=== PATIENT | female | born 1970 | race Caucasian/White ===

== ENCOUNTER → 2018-04-26 15:01 | Outpatient (CLI) | payer MEDICARE, OTHER, SELFPAY ==
[2018-04-26 15:29] LABS: Add Manual Diff / Slide Review NO; Eosinophils Percent Auto 0.5 % (2-4); Lymphocytes Percent Auto 38.7 % (25-40); Mean Corpuscular HGB Conc 34.2 % (30-36); Mean Corpuscular Hemoglobin 30.9 PG (26-34); Mean Corpuscular Volume 90.5 fL (80-100); Monocytes Percent Auto 6.1 % (3-14); Neutrophils Absolute Auto 3200 /uL (1500-7000); Neutrophils Percent Auto 53.7 % (50-75); Platelet Count 277 X10^3/uL (150-400); Red Blood Cell Count 4.53 X10^6/uL (4.0-5.2); Red Cell Distribution Width 12.7 % (11.6-14.8)
--- NOTE | 2018-04-26 15:37 | DI.CT.S_ITS ---
PROCEDURE: CT ABDOMEN PELVIS W CON INDICATIONS: Abdominal pain TECHNIQUE: After the administration of oral and intravenous contrast, 5 mm thick sections acquired from the diaphragms to the symphysis. 5 mm thick coronal and sagittal reformats were performed. For radiation dose reduction, the following was used: automated exposure control, adjustment of mA and/or kV according to patient size. COMPARISON: [facility], US, PELVIC COMPLETE, 01/25/2017, 21:08. [facility], CT, ABDOMEN/PELVIS WITH CONTRAST, 04/08/2017, 16:18. [facility], CT, KIDNEY/ URETER/BLADDER, 12/21/2014, 23:38. [facility], CT, ABDOMEN/PELVIS WITH CONTRAST, 09/14/2011, 13:35. FINDINGS: Image quality: Excellent. ABDOMEN: Lung bases: Lung bases are clear. Heart size is normal. Solid organs: Liver is normal in size and enhancement. The main portal vein is noted to be prominent in size, but is similar to prior exams. No intraluminal filling defects are evident. Gallbladder is not enlarged or definitely inflamed. Mild prominence of the gallbladder wall may be present.. Biliary system is non-dilated. Pancreas enhances normally. Spleen is normal in size and enhancement. No adrenal nodules. Kidneys are normal in size and enhancement, without hydronephrosis. There may be an extrarenal pelvis on the right. This appearance is similar to prior studies. Peritoneum and bowel: There may be a small hiatal hernia. Otherwise, the stomach and duodenum are unremarkable. Small bowel loops are nondilated. However, there is mild wall prominence identified involving the proximal jejunal loops with borderline enlargement of the small bowel loops. The colon is within normal limits. The appendix is well-visualized and normal. There is no free fluid, loculated fluid collection or free air. No wall the distal colon is slightly prominent in size, but is noted to be decompressed and there is apparent wall thickening may be exaggerated by incomplete distention. Nodes and vessels: No retroperitoneal or mesenteric adenopathy. Aorta and inferior vena cava are normal in caliber. There is mild aortic atherosclerosis. Miscellaneous: No ventral hernias. PELVIS: Genitourinary: Bladder wall thickness is normal. The uterus appears to be surgically absent. Cystic structures are seen within the right and left adnexal regions. The cyst on the right measures up to approximately 3.2 cm. The cyst on the left measures up to approximately 3.3 cm. Miscellaneous: No inguinal hernias or adenopathy. May be a trace amount of free fluid within the pelvis. There is no loculated fluid collection. Bones: No suspicious bony lesions. No vertebral body compression fractures. Age-appropriate degenerative changes of the lumbosacral spine are present. IMPRESSION: 1. Nonspecific wall prominence involving the jejunum is suspicious for enteritis and clinical correlation is recommended. 2. No bowel obstruction. 3. Normal appendix. 4. Bilateral ovarian cysts. Followup pelvic ultrasound in 2-3 months would be helpful to ensure complete resolution. 5. Trace free fluid within the pelvis is felt to be physiologic. Dictated by: Edward Swartz M.D. on 04/26/2018 at 15:58 Approved by: Edward Swartz M.D. on 04/26/2018 at 16:02
[2018-04-26 15:39] LABS: Alanine Aminotransferase 57 IU/L (9-52); Albumin 4.6 g/dL (3.5-5.0); Albumin Globulin Ratio 1.6 (1.0-2.8); Alkaline Phosphatase 75 U/L (38-126); Aspartate Aminotransferase 44 IU/L (14-36); Bilirubin Total 0.5 mg/dL (0.2-1.3); Blood Urea Nitrogen 9 mg/dL (7-17); Calcium 9.5 mg/dL (8.4-10.2); Carbon Dioxide 27 mmol/L (22-32); Chloride 104 mmol/L (98-107); Estimated Glomerular Filt Rate > 60.0 mL/min (>60); Globulin 2.9 g/dL (1.7-4.1); Glucose 92 mg/dL (70-100); HEMOLYSIS < 15 (0-50); Potassium 4.3 mmol/L (3.4-5.1); Sodium 144 mmol/L (137-145); Total Protein 7.5 g/dL (6.3-8.2)
== END ==
PROVIDERS: PCP Family Medicine; Visit Provider Physician Assistant
DX: R10.9 Unspecified abdominal pain (principal); N83.202 Unspecified ovarian cyst, left side; N83.201 Unspecified ovarian cyst, right side
CPT/HCPCS: 36415; 74177; 80053; 85025; Q9967

== ENCOUNTER → 2018-07-12 14:05 | Outpatient (CLI) | payer MEDICARE, OTHER, SELFPAY ==
[2018-07-12 15:52] LABS: Cholesterol 224 mg/dL (140-199); HDL Cholesterol 66 mg/dL (40-60); LDL Cholesterol Calculated 118 mg/dL (<100); Triglycerides 200 mg/dL (35-150)
[2018-07-12 16:06] LABS: Vitamin D 25 Hydroxy (D3) 17.3 ng/mL (30.0-100.0)
[2018-07-12 16:18] LABS: TSH w/ Reflex to FT4 2.12 uIU/mL (0.47-4.68)
== END ==
PROVIDERS: PCP Student in an Organized Health Care Education/Training Program; Visit Provider Student in an Organized Health Care Education/Training Program
DX: E55.9 Vitamin D deficiency, unspecified (principal); Z13.220 Encounter for screening for lipoid disorders; R63.5 Abnormal weight gain
CPT/HCPCS: 36415; 80061; 82306; 84443

== ENCOUNTER → 2018-07-19 11:53 | Outpatient (CLI) | payer MEDICARE, OTHER, SELFPAY ==
--- NOTE | 2018-07-19 11:56 | DI.US.S_ITS ---
PROCEDURE: US PELVIC COMPLETE INDICATIONS: OVARIAN CYSTS ON CT TECHNIQUE: Real-time scanning was performed of the pelvic organs, with image documentation. Additional endovaginal scanning was necessary due to incomplete visualization of the adnexal and endometrial structures by transabdominal scanning. COMPARISON: [facility], CT, CT ABDOMEN PELVIS W CON, 04/26/2018, 16:08. [facility], CT, ABDOMEN/PELVIS WITH CONTRAST, 04/08/2017, 16:18. [facility], US, PELVIC COMPLETE, 01/25/2017, 21:08. FINDINGS: Transabdominal scanning: Limited scanning through the kidneys shows no hydronephrosis. No pathologic free abdominal or pelvic fluid. Endovaginal scanning: Uterus: Uterus is surgically absent. Ovaries: Right ovary measures 4.2 x 2.9 x 2.5 cm. Left ovary measures 2.7 x 2 point 2 x 2 0.0 cm. There is a complex cystic mass in the right ovary measuring 3.0 x 3.6 x 2.3 cm with a 2.3 x 0.7 x 1.7 solid, echogenic component. On Doppler ultrasound, there is no definitive vascularity within the mass. A 1.5 x 1.0 x 1.5 cm complex cyst is noted in the left ovary. On pelvic ultrasound, there is peripheral vascularity. In addition, there is a 2.3 x 1.7 x 2.1 cm simple cyst in the left ovary. IMPRESSION: 1. Bilateral complex cystic masses the ovaries. The largest one is in the right ovary measuring 3.0 x 3.6 x 3.3 cm, most likely hemorrhagic cyst. Recommend short-term followup in 6 weeks. 2. Absence of uterus consistent with hysterectomy. Dictated by: Jillian Hernandez M.D. on 07/19/2018 at 15:13 Approved by: Jillian Hernandez M.D. on 07/19/2018 at 15:18
== END ==
PROVIDERS: PCP Student in an Organized Health Care Education/Training Program; Visit Provider Student in an Organized Health Care Education/Training Program
DX: N83.292 Other ovarian cyst, left side (principal); N83.291 Other ovarian cyst, right side; Z90.710 Acquired absence of both cervix and uterus
CPT/HCPCS: 76830; 76856

== ENCOUNTER → 2018-08-09 15:10 | Outpatient (CLI) | payer MEDICARE, OTHER, SELFPAY ==
--- NOTE | 2018-08-09 15:13 | DI.MG.S_ITS ---
BILATERAL DIGITAL SCREENING MAMMOGRAM 3D/2D WITH CAD: 08/09/2018 CLINICAL: Routine screening. Comparison is made to exams dated: 12/17/2006 mammogram and 10/15/2005 mammogram - [facility]. The tissue of both breasts is extremely dense, which lowers the sensitivity of mammography. Current study was also evaluated with a Computer Aided Detection (CAD) system. No significant masses, calcifications, or other findings are seen in either breast. There has been no significant interval change. IMPRESSION: NEGATIVE There is no mammographic evidence of malignancy. A 1 year screening mammogram is recommended. This exam was interpreted at Station ID: [id number]. NOTE: For mammograms, a report in lay terms will be sent to the patient. Approximately 15% of breast malignancies will not be visualized mammographically. In the management of a palpable breast mass, a negative mammogram must not discourage biopsy of a clinically suspicious lesion. Electronically Signed By: Sabino sykes/henrique:08/09/2018 17:31:44 letter sent: Normal Exam ACR BI-RADS Category 1: Negative [id number]
== END ==
PROVIDERS: PCP Student in an Organized Health Care Education/Training Program; Visit Provider Student in an Organized Health Care Education/Training Program
DX: Z12.31 Encounter for screening mammogram for malignant neoplasm of breast (principal)
CPT/HCPCS: 77063; 77067

== ENCOUNTER → 2018-08-23 10:55 | Outpatient (CLI) | payer MEDICARE, OTHER, SELFPAY ==
[2018-08-23 12:27] LABS: Cancer Antigen 125 17 U/mL (0-35)
[2018-08-27 15:38] LABS: Human HE4 Antigen 37 pmol/L
== END ==
PROVIDERS: PCP Student in an Organized Health Care Education/Training Program
DX: N83.209 Unspecified ovarian cyst, unspecified side (principal)
CPT/HCPCS: 36415; 86304; 86305

== ENCOUNTER 2018-08-25 17:10 | Emergency (ER) | payer MEDICARE, OTHER, SELFPAY ==
[2018-08-25 17:31] VITALS: BP 107/70; PULSE 73; RESP 15; TEMP 37.1; O2SAT 100; BMI 23.0
--- NOTE | 2018-08-25 17:42 | DI.US.S_ITS ---
PROCEDURE: US PELVIC COMPLETE INDICATIONS: LEFT LOWER QUADRANT PAIN TECHNIQUE: Real-time scanning was performed of the pelvic organs, with image documentation. Additional endovaginal scanning was necessary due to incomplete visualization of the adnexal and endometrial structures by transabdominal scanning. COMPARISON: [facility], , PELVIC COMPLETE, 07/19/2018, 12:17. [facility], , PELVIC COMPLETE, 01/25/2017, 21:08. FINDINGS: Transabdominal scanning: Limited scanning through the kidneys shows no hydronephrosis. No pathologic free abdominal or pelvic fluid. Endovaginal scanning: Uterus: Surgically absent. Ovaries: Ovary measures 2.5 x 1.9 x 1.5 cm and the left measures 3.1 x 2.5 x 1.8 cm. There is a moderately complex cyst in the left ovary measuring 2.1 x 1.3 x 1.2 cm containing internal echoes without visualized internal vascularity. IMPRESSION: Prior hysterectomy. Mildly complex left ovarian cyst measuring up to 2.1 cm and otherwise the ovaries appear normal. Sonographic followup to confirm resolution of the left ovarian cyst is recommended. Dictated by: Dwayne Hernandez M.D. on 08/25/2018 at 19:23 Approved by: Dwayne Hernandez M.D. on 08/25/2018 at 19:28
[2018-08-25] MEDS: SODIUM CHLORIDE 0.9% 1,000 ML 1000 ML IV (18:13)
[2018-08-25] MEDS: KETOROLAC 60 MG/2 ML VIAL 30 MG IV (18:15)
[2018-08-25] MEDS: ONDANSETRON 4 MG/2 ML INJ IV (18:16)
--- NOTE | 2018-08-25 18:20 | ED.FEMALEGU ---
HPI - Female Genitourinary <ANGELICA Le - Last Filed: 08/25/18 20:14> General Chief complaint: OB/Uterine Contractions Stated complaint: PAIN, STATES OVARIAN CYSTS Time Seen by Provider: 08/25/18 17:32 Source: patient and family Mode of arrival: ambulatory Limitations: no limitations History of Present Illness HPI Narrative: The patient is a 48-year-old female nonsmoker presents with her daughter for chief complaint left lower quadrant pain and right lower quadrant pain. She has history of ovarian cysts, and planned surgery on 09/09/2018. She denies any fevers vomiting or diarrhea. She has not taken anything for the pain since this morning when she took ibuprofen and Tylenol. She denies any dysuria urgency or frequency. She denies any vaginal discharge or bleeding. Related Data Home Medications Medication Instructions Recorded Confirmed duloxetine 30 mg capsule,delayed 30 mg PO DAILY 08/18/18 08/24/18 release Previous Rx's Medication Instructions Recorded ketorolac 10 mg PO Q4-6H PRN 2 Days #8 tab 08/25/18 tramadol 50 mg PO Q8H PRN #7 tab 08/25/18 Allergies Allergy/AdvReac Type Severity Reaction Status Date / Time cephalexin [From KEFLEX] Allergy Severe DRY HEAVES Verified 08/25/18 17:31 Review of Systems <ANGELICA Le - Last Filed: 08/25/18 20:14> Review of Systems GENERAL: Denies chills, fatigue, malaise, fever, sweats. HEENT: Denies sinus pain, ear pain, sore throat, difficulty swallowing, dizziness. RESPIRATORY: Denies dyspnea, cough, wheezing, hemoptysis, sputum. CARDIOVASCULAR: Denies chest pain, palpitations, orthopnea, edema, GASTROINTESTINAL: see HPI : See HPI MUSCULOSKELETAL: denies weakness, joint pain, or bony pain SKIN: Denies rash, skin lesions, or other NEUROLOGIC: Denies weakness, headache, numbness, change in speech, confusion, seizures, incoordination. PSYCHIATRIC: No concerning psychosocial issues. 12 point review of systems is negative except for those stated above PFSH <ANGELICA Le - Last Filed: 08/25/18 20:14> Medical History Ovarian cyst (Acute) Interstitial cystitis (Chronic) Surgical History History of breast biopsy (Resolved) History of hysterectomy (Resolved) History of surgical removal of nipple (Resolved) History of tonsillectomy (Resolved) Status post epidural steroid injection (Resolved) Social History (Updated 08/18/18 @ 15:26 by Samia Diaz LPN) household members: spouse Smoking Status: Never smoker alcohol intake: never substance use type: does not use additional social history: Adopted Social History household members: spouse Smoking Status: Never smoker alcohol intake: never substance use type: does not use additional social history: Adopted Exam <ANGELICA Le - Last Filed: 08/25/18 20:14> Narrative Exam Narrative: GENERAL: This is a well-nourished, well-developed patient lying on side HEAD: Atraumatic. Normocephalic. No temporal or scalp tenderness. EYES: Pupils equal round and reactive. Extraocular motions intact. No scleral icterus. No injection or drainage. ENT: Nose without bleeding, purulent drainage or septal hematoma. Throat without erythema, tonsillar hypertrophy or exudate. Uvula midline. Airway patent. NECK: Trachea midline. No JVD or lymphadenopathy. Supple, nontender, no meningeal signs. CARDIOVASCULAR: Regular rate and rhythm without murmurs, gallops, or rubs. RESPIRATORY: Clear to auscultation. Breath sounds equal bilaterally. No wheezes, rales, or rhonchi. No cough. No accessory muscle use. No increased respiratory effort GASTROINTESTINAL: Abdomen soft, left lower quadrant tenderness to palpation, nondistended. No hepato-splenomegaly, or palpable masses. No guarding. active bowel sounds all 4 quadrants EXTREMITIES: No clubbing, cyanosis, or edema. No joint tenderness, effusion, or edema noted. BACK: Nontender without deformity or crepitance. No flank tenderness. NEURO: AOx3. SKIN: No rash or erythema. Initial Vital Signs Initial Vital Signs: Vital Signs Temperature 98.8 F 08/25/18 17:31 Pulse Rate 73 08/25/18 17:31 Respiratory Rate 15 08/25/18 17:31 Blood Pressure 107/70 08/25/18 17:31 Pulse Oximetry 100 08/25/18 17:31 <Shlomo Li DO - Last Filed: 08/25/18 20:51> Initial Vital Signs Initial Vital Signs: Vital Signs Temperature 98.8 F 08/25/18 17:31 Pulse Rate 73 08/25/18 17:31 Respiratory Rate 15 08/25/18 17:31 Blood Pressure 107/70 08/25/18 17:31 Pulse Oximetry 100 08/25/18 17:31 Course <PEDRO Le-BC - Last Filed: 08/25/18 20:14> Orders Ordered: ED Orders 08/25/18 17:42 US pelvic complete Stat 08/25/18 18:07 Complete Blood Count AUTO DIFF Stat Comprehensive Metabolic Panel Stat Discontinued Medications Sodium Chloride (Normal Saline 0.9%) 1,000 mls @ 1,000 mls/hr IV BOLUS ONE Stop: 08/25/18 18:41 Last Infusion: 08/25/18 19:17 Dose: 0 mls/hr Admin: 08/25/18 18:13 Dose: 1,000 mls/hr Ketorolac Tromethamine (Toradol) 30 mg IV NOW ONE Stop: 08/25/18 17:45 Last Admin: 08/25/18 18:15 Dose: 30 mg Ondansetron HCl (Zofran) 4 mg IV NOW ONE Stop: 08/25/18 17:45 Last Admin: 08/25/18 18:16 Dose: 4 mg Tramadol HCl (Ultram) 50 mg PO NOW ONE Stop: 08/25/18 18:55 Last Admin: 08/25/18 19:15 Dose: 50 mg Vital Signs - 8 hr 08/25/18 17:31 08/25/18 19:52 Temperature 98.8 F 97.9 F Pulse Rate 73 71 Respiratory Rate 15 20 Blood Pressure 107/70 Blood Pressure [Left Arm] 112/51 L Pulse Oximetry 100 100 <Shlomo Li DO - Last Filed: 08/25/18 20:51> Orders Ordered: ED Orders 08/25/18 17:42 US pelvic complete Stat 08/25/18 18:07 Complete Blood Count AUTO DIFF Stat Comprehensive Metabolic Panel Stat Discontinued Medications Sodium Chloride (Normal Saline 0.9%) 1,000 mls @ 1,000 mls/hr IV BOLUS ONE Stop: 08/25/18 18:41 Last Infusion: 08/25/18 19:17 Dose: 0 mls/hr Admin: 08/25/18 18:13 Dose: 1,000 mls/hr Ketorolac Tromethamine (Toradol) 30 mg IV NOW ONE Stop: 08/25/18 17:45 Last Admin: 08/25/18 18:15 Dose: 30 mg Ondansetron HCl (Zofran) 4 mg IV NOW ONE Stop: 08/25/18 17:45 Last Admin: 08/25/18 18:16 Dose: 4 mg Tramadol HCl (Ultram) 50 mg PO NOW ONE Stop: 08/25/18 18:55 Last Admin: 08/25/18 19:15 Dose: 50 mg Vital Signs - 8 hr 08/25/18 17:31 08/25/18 19:52 Temperature 98.8 F 97.9 F Pulse Rate 73 71 Respiratory Rate 15 20 Blood Pressure 107/70 Blood Pressure [Left Arm] 112/51 L Pulse Oximetry 100 100 MDM - Female Genitourinary <PEDRO Le- - Last Filed: 08/25/18 20:14> Lab Data Result diagrams: 08/25/18 18:07 08/25/18 18:07 Lab Results 08/25/18 08/25/18 Range/Units 18:07 18:07 WBC 4.0 L (4.5-11.0) X10^3/uL RBC 4.52 (4.0-5.2) X10^6/uL Hgb 13.8 (12.0-16.0) g/dL Hct 41.1 (36-46) % MCV 90.8 (80-100) fL MCH 30.6 (26-34) PG MCHC 33.6 (30-36) % RDW 13.2 (11.6-14.8) % Plt Count 240 (150-400) X10^3/uL Neut % (Auto) 62.8 (50-75) % Lymph % (Auto) 28.3 (25-40) % [place] % (Auto) 7.6 (3-14) % Eos % (Auto) 0.6 L (2-4) % Baso % (Auto) 0.7 (0-2) % Neut # (Auto) 2500 (0406-5398) /uL Lymph # (Auto) 1100 (1305-5360) /uL [place] # (Auto) 300 (0-900) /uL Eos # (Auto) 0 (0-450) /uL Baso # (Auto) 0 (0-100) /uL Sodium 136 L (137-145) mmol/L Potassium 4.0 (3.4-5.1) mmol/L Chloride 102 (98-107) mmol/L Carbon Dioxide 24 (22-32) mmol/L BUN 17 (7-17) mg/dL Creatinine 0.60 (0.52-1.04) mg/dL Estimated GFR > 60.0 (>60) mL/min BUN/Creatinine Ratio 28.3 H (6-22) Glucose 99 (70-100) mg/dL Calcium 8.9 (8.4-10.2) mg/dL Total Bilirubin 0.4 (0.2-1.3) mg/dL AST 23 (14-36) IU/L ALT 26 (9-52) IU/L Alkaline Phosphatase 73 (38-126) U/L Total Protein 7.1 (6.3-8.2) g/dL Albumin 4.5 (3.5-5.0) g/dL Globulin 2.6 (1.7-4.1) g/dL Albumin/Globulin Ratio 1.7 (1.0-2.8) Imaging Data Pelvic US: Radiologist's impression: [place] [address] Ultrasound Report Signed Patient: Pauly Baer KMR#: [id number] : 1970Acct:[id number] Age/Sex: 48 / FDate of Service: 08/25/18 Loc: ED Accession Number: [id number] Procedure: US pelvic complete Ordering Provider: Rachel Newell- PROCEDURE: US PELVIC COMPLETE INDICATIONS: LEFT LOWER QUADRANT PAIN TECHNIQUE: Real-time scanning was performed of the pelvic organs, with image documentation. Additional endovaginal scanning was necessary due to incomplete visualization of the adnexal and endometrial structures by transabdominal scanning. COMPARISON: [facility], , US PELVIC COMPLETE, 07/19/2018, 12:17. [facility], , PELVIC COMPLETE, 01/25/2017, 21:08. FINDINGS: Transabdominal scanning: Limited scanning through the kidneys shows no hydronephrosis. No pathologic free abdominal or pelvic fluid. Endovaginal scanning: Uterus: Surgically absent. Ovaries: Ovary measures 2.5 x 1.9 x 1.5 cm and the left measures 3.1 x 2.5 x 1.8 cm. There is a moderately complex cyst in the left ovary measuring 2.1 x 1.3 x 1.2 cm containing internal echoes without visualized internal vascularity. IMPRESSION: Prior hysterectomy. Mildly complex left ovarian cyst measuring up to 2.1 cm and otherwise the ovaries appear normal. Sonographic followup to confirm resolution of the left ovarian cyst is recommended. Dictated by: Dwayne Hernandez M.D. on 08/25/2018 at 19:23 Approved by: Dwayne Hernandez M.D. on 08/25/2018 at 19:28 [facility] Narrative Medical decision making narrative: The patient is a 48-year-old female presents with pelvic pain from known pelvic cyst. She states that one was growing rapidly, and possibly metastatic. She presented with acutely worsening pain. She had a pelvic ultrasound that showed no acute etiology. She is afebrile, had a grossly normal CBC CMP. She declined to give a UA prior to discharge. I did discuss at length that she has a follow-up with her primary care provider as well as her OBGYN. She was treated with Toradol and tramadol in the emergency department. I did give her prescriptions for tramadol as well as Toradol, with a clear discussion should not take any other NSAIDs when taking the Toradol. Patient declined any need for Zofran as she states she has plenty at home. No questions or concerns upon discharge. Return precautions discussed including acute concerns such as chest pain, heart attack, inability keep down fluids. <Shlomo Li, DO - Last Filed: 08/25/18 20:51> Lab Data Lab Results 08/25/18 08/25/18 Range/Units 18:07 18:07 WBC 4.0 L (4.5-11.0) X10^3/uL RBC 4.52 (4.0-5.2) X10^6/uL Hgb 13.8 (12.0-16.0) g/dL Hct 41.1 (36-46) % MCV 90.8 (80-100) fL MCH 30.6 (26-34) PG MCHC 33.6 (30-36) % RDW 13.2 (11.6-14.8) % Plt Count 240 (150-400) X10^3/uL Neut % (Auto) 62.8 (50-75) % Lymph % (Auto) 28.3 (25-40) % [place] % (Auto) 7.6 (3-14) % Eos % (Auto) 0.6 L (2-4) % Baso % (Auto) 0.7 (0-2) % Neut # (Auto) 2500 (8242-6514) /uL Lymph # (Auto) 1100 (5785-2159) /uL [place] # (Auto) 300 (0-900) /uL Eos # (Auto) 0 (0-450) /uL Baso # (Auto) 0 (0-100) /uL Sodium 136 L (137-145) mmol/L Potassium 4.0 (3.4-5.1) mmol/L Chloride 102 (98-107) mmol/L Carbon Dioxide 24 (22-32) mmol/L BUN 17 (7-17) mg/dL Creatinine 0.60 (0.52-1.04) mg/dL Estimated GFR > 60.0 (>60) mL/min BUN/Creatinine Ratio 28.3 H (6-22) Glucose 99 (70-100) mg/dL Calcium 8.9 (8.4-10.2) mg/dL Total Bilirubin 0.4 (0.2-1.3) mg/dL AST 23 (14-36) IU/L ALT 26 (9-52) IU/L Alkaline Phosphatase 73 (38-126) U/L Total Protein 7.1 (6.3-8.2) g/dL Albumin 4.5 (3.5-5.0) g/dL Globulin 2.6 (1.7-4.1) g/dL Albumin/Globulin Ratio 1.7 (1.0-2.8) Discharge Plan Departure Patient Disposition: Home Clinical Impression: Ovarian cyst Qualifiers: Laterality: left Qualified Code(s): N83.202 - Unspecified ovarian cyst, left side Discharge Date/Time: 08/25/18 19:58 Interventions: ED Discharge Assessment Last Done: 08/25/18 19:57 Instructions: DI for Ovarian Cyst Activity Restrictions/Additional Instructions: Your ultrasound shows an ovarian cyst. Please follow up with your primary care provider as we discussed. Your ovarian cyst is still complex but appears smaller than previous. I have given you a prescription of Toradol for pain. Do not take this with any other NSAIDs such as Aleve or ibuprofen. I have also given you a prescription of tramadol, which can be constipating and sedating. Please follow up with primary care provider as well as her OBGYN as soon as possible. Please come back to emergency department for any acute concerns. Prescriptions: New tramadol 50 mg tablet 50 mg PO Q8H PRN (Reason: pain) Qty: 7 RF: 0 ketorolac 10 mg tablet 10 mg PO Q4-6H PRN (Reason: pain) 2 Days Qty: 8 RF: 0 No Action duloxetine [Cymbalta] 30 mg capsule,delayed release(DR/EC) 30 mg PO DAILY RF: 0 Referrals: Kenny Wilkinson MD [Primary Care Provider] - <Shlomo Li DO - Last Filed: 08/25/18 20:51> Cosign ED Attending Esauature Attestation: I was available for consultation during this patient's emergency department encounter
[2018-08-25 18:23] LABS: Add Manual Diff / Slide Review NO; Basophils Absolute Auto 0 /uL (0-100); Basophils Percent Auto 0.7 % (0-2); Eosinophils Absolute Auto 0 /uL (0-450); Eosinophils Percent Auto 0.6 % (2-4); Hematocrit 41.1 % (36-46); Hemoglobin 13.8 g/dL (12.0-16.0); Lymphocytes Absolute Auto 1100 /uL (1100-4500); Lymphocytes Percent Auto 28.3 % (25-40); Mean Corpuscular HGB Conc 33.6 % (30-36); Mean Corpuscular Hemoglobin 30.6 PG (26-34); Mean Corpuscular Volume 90.8 fL (80-100); Monocytes Absolute Auto 300 /uL (0-900); Monocytes Percent Auto 7.6 % (3-14); Neutrophils Absolute Auto 2500 /uL (1500-7000); Neutrophils Percent Auto 62.8 % (50-75); Platelet Count 240 X10^3/uL (150-400); Red Blood Cell Count 4.52 X10^6/uL (4.0-5.2); Red Cell Distribution Width 13.2 % (11.6-14.8)
[2018-08-25 18:38] LABS: Alanine Aminotransferase 26 IU/L (9-52); Albumin 4.5 g/dL (3.5-5.0); Albumin Globulin Ratio 1.7 (1.0-2.8); Alkaline Phosphatase 73 U/L (38-126); Aspartate Aminotransferase 23 IU/L (14-36); BUN Creatinine Ratio 28.3 (6-22); Bilirubin Total 0.4 mg/dL (0.2-1.3); Blood Urea Nitrogen 17 mg/dL (7-17); Calcium 8.9 mg/dL (8.4-10.2); Carbon Dioxide 24 mmol/L (22-32); Chloride 102 mmol/L (98-107); Estimated Glomerular Filt Rate > 60.0 mL/min (>60); Globulin 2.6 g/dL (1.7-4.1); Glucose 99 mg/dL (70-100); HEMOLYSIS < 15 (0-50); Sodium 136 mmol/L (137-145); Total Protein 7.1 g/dL (6.3-8.2)
[2018-08-25] MEDS: TRAMADOL 50 MG TABLET PO (19:15)
[2018-08-25 19:52] VITALS: BP 112/51; PULSE 71; RESP 20; TEMP 36.6; O2SAT 100
== END 2018-08-25 19:58 | disposition home or self-care (01) ==
PROVIDERS: Emergency Provider Nurse Practitioner Family; Family Provider Student in an Organized Health Care Education/Training Program; PCP Student in an Organized Health Care Education/Training Program
DX: N83.202 Unspecified ovarian cyst, left side (principal)
CPT/HCPCS: 36591; 76830; 76856; 80053; 85025; 96361; 96374; 96375; 99283; 99284; J1885; J2405

== ENCOUNTER → 2018-08-30 10:36 | Outpatient (CLI) | payer MEDICARE, OTHER, SELFPAY ==
--- NOTE | 2018-08-30 10:39 | DI.RAD.S_ITS ---
PROCEDURE: FL UPPER GI W AIR INDICATIONS: Possible hiatal hernia COMPARISON: [facility], CT, CT ABDOMEN PELVIS W CON, 04/26/2018, 16:08. [facility], US, US PELVIC COMPLETE, 08/25/2018, 18:13. FINDINGS: KUB: Preprocedural nutritional services host film demonstrates a normal bowel gas pattern. No suspicious abdominal calcifications. Visualized solid organ contours appear normal. Bony structures appear unremarkable. Esophagus: Esophageal mucosa is normal on air-contrast views. On single-contrast views, there is normal esophageal peristalsis. No strictures, extrinsic mass effects, or diverticula. There is a small sliding hiatal hernia. Mild gastroesophageal reflux is present. There is normal transit of a calibrated barium tablet through the esophagus. Stomach: The stomach is normally distensible, with normal rugal fold thickness. No mucosal masses or ulcers. Pylorus and duodenal bulb appear normal in morphology. Duodenal folds are normal in thickness as well. IMPRESSION: 1. Small sliding hiatal hernia. 2. Mild gastroesophageal reflux. Dictated by: Jillian Hernandez M.D. on 08/30/2018 at 11:30 Approved by: Jillian Hernandez M.D. on 08/30/2018 at 11:43
== END ==
PROVIDERS: Family Provider Student in an Organized Health Care Education/Training Program; PCP Student in an Organized Health Care Education/Training Program; Visit Provider Surgery
DX: K44.9 Diaphragmatic hernia without obstruction or gangrene (principal); K21.9 Gastro-esophageal reflux disease without esophagitis
CPT/HCPCS: 74247

== ENCOUNTER 2018-09-09 12:22 | Day surgery (SDC) | payer MEDICARE, OTHER, SELFPAY ==
[2018-08-24 10:32] VITALS: BMI 23.0
[2018-09-09] VITALS (14 sets, daily range): BP systolic 107–132; BP diastolic 67–81; PULSE 62–100; RESP 8–17; TEMP 36.4–37.1; O2SAT 95–100; BMI 23.9
--- NOTE | 2018-09-09 | PATH_ITS ---
[facility] Accession Number: [id number] . 01 Material submitted: . FALLOPIAN TUBE/OVARY - BILATERAL FALLOPIAN TUBES AND OVARIES . 02 Diagnosis: Bilateral Fallopian Tubes and Ovaries, Procedure Not Specified: Fragments of ovary with no significant histomorphologic abnormality. Two fallopian tube with benign paratubal cysts (1-7 mm in greatest dimension) and no significant histomorphologic abnormality. [facility]/09/12/2018 . 02 Electronically signed: . Yasmin Easley MD, Pathologist NPI- [id number] . 01 Gross description: . Received in formalin, labeled bilateral fallopian tubes/ovaries, are multiple pieces of ovarian tissue (5.0 x 2.5 x 1.5 cm in aggregate) and two fimbriated fallopian tubes (tube #1: length-6.5 cm, diameter-0.5 cm; tube #2: length-3.7 cm, diameter-0.6 cm). The ovarian tissue has alanis-yellow, shiny, bosselated serosa and alanis-white, solid, firm parenchyma with corpus albicans identified. The fallopian tubes have alanis-ross, smooth, shiny serosa with multiple paratubal cysts (0.1-0.7 cm) containing clear, colorless fluid. The lumens are alanis and unremarkable. Section code: (A1, A2) ovarian tissue, telephone claims representative serial section; (A3) fallopian tube #1, telephone claims representative serial section; (A4) fimbria #1, bilvalved, entirely submitted; (A5) fallopian tube #2, telephone claims representative serial section; (A6) fimbria #2, bivalved, entirely submitted. ([id number]) /FRR . 02 Pathologist provided ICD-10: Z30.2 . 02 CPT . 429504 Performed at: 01 [facility] [address] [place] [address], [place], [place] [id number] MD Adriano Gardner MD Phone: [phone] Performed at: 02 [facility] [address] [address] [place], [place] [id number] MD Idalia Gaxiola MD Phone: [phone]
--- NOTE | 2018-09-09 12:45 | PM.PREOP ---
Pre-operative Note Interval Note History & Physical reviewed/Exam performed by Physician: Yes Changes to H&P: No ASA Class (for procedural sedation): II
[2018-09-09] MEDS: CLINDAMYCIN 900 MG/50 ML PIGGYBACK 50 MG IV (13:12)
--- NOTE | 2018-09-09 13:39 | SUR.OPER ---
Lithotomy on padded OR bed, head on pillow, arms secured on padded arm boards at <90 degrees abduction. Legs secured in padded yellow fins stirrups.
[2018-09-09] MEDS: BUPIVACAINE 0.5% W/ EPI (PF) VIAL 15 ML INJ (13:51)
[2018-09-09] MEDS: ACETAMINOPHEN IV 1,000 MG/100 ML VIAL 400 MG IV (13:55)
--- NOTE | 2018-09-09 14:14 | PM.GYNOP.1 ---
Operative Date/Time/Diagnoses Date of procedure: 09/09/18 Time of procedure: 14:14 Pre-op diagnosis: Pelvic pain Recurrent ovarian cyst Post-op diagnosis: same Procedure: Procedures Operation Date: 09/09/18 13:30 Actual Procedures Side Surgeon p Diagnostic Laparoscopy with bilateral salpingoophorectomy Neftali Baker MD Indications: Pelvic pain Recurrent ovarian cyst Surgeon: Neftali Baker Anesthesia Type: General Operative Notes Findings: Normal tubes and ovaries bilateral Closure Type: primary Specimen(s): left tube & ovary and right tube & ovary Estimated blood loss (mL): 25 Blood products transfused: none Procedure in detail: The patient was placed supine upon the operating table and anesthetized. She was then placed in the dorsal lithotomy position and examined under anesthesia. Under anesthesia she was felt to have an absent uterus and no distinct masses. the patient was then draped and prepared in the usual fashion. a sponge stick was placed into the vagina for elevation of the remaining uterine cervix. Attention was then turned to the abdomen. approximately 6 cc of 0.5% Marcaine in 1 to [id number] epinephrine were injected into the umbilicus. Sharp knife incision was made. The Veress needle was placed and approximately 4.3 L of carbon dioxide gas were insufflated to a final resting pressure of 15 cm of water. The Veress needle was withdrawn. The large 12 mm trocar was set in place. The laparoscopic was placed there through in the pelvic contents visualized. Patient had a large amount of bowel or pelvis which was moved in a cephalad direction. The right tube and ovary could be seen. It appeared normal. the left tube and ovary could be seen and appeared normal. 5 mm ports were then placed laterally after injection with 0.5% Marcaine in 1 to [id number] epinephrine. These were done under direct laparoscopic vision. to the left-hand port the right tube was grasped and elevated. PlasmaKinetic forceps was placed through the right port and the infundibulopelvic ligament was cauterized and cut sequentially until the ovary was free. This ovary and tube were then pulled through the umbilicus and with the scope and trocar. This was sent for pathologic identification. The large 12 mm trocar was set in place. Pelvic contents were visualized. The left tube was grasped to the right hand port and elevated. The PlasmaKinetic placed to the left-hand port was used to cauterize the infundibulopelvic ligament and the remainder of the ligament attaching the ovary and tube. The scope was placed through the right lateral port. Large grasping forceps was used through the 12 mm port and the ovary and tube removed without difficulty. the 12 mm port was placed again. Pelvic contents were visualized and no bleeding points were seen. To the right hand port the suction tearoom hostess copiously irrigated the pelvis. There were no bleeding points. Scopes and trocars were then withdrawn. The umbilical incision was closed with a deep 0 Vicryl suture. it was further approximated with running three 0 Vicryl suture. the two 5 mm sites were closed with horizontal mattress three 0 Vicryl suture. skin was approximated all areas using Steri-Strips. Sponge stick was removed from the vagina. The patient was taken to the recovery room in a satisfactory condition. Complications: none Post-operative Condition: stable Disposition: PACU Plan for aftercare: Home
--- NOTE | 2018-09-09 14:21 | P.OP_ITS ---
Operative Date/Time/Diagnoses Date of procedure: 09/09/18 Time of procedure: 14:14 Pre-op diagnosis: Pelvic pain Recurrent ovarian cyst Post-op diagnosis: same Procedure: Procedures Operation Date: 09/09/18 13:30 Actual Procedures Side Surgeon p Diagnostic Laparoscopy with bilateral salpingoophorectomy Neftali Baker MD Indications: Pelvic pain Recurrent ovarian cyst Surgeon: Neftali Baker Anesthesia Type: General Operative Notes Findings: Normal tubes and ovaries bilateral Closure Type: primary Specimen(s): left tube & ovary and right tube & ovary Estimated blood loss (mL): 25 Blood products transfused: none Procedure in detail: The patient was placed supine upon the operating table and anesthetized. She was then placed in the dorsal lithotomy position and examined under anesthesia. Under anesthesia she was felt to have an absent uterus and no distinct masses. the patient was then draped and prepared in the usual fashion. a sponge stick was placed into the vagina for elevation of the remaining uterine cervix. Attention was then turned to the abdomen. approximately 6 cc of 0.5% Marcaine in 1 to [id number] epinephrine were injected into the umbilicus. Sharp knife incision was made. The Veress needle was placed and approximately 4.3 L of ca rbon dioxide gas were insufflated to a final resting pressure of 15 cm of water. The Veress needle was withdrawn. The large 12 mm trocar was set in place. The laparoscopic was placed there through in the pelvic contents visualized. Patient had a large amount of bowel or pelvis which was moved in a cephalad direction. The right tube and ovary could be seen. It appeared normal. the left tube and ovary could be seen and appeared normal. 5 mm ports were then placed laterally after injection with 0.5% Marcaine in 1 to [id number] epinephrine. These were done under direct laparoscopic vision. to the left-hand port the right tube was grasped and elevated. PlasmaKinetic forceps was placed through the right port and the infundibulopelvic ligament was cauterized and cut sequentially until the ovary was free. This ovary and tube were then pulled through the umbilicus and with the scope and trocar. This was sent for pathologic identification. The large 12 mm trocar was set in place. Pelvic contents were visualized. The left tube was grasped to the right hand port and elevated. The PlasmaKinetic placed to the left-hand port was used to cauterize the infundibulopelvic ligament and the remainder of the ligament attaching the ovary and tube. The scope was placed through the right lateral port. Large grasping forceps was used through the 12 mm port and the ovary and tube removed without difficulty. the 12 mm port was placed again. Pelvic contents were visualized and no bleeding points were seen. To the right hand port the suction lather apprentice copiously irrigated the pelvis. There were no bleeding points. Scopes and trocars were then withdrawn. The umbilical incision was closed with a deep 0 Vicryl suture. it was further approximated with running three 0 Vicryl suture. the two 5 mm sites were closed with horizontal mattress three 0 Vicryl suture. skin was approximated all areas using Steri-Strips. Sponge stick was removed from the vagina. The patient was taken to the recovery room in a satisfactory condition. Complications: none Post-operative Condition: stable Disposition: PACU Plan for aftercare: Home
--- NOTE | 2018-09-09 14:21 | PM.DS.1 ---
History of Present Illness Date Patient Seen: 09/09/18 Time Patient Seen: 14:21 Chief complaint: Pelvic pain/recurrent ovarian cyst Narrative: Patient had been seen and followed for pelvic pain and recurrent ovarian cysts post hysterectomy. Patient desired removal of tubes and ovaries Discharge Providers Discharge Date: 09/09/18 Primary care physician: Kenny Wilkinson MD Discharge provider: Neftali Baker MD Summary Discharge Diagnosis: Pelvic pain Recurrent ovarian cyst Hospital Course: Patient was admitted and underwent laparoscopic bilateral salpingectomy oophorectomy. Postoperatively she did well she remained afebrile stable vital signs. Status at Discharge Cognitive/behavioral status at discharge: oriented Functional status at discharge: independent ambulation Overall status at discharge: patient is back to baseline Time Spent with Patient Less than 30 minutes Exam Vital Signs (past 8 hours): - 09/09/18 12:53 Temperature 98.4 F Pulse Rate 62 Respiratory Rate 14 Blood Pressure 122/77 Pulse Oximetry 100 Oxygen Delivery Method Room Air Narrative Exam Narrative: Abdomen is soft and nondistended Incisions are not bleeding Discharge Plan Discharge Plan Patient Disposition: Home Discharge Med Rec/Prescriptions Prescriptions: New oxycodone-acetaminophen [Percocet] 5-325 mg tablet 1 tab PO Q4-6H PRN (Reason: pain) Qty: 14 RF: 0 Continued duloxetine [Cymbalta] 30 mg capsule,delayed release(DR/EC) 30 mg PO DAILY RF: 0 tramadol 50 mg tablet 50 mg PO Q8H PRN (Reason: pain) Qty: 7 RF: 0 Follow up/Referrals: Kenny Wilkinson MD [Primary Care Provider] - Discharge Orders: Discharge (Now); Ordered 09/09/18 Ordered By: Neftali Baker Provider Discharge Instructions Diet: Diet as Tolerated Activity: Up ad julio Skin/Wound/Dressing Care Skin care: Keep incisions clean and dry Report to your healthcare provider any signs of infection, such as:: chills, fever, increased pain, unusual drainage and unusual redness Dressing: Steri-Strips can be removed in one week Other wound treatment: Keep clean and dry Visit Report/Discharge Packet Instructions: DI for Laparoscopy Stand Alone Forms: Surgery Discharge Discharge Data Primary Care Provider: Kenny Wilkinson Attending Provider: Neftali Baker
[2018-09-09] MEDS: fentaNYL 100 MCG/2 ML INJ 50 MCG IV ×3 (14:27→15:19)
[2018-09-09] MEDS: ONDANSETRON 4 MG/2 ML INJ IV ×2 (14:44→15:20)
[2018-09-09] MEDS: hydrOXYzine 50 MG/ML INJ 25 MG IM (14:46)
[2018-09-09] MEDS: BENZOCAINE/MENTHOL 1 LOZ PKT 1 EACH PO (14:58)
--- NOTE | 2018-09-09 15:02 | SUR.PHASEI ---
Pt lying on lt side, mostly sleeping. Reported pain 6/10, nausea improved. C/o sore throat, cepacol lozenge provided.
--- NOTE | 2018-09-09 15:09 | SUR.PHASEI ---
Report to Sil
--- NOTE | 2018-09-09 15:31 | SUR.PHASEI ---
Medicated for pain and nausea; both improving. Dr. Baker checked on patient. VSS, resting quietly, arouses easily. Handoff report to Markos Aleman RN
--- NOTE | 2018-09-09 15:36 | SUR.PHASEI ---
Reported nausea resolved
[2018-09-09] MEDS: OXYCODONE IR 5 MG TABLET PO ×2 (16:03→16:24)
[2018-09-09] MEDS: hydrOXYzine pamoate 25 MG CAPSULE PO (16:55)
--- NOTE | 2018-09-09 16:56 | SUR.PHASEII ---
Pt expressed desire to d/c. Transferred to bathroom by wheelchair, + void. Pt reported pain increased. Returned to stretcher, lying on lt side. Medicated.
== END 2018-09-09 17:35 | disposition home or self-care (01) ==
PROVIDERS: Family Provider Student in an Organized Health Care Education/Training Program; PCP Student in an Organized Health Care Education/Training Program
PROC: (CPT 49320; principal; 2018-09-09 13:30)
DX: N83.8 Other noninflammatory disorders of ovary, fallopian tube and broad ligament (principal)
CPT/HCPCS: 58661; 88305; J0131; J0330; J1100; J2250; J2405; J3010; J3410

== ENCOUNTER 2019-01-11 21:09 | Emergency (ER) | payer MEDICARE, OTHER, SELFPAY ==
[2019-01-11 21:15] VITALS: BP 101/69; PULSE 95; RESP 18; TEMP 36.8; O2SAT 98; BMI 24.5
--- NOTE | 2019-01-12 00:20 | ED.EXTPRO ---
HPI - Extremity Problem General Chief complaint: Extremity Problem,Nontraumatic Stated complaint: Bursitis right hip, pain, IBU not strong enough Time Seen by Provider: 01/11/19 21:46 Source: patient and family Mode of arrival: ambulatory Limitations: no limitations History of Present Illness HPI Narrative: 40-year-old female nonsmoker with history of known depression and right hip bursitis presents with worsening pain in the right hip tonight. She denies any trauma or known injury. Her her symptoms are worse with motion and improved with rest. She has been using lidocaine patches and anti-inflammatories with little relief. She denies numbness, tingling or weakness. MD Complaint: extremity pain Onset (ago): week(s) Pain Consistency: constant Location: right Quality: aching Radiation: none Relieving factors: immobilization and rest Exacerbating factors: range of motion and walking Related Data Home Medications Medication Instructions Recorded Confirmed duloxetine 30 mg capsule,delayed 30 mg PO DAILY 08/18/18 01/03/19 release Previous Rx's Medication Instructions Recorded lidocaine 5 % topical patch 1 patch TOP DAILY #15 each 01/03/19 hydrocodone-acetaminophen 1 tab PO Q4-6H PRN #14 tab 01/12/19 Allergies Allergy/AdvReac Type Severity Reaction Status Date / Time cephalexin [From KEFLEX] Allergy Severe DRY HEAVES Verified 01/03/19 13:48 adhesive tape AdvReac Mild Rash Verified 01/03/19 13:48 Review of Systems Constitutional Constitutional: Denies chills, Denies fatigue, Denies fever(s), Denies frequent falls, Denies lethargy and Denies weakness Eyes Eyes: Denies change in vision, Denies eye discharge, Denies irritation and Denies loss of vision ENT Ears, Nose, Mouth, and Throat: Denies change in voice, Denies dizziness, Denies neck pain, Denies sore throat and Denies throat swelling Cardiovascular Cardiovascular: Denies chest pain, Denies irregular heart rhythm, Denies lightheadedness, Denies palpitations, Denies dyspnea, Denies dyspnea on exertion and Denies orthopnea Respiratory Respiratory: Denies cough, Denies dyspnea, Denies dyspnea on exertion and Denies wheezing Gastrointestinal Gastrointestinal: Denies abdominal pain, Denies change in bowel habits, Denies diarrhea, Denies nausea and Denies vomiting Genitourinary Genitourinary: Denies hematuria, Denies flank pain, Denies urinary incontinence and Denies urinary urgency Musculoskeletal Musculoskeletal: Denies back pain, Reports limited range of motion, Denies muscle weakness, Denies neck pain, Denies numbness and Denies tingling Integumentary/Breasts Skin/Breast: Denies pruritus, Denies erythema, Denies rash and Denies wounds Neurologic Neurologic: Denies behavioral changes, Denies confusion, Denies dizziness, Denies frequent falls, Denies loss of vision, Denies numbness, Denies tingling and Denies weakness Psychiatric Psychiatric: Denies anxiety, Denies behavioral changes, Denies confusion, Denies depression, Denies homicidal ideation and Denies suicidal ideation Endocrine Endocrine: Denies fatigue, Denies flushing and Denies palpitations Hematologic/Lymphatic Hematologic/Lymphatic: Denies easy bruising Allergic/Immunologic Allergic/Immunologic: Denies urticaria, Denies throat swelling and Denies wheezing [facility] Medical History DDD (degenerative disc disease) (Acute) GERD (gastroesophageal reflux disease) (Acute) Hiatal hernia (Acute) Interstitial cystitis (Chronic) Ovarian cyst (Acute) Surgical History History of breast biopsy (Resolved) History of hysterectomy (Resolved) History of surgical removal of nipple (Resolved) History of tonsillectomy (Resolved) S/P bilateral salpingo-oophorectomy (Resolved 09/09/18) S/P laparoscopic procedure (Resolved 09/09/18) Status post epidural steroid injection (Resolved) Social History household members: spouse Smoking Status: Never smoker alcohol intake: never substance use type: does not use additional social history: Adopted Social History household members: spouse Smoking Status: Never smoker alcohol intake: never substance use type: does not use additional social history: Adopted Exam Narrative Exam Narrative: GEN: AOx3 and in mild distress EYES: Pupils are equal, round, and reactive to light and accommodation. Extraoccular muscles are intact bilaterally. There is no subconjunctival hemorrhage or exudate. CHEST: Lungs are clear to auscultation bilaterally and free of wheezes, rales, or rhonchi. Heart rate is regular rhythm, there are no murmurs, clicks, rubs, or gallops. There is no chest wall tenderness. ABD: Abdomen is soft and nontender. There is no guarding or rebound. Bowel sounds are normal in all 4 quadrants. There is no mass or organomegaly. EXT: Patient has full but painful active range of motion of the right hip. Her symptoms are greatly improved with passive range of motion. She has no obvious deformity in denies numbness, tingling or weakness. She has pain on palpation of greater trochanter. No pain with axial loading. Some pain with external rotation SKIN: Warm, pink, and dry. No erythema or rash Initial Vital Signs Initial Vital Signs: Vital Signs Temperature 98.3 F 01/11/19 21:15 Pulse Rate 95 H 01/11/19 21:15 Respiratory Rate 18 01/11/19 21:15 Blood Pressure 101/69 01/11/19 21:15 Pulse Oximetry 98 01/11/19 21:15 Course Orders Ordered: ED Orders 01/12/19 00:31 XR hip RT 1V Stat Discontinued Medications Hydrocodone Bitart/Acetaminophen (Vicodin Prepack) 1 bottle MISC SEEINSTR ONE Stop: 01/12/19 01:43 Last Admin: 01/12/19 01:53 Dose: 1 bottle Documented by: KATTY Vital Signs Vital signs: Vital Signs - 8 hr 01/11/19 21:15 Temperature 98.3 F Pulse Rate 95 H Respiratory Rate 18 Blood Pressure 101/69 Pulse Oximetry 98 Discharge Plan Departure Patient Disposition: Home Clinical Impression: Right hip pain Discharge Date/Time: 01/12/19 01:54 Instructions: DI for Hip Pain Activity Restrictions/Additional Instructions: *You have been diagnosed with [ right hip pain ] *What to do: *Take medications as directed *Follow up with your primary care provider in 2-3 days, call for an appointment. Let them know you were seen in the Emergency Department and that we ask that you be seen in follow up *Return to ER if you should have any new, worsening or concerning symptoms Prescriptions: New hydrocodone-acetaminophen 5-325 mg tablet 1 tab PO Q4-6H PRN (Reason: pain) Qty: 14 RF: 0 No Action lidocaine 5 % adhesive patch,medicated 1 patch TOP DAILY Qty: 15 RF: 1 duloxetine [Cymbalta] 30 mg capsule,delayed release(DR/EC) 30 mg PO DAILY RF: 0 Referrals: Kenny Wilkinson MD [Primary Care Provider] - Neftali Tyler DO [Physician] -
--- NOTE | 2019-01-12 00:31 | DI.RAD.S_ITS ---
PROCEDURE: XR HIP RT 1V INDICATIONS: Right hip pain, unable to bear weight TECHNIQUE: One view of the hip were acquired. COMPARISON: None. FINDINGS: Bones: No fractures or dislocations. No suspicious bony lesions. The visualized pelvic ring appears intact. Soft tissues: No suspicious soft tissue calcifications or masses. IMPRESSION: No fracture. No osseous lesion. If symptoms and/or clinical suspicion for pathology persists, further assessment with repeat radiographs (7-10 days) or advanced imaging (e.g. CT, MRI or bone scan) may be helpful. Dictated by: Cris Stevenson MD, PhD on 01/12/2019 at 8:22 Approved by: Cris Stevenson MD, PhD on 01/12/2019 at 8:23
[2019-01-12] MEDS: HYDROCODONE/ACET 5/325 PREPACK 1 BOTTLE MISC (01:53)
== END 2019-01-12 01:54 | disposition home or self-care (01) ==
PROVIDERS: Emergency Provider Emergency Medicine; Family Provider Student in an Organized Health Care Education/Training Program; PCP Student in an Organized Health Care Education/Training Program
DX: M25.551 Pain in right hip (principal)
CPT/HCPCS: 73501; 99282; 99283

== ENCOUNTER 2019-03-31 17:09 | Emergency (ER) | payer MEDICARE, OTHER, SELFPAY ==
[2019-03-31 17:25] VITALS: BP 113/78; PULSE 104; RESP 18; TEMP 36.7; O2SAT 99; BMI 25.0
--- NOTE | 2019-03-31 18:06 | PC.NURSE ---
Cast remover at bedside. RLE elevated on pillow. Orders to remove cast and r/o DVT from Ortho at [facility].
--- NOTE | 2019-03-31 18:28 | ED.LOWEXIN ---
HPI - Extremity Injury (Lower) General Chief Complaint: Extremity Injury, Lower Stated Complaint: pain in back of calf Time Seen by Provider: 03/31/19 18:01 Source: patient Mode of arrival: Wheelchair Limitations: no limitations History of Present Illness HPI Narrative: 48-year-old female within the past several days had a cast placed on her right lower extremity after sustaining a tib-fib fracture with subsequent open reduction internal fixation. Past several days she has had pain in her right calf muscle under the splint. Was told to come to the emergency department for evaluation for concerns of a blood clot. Related Data Home Medications Medication Instructions Recorded Confirmed aspirin 81 mg tablet,delayed 81 mg PO DAILY 03/21/19 03/21/19 release Previous Rx's Medication Instructions Recorded lidocaine 5 % topical patch 1 patch TOP DAILY #15 each 01/03/19 hydrocodone-acetaminophen 1 tab PO Q4-6H PRN #14 tab 01/12/19 meloxicam 15 mg tablet 15 mg PO DAILY #30 tab 02/08/19 Allergies Allergy/AdvReac Type Severity Reaction Status Date / Time cephalexin [From KEFLEX] Allergy Severe DRY HEAVES Verified 03/31/19 17:30 adhesive tape AdvReac Mild Rash Verified 03/31/19 17:30 Review of Systems Constitutional Constitutional: Denies headache(s) ENT Ears, Nose, Mouth, and Throat: Denies headache(s) Cardiovascular Cardiovascular: Denies chest pain and Denies dyspnea Respiratory Respiratory: Denies dyspnea Musculoskeletal Comments: Right calf pain Integumentary/Breasts Skin/Breast: Denies lesions and Denies rash Neurologic Neurologic: Denies headache(s) Comments: No changes in sensory right foot Hematologic/Lymphatic Hematologic/Lymphatic: Denies easy bleeding and Denies easy bruising Patient History Medical History DDD (degenerative disc disease) (Acute) GERD (gastroesophageal reflux disease) (Acute) Hiatal hernia (Acute) Interstitial cystitis (Chronic) Ovarian cyst (Acute) Social History household members: spouse Smoking Status: Never smoker alcohol intake: never substance use type: does not use additional social history: Adopted Substance Use Type: marijuana Exam Initial Vital Signs Initial Vital Signs: Vital Signs Temperature 98.0 F 03/31/19 17:25 Pulse Rate 104 H 03/31/19 17:25 Respiratory Rate 18 03/31/19 17:25 Blood Pressure 113/78 03/31/19 17:25 Pulse Oximetry 99 03/31/19 17:25 Const General: cooperative, comfortable and well developed Orientation: alert, awake and oriented x3 HENMT Head: normal to inspection and normocephalic Cardio Pulses: dorsalis pedis present on the right Skin Other: Surgical scars consistent with her prior history appear well without signs of erythema. Extrem Other: Patient does have some tenderness to the calf. Psych Appearance: grossly normal and well kempt Procedures Cast Removal Reason for procedure: too tight Cut saw used: Yes Cast procedure: bivalve Post Removal Neuro Exam: intact Post Removal Vascular Exam: intact Patient Tolerated Procedure: No complications Orthopedic Splinting/Casting Injury #1: Side: right Lower Extremity Injury Location: ankle Lower Extremity Immobilizer: Ravin wrap (Prior cast with Ravin wrap) Post splinting neuro exam: intact Post splinting vascular exam: intact Placed by: Provider Course Orders Ordered: ED Orders 03/31/19 18:28 US periph venous low extrem rt Stat XR tibia fibula RT 2V Stat Vital Signs Vital signs: Vital Signs - 8 hr 03/31/19 17:25 03/31/19 19:45 Temperature 98.0 F 97.8 F Pulse Rate 104 H 80 Respiratory Rate 18 16 Blood Pressure 113/78 124/72 Pulse Oximetry 99 95 MDM - Extremity Injury (Lower) Imaging Data Tib-fib x-ray: Radiologist's impression: [address] [address] XRay Report Signed Patient: Pauly Baer KMR#: [id number] : 1970Acct:[id number] Age/Sex: 48 / FDate of Service: 03/31/19 Loc: ED Accession Number: [id number] Procedure: XR tibia fibula RT 2V Ordering Provider: Shlomo Li D.O. PROCEDURE: XR TIBIA FUBULA RT 2V INDICATIONS: post operative calf pain TECHNIQUE: 2 views of the tibia and fibula were acquired. COMPARISON: None. FINDINGS: Bones: No fractures or dislocations. No suspicious bony lesions. Soft tissues: No suspicious soft tissue calcifications or masses. IMPRESSION: Prior medullary leticia fixation to the tibia, no operative complications. Normal alignment. Dictated by: Dwayne Hernandez M.D. on 03/31/2019 at 18:52 Approved by: Dwayne Hernandez M.D. on 03/31/2019 at 18:53 Venous US: Radiologist's impression: [address] [address] Ultrasound Report Signed Patient: Pauly Baer KMR#: [id number] : 1970Acct:[id number] Age/Sex: 48 / FDate of Service: 03/31/19 Loc: ED Accession Number: [id number] Procedure: US periph venous low extrem rt Ordering Provider: Shlomo Li D.O. PROCEDURE: US PERIPH VENOUS LOW EXTREM RT INDICATIONS: EDEMA POST LEG FRACTURE TECHNIQUE: Real-time imaging, as well as color and pulse Doppler interrogation, were performed of the lower extremity deep veins from the inguinal ligament to the popliteal fossa. COMPARISON: None. FINDINGS: The common femoral, femoral and popliteal veins are normally compressible, and free of intraluminal thrombus. Color and pulse Doppler demonstrate normal phasic intraluminal flow. There is normal augmentation response to distal compression maneuver. IMPRESSION: No DVT found. Dictated by: Dwayne Hernandez M.D. on 03/31/2019 at 19:26 Approved by: Dwayne Hernandez M.D. on 03/31/2019 at 19:26 [facility] Narrative Medical decision making narrative: Patient is neurovascularly intact. We were able to remove the cast without any complications. She did report some relief after doing this. Ultrasound shows no signs of a blood clot. X-rays appear well. The patient was placed back in the bivalved cast and covered with an Ravin bandage she was instructed to continue all of her postoperative instructions. She was again informed that the cast could not be removed. Was informed that she needs follow-up with orthopedic provider to have a new cast placed. She expressed understanding and agreement plan. Discharge Plan Departure Patient Disposition: Home Clinical Impression: Post-operative pain Discharge Date/Time: 03/31/19 19:46 Instructions: How to Use Crutches Activity Restrictions/Additional Instructions: The cast needs to stay on. Just because it is wrapped with an Ravin bandage does not mean that it can be taken off. Continue to use the crutches and follow all of the postoperative instructions given to you by your orthopedic provider. On Wednesday contact your orthopedic surgeon in order to schedule appointment to have a new cast placed. Return to the emergency department for any new or worsening symptoms. Prescriptions: No Action lidocaine 5 % adhesive patch,medicated 1 patch TOP DAILY Qty: 15 RF: 1 meloxicam 15 mg tablet 15 mg PO DAILY Qty: 30 RF: 2 Hold Instructions: Home Medication placed on hold at Doctor's office aspirin 81 mg tablet,delayed release (DR/EC) 81 mg PO DAILY RF: 0 hydrocodone-acetaminophen 5-325 mg tablet 1 tab PO Q4-6H PRN (Reason: pain) Qty: 14 RF: 0 Referrals: Kenny Wilkinson MD [Primary Care Provider] -
--- NOTE | 2019-03-31 19:44 | PC.NURSE ---
Cast repadded by Dr. Irby and reapplied after US DVT r/o. Secured with large PAMELA wraps x2. CMS intact. Patient following up with Orthopedic surgeon next week for cast replacement. Verbalizes understanding of use of crutches and CMS checks.
[2019-03-31 19:45] VITALS: BP 124/72; PULSE 80; RESP 16; TEMP 36.6; O2SAT 95
== END 2019-03-31 19:46 | disposition home or self-care (01) ==
PROVIDERS: Emergency Provider Emergency Medicine; PCP Student in an Organized Health Care Education/Training Program
DX: G89.18 Other acute postprocedural pain (principal)
CPT/HCPCS: 29705; 73590; 93971; 99282; 99283

== ENCOUNTER 2020-05-16 20:41 | Emergency (ER) | payer MEDICARE, OTHER, SELFPAY ==
[2020-05-16 20:48] VITALS: BP 144/107; PULSE 98; RESP 20; TEMP 36.1; O2SAT 99
--- NOTE | 2020-05-16 22:17 | ED.DENTAL ---
HPI - Dental/Oral General Chief complaint: Dental/Oral Stated complaint: headache, jaw pain, spasms Time Seen by Provider: 05/16/20 20:41 Source: patient Mode of arrival: Ambulatory Limitations: no limitations History of Present Illness HPI Narrative: 49-year-old female smoker with history of severe temporomandibular joint dysfunction presents with her in the chief complaint of ongoing pain in her jaw. She had an episode of an accidental, and brief jaw dislocation in the fall and in the aftermath required TMJ injections. She has been in touch with specialist at the [facility] and has been told he needs a jaw or replacement. She denies any new trauma. She has had no fever or chills. She states any motion makes her symptoms worse. She denies any fever chills nor trouble swallowing. Her pain is worse when she opens or closes her mouth and improves with rest Onset (ago): month(s) Duration: intermittent Severity: severe Relieving factors: nothing Treatment prior to arrival: none Related Data Previous Rx's Medication Instructions Recorded lidocaine 5 % topical patch 1 patch TOP DAILY #15 each 01/03/19 cyclobenzaprine 10 mg PO TID PRN #14 tab 05/16/20 hydrocodone-acetaminophen 1 tab PO Q4-6H PRN #10 tab 05/16/20 ketorolac 10 mg PO Q6H PRN #14 tab 05/16/20 Allergies Allergy/AdvReac Type Severity Reaction Status Date / Time cephalexin [From KEFLEX] Allergy Severe DRY HEAVES Verified 05/22/19 16:54 adhesive tape AdvReac Mild Rash Verified 05/22/19 16:54 Review of Systems Constitutional Constitutional: Denies chills, Denies fatigue, Denies fever(s), Denies frequent falls, Denies lethargy and Denies weakness Eyes Eyes: Denies change in vision, Denies eye discharge, Denies irritation and Denies loss of vision ENT Ears, Nose, Mouth, and Throat: Denies change in voice, Denies dizziness, Denies neck pain, Denies sore throat and Denies throat swelling Comments: TMJ pain Cardiovascular Cardiovascular: Denies chest pain, Denies irregular heart rhythm, Denies lightheadedness, Denies palpitations, Denies dyspnea, Denies dyspnea on exertion and Denies orthopnea Respiratory Respiratory: Denies cough, Denies dyspnea, Denies dyspnea on exertion and Denies wheezing Gastrointestinal Gastrointestinal: Denies abdominal pain, Denies change in bowel habits, Denies diarrhea, Denies nausea and Denies vomiting Musculoskeletal Musculoskeletal: Denies neck pain and Denies numbness Integumentary/Breasts Skin/Breast: Denies pruritus, Denies erythema, Denies rash and Denies wounds Neurologic Neurologic: Denies behavioral changes, Denies confusion, Denies dizziness, Denies frequent falls, Denies loss of vision, Denies numbness and Denies weakness Psychiatric Psychiatric: Denies anxiety, Denies behavioral changes, Denies confusion, Denies depression, Denies homicidal ideation and Denies suicidal ideation Endocrine Endocrine: Denies fatigue, Denies flushing and Denies palpitations Hematologic/Lymphatic Hematologic/Lymphatic: Denies easy bruising Allergic/Immunologic Allergic/Immunologic: Denies urticaria, Denies throat swelling and Denies wheezing Patient History Medical History DDD (degenerative disc disease) GERD (gastroesophageal reflux disease) Greater trochanteric bursitis of right hip Hiatal hernia Interstitial cystitis Ovarian cyst Tibia/fibula fracture Surgical History History of breast biopsy History of hysterectomy History of surgical removal of nipple History of tonsillectomy S/P bilateral salpingo-oophorectomy (09/09/18) S/P laparoscopic procedure (09/09/18) Status post epidural steroid injection Family History Family/Other Family history not known due to adoption Social History household members: spouse Smoking Status: Former smoker alcohol intake: never substance use type: does not use additional social history: Adopted Smoking Status: Former smoker alcohol intake frequency: a few times a month Substance Use Type: marijuana Exam Narrative Exam Narrative: GEN: AOx3 and in mild distress EYES: Pupils are equal, round, and reactive to light and accommodation. Extraoccular muscles are intact bilaterally. There is no subconjunctival hemorrhage or exudate. ENT: pain with palpation of L TMJ. No malocclusion. NO facial swelling or deformity. No obvious dental abscess or other abnormality CHEST: Lungs are clear to auscultation bilaterally and free of wheezes, rales, or rhonchi. Heart rate is regular rhythm, there are no murmurs, clicks, rubs, or gallops. There is no chest wall tenderness. ABD: Abdomen is soft and nontender. There is no guarding or rebound. Bowel sounds are normal in all 4 quadrants. There is no mass or organomegaly. EXT: Full painless ROM of all extremities with no loss of sensation or strength. SKIN: Warm, pink, and dry. No erythema or rash Initial Vital Signs Initial Vital Signs: Vital Signs Temperature 97 F L 05/16/20 20:48 Pulse Rate 98 H 05/16/20 20:48 Respiratory Rate 20 05/16/20 20:48 Blood Pressure 144/107 H 05/16/20 20:48 Pulse Oximetry 99 05/16/20 20:48 Course Orders Ordered: Discontinued Medications Hydrocodone Bitart/Acetaminophen (Hydrocodone/Acet 5/325 Prepack) 1 bottle MISC SEEINSTR ONE Stop: 05/16/20 22:24 Last Admin: 05/16/20 22:27 Dose: 1 bottle Documented by: CHEPE Cyclobenzaprine HCl (Cyclobenzaprine 10 Mg Prepack) 1 bottle MISC SEEINSTR ONE Stop: 05/16/20 22:24 Last Admin: 05/16/20 22:27 Dose: 1 bottle Documented by: CHEPE Ketorolac Tromethamine (Ketorolac 60 Mg/2 Ml Vial) 60 mg IM NOW ONE Stop: 05/16/20 22:24 Last Admin: 05/16/20 22:27 Dose: 60 mg Documented by: CHEPE Vital Signs Vital signs: Vital Signs - 8 hr 05/16/20 22:34 Pulse Rate 75 Respiratory Rate 17 Blood Pressure 148/77 H Pulse Oximetry 97 Discharge Plan Departure Patient Disposition: Home Clinical Impression: Chronic jaw pain Instructions: DI for Temporomandibular Disorder Activity Restrictions/Additional Instructions: *You have been diagnosed with [chronic TMJ pain] *What to do: *Take medications as directed: Prescriptions sent to [facility] in [place] *Follow up with your primary care provider in 2-3 days, call for an appointment. Let them know you were seen in the Emergency Department and that we ask that you be seen in follow up *Return to ER if you should have any new, worsening or concerning symptoms Prescriptions: New cyclobenzaprine 10 mg tablet 10 mg PO TID PRN (Reason: muscle spasm) Qty: 14 RF: 0 hydrocodone-acetaminophen 5-325 mg tablet 1 tab PO Q4-6H PRN (Reason: pain) Qty: 10 RF: 0 ketorolac 10 mg tablet 10 mg PO Q6H PRN (Reason: pain) Qty: 14 RF: 0 No Action lidocaine 5 % adhesive patch,medicated 1 patch TOP DAILY Qty: 15 RF: 1 Referrals: Kenny Wilkinson MD [Primary Care Provider] - Bill Doll DMD [Physician] - Stand Alone Forms: Work Release Note
--- NOTE | 2020-05-16 22:26 | PC.NURSE ---
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 has received steroid injection in left jaw. states Pain had increased over the past couple of days.
[2020-05-16] MEDS: HYDROCODONE/ACET 5/325 PREPACK 1 BOTTLE MISC (22:27)
[2020-05-16] MEDS: CYCLOBENZAPRINE 10 MG PREPACK 1 BOTTLE MISC (22:27)
[2020-05-16] MEDS: KETOROLAC 60 MG/2 ML VIAL IM (22:27)
[2020-05-16 22:34] VITALS: BP 148/77; PULSE 75; RESP 17; O2SAT 97
== END 2020-05-16 22:36 | disposition home or self-care (01) ==
PROVIDERS: Emergency Provider Emergency Medicine; PCP Student in an Organized Health Care Education/Training Program
DX: M26.629 Arthralgia of temporomandibular joint, unspecified side (principal)
CPT/HCPCS: 96372; 99281; 99283; J1885

== ENCOUNTER → 2020-08-07 12:14 | Outpatient (CLI) | payer MEDICARE, OTHER, SELFPAY ==
[2020-08-07] MEDS: COVID-19 VACC #1, MRNA(MOD) 100 MCG/0.5 ML VIAL IM (12:17)
== END ==
PROVIDERS: PCP Student in an Organized Health Care Education/Training Program; Visit Provider Internal Medicine
DX: Z23 Encounter for immunization (principal)
CPT/HCPCS: 0011A; 91301

== ENCOUNTER 2020-08-13 11:32 | Emergency (ER) | payer MEDICARE, OTHER, SELFPAY ==
[2020-08-13 11:37] VITALS: BP 139/77
[2020-08-13 11:38] VITALS: BP 139/77; PULSE 73; PULSE 74; RESP 16; TEMP 36.8; O2SAT 96; O2SAT 97; BMI 19.5
--- NOTE | 2020-08-13 11:44 | DI.RAD.S_ITS ---
PROCEDURE: XR CHEST 2V INDICATIONS: coughing up blood TECHNIQUE: 2 views of the chest were acquired. COMPARISON: [facility], , XR CXR 2 VIEW, 08/27/2003, 8:14. FINDINGS: Surgical changes and devices: A thoracic spine stimulator can be seen. Lungs and pleura: Lungs are clear. No pleural effusions or pneumothorax. Mediastinum: Mediastinal contours are normal. Heart size is normal. Bones and chest wall: No suspicious bony abnormalities. Mild pectus excavatum deformity can be seen. Soft tissues appear unremarkable. IMPRESSION: Clear lungs. For this patient's presenting history of hemoptysis, please consider a dedicated chest CT with contrast for further evaluation. Incidental note is made of: Pectus excavatum deformity Thoracic spine stimulator Dictated by: Ang Duran M.D. on 08/13/2020 at 11:10 Approved by: Ang Duran M.D. on 08/13/2020 at 11:11
--- NOTE | 2020-08-13 12:42 | ED.GENADULT ---
HPI - General Adult General Chief complaint: Upper Respiratory Symptoms Stated complaint: coughing up blood Time Seen by Provider: 08/13/20 12:23 Source: patient Mode of arrival: Ambulatory Limitations: no limitations History of Present Illness HPI narrative: This is a 50-year-old female comes emergency department with complaint of hemoptysis. Patient states she has had a cough for about a week. She coughed very small amount of blood today. She has not had any additional. She denies fevers, no chills. She denies any chest pain. No shortness of breath. She has had otherwise nonproductive cough. She has not had any GI issues recently other than some diarrhea on the . Patient states she has had unintended weight loss of 15 lb over the last couple months. She does smoke tobacco. She has noted that she has had some increased lower back pain in the area of her spinal stimulator which was placed approximately a year ago. Patient also had a little bit of abdominal discomfort. She has not appreciated any urinary symptoms. She has not had any new swelling in her extremities. She states her only other surgeries are for a compound fracture in her right lower extremity which she had surgical fixation. She is on a muscle relaxer for TMJ, likely tinazidine. She denies other regular medications. Occasional THC use socially. Dr. Wilkinson is her PCP. Related Data Home Medications Medication Instructions Recorded Confirmed tizanidine 4 mg tablet 4 mg PO BID PRN 05/28/20 05/28/20 Previous Rx's Medication Instructions Recorded lidocaine 5 % topical patch 1 patch TOP DAILY #15 each 01/03/19 cyclobenzaprine 10 mg PO TID PRN #14 tab 05/16/20 ketorolac 10 mg PO Q6H PRN #14 tab 05/16/20 hydrocodone 5 mg-acetaminophen 325 1 tab PO DAILY PRN #30 tab 05/28/20 mg tablet Allergies Allergy/AdvReac Type Severity Reaction Status Date / Time cephalexin [From KEFLEX] Allergy Severe DRY HEAVES Verified 05/22/19 16:54 adhesive tape AdvReac Mild Rash Verified 05/22/19 16:54 Review of Systems Review of Systems ROS Unobtainable: All systems reviewed & are unremarkable except as noted in HPI and below Patient History Medical History (Updated 08/13/20 @ 15:50 by Rachel Schroeder DO) DDD (degenerative disc disease) GERD (gastroesophageal reflux disease) Greater trochanteric bursitis of right hip Hiatal hernia Interstitial cystitis Ovarian cyst Tibia/fibula fracture Surgical History History of breast biopsy History of hysterectomy History of surgical removal of nipple History of tonsillectomy S/P bilateral salpingo-oophorectomy (09/09/18) S/P laparoscopic procedure (09/09/18) Status post epidural steroid injection Family History Family/Other Family history not known due to adoption Social History household members: spouse Smoking Status: Former smoker alcohol intake: never substance use type: does not use additional social history: Adopted Smoking Status: Former smoker alcohol intake frequency: a few times a month Substance Use Type: marijuana Exam Narrative Exam Narrative: GENERAL: Alert and oriented x three, thin female in mild distress. HEENT: Head normocephalic, atraumatic, EOMI, pupils reactive, face symmetric, moist mucous membranes NECK: Supple, full range of motion CARDIOVASCULAR: Regular rate and rhythm without murmurs, rubs or gallops. No swelling lower extremities. RESPIRATORY: Breath sounds equal bilaterally, no wheezes rales or rhonchi. No tachypnea. No accessory muscle use. ABDOMEN: Soft, nontender. Normoactive bowel sounds all 4 quadrants. No guarding or rebound, rigidity, no mass : No CVA tenderness EXTREMITIES: Normal range of motion, no clubbing or edema. Neurovascularly intact NEUROLOGICAL: Cranial nerves II through XII grossly intact. Moving all extremities SKIN: Warm, dry, no petechiae, no rashes or lesions. Initial Vital Signs Initial Vital Signs: Vital Signs Blood Pressure 139/77 08/13/20 11:37 Course Orders Ordered: ED Orders 08/13/20 11:44 XR chest 2V Stat 08/13/20 11:45 Urine Culture Stat Urine Microscopic Stat 08/13/20 12:49 Complete Blood Count AUTO DIFF Stat Comprehensive Metabolic Panel Stat D Dimer Stat Lactate (Lactic Acid) Stat Lipase Stat Magnesium Stat Partial Thromboplastin Time Stat Prothrombin Time INR Stat Troponin & CK Cardiac Panel Stat Type and Screen Stat 08/13/20 12:50 CT abdomen pelvis w con Stat 08/13/20 13:11 EKG-12 Lead Stat 08/13/20 14:09 CT angio chest PE protocol Stat Vital Signs Vital signs: Vital Signs - 8 hr 08/13/20 14:00 08/13/20 16:01 Pulse Rate 76 80 Respiratory Rate 16 18 Blood Pressure 126/78 134/78 Pulse Oximetry 97 96 Medical Decision Making Lab Data Lab results reviewed: Yes I reviewed the patient's lab results. Result diagrams: 08/13/20 12:49 08/13/20 12:49 Labs: Lab Results 08/13/20 08/13/20 08/13/20 Range/Units 11:45 12:49 12:49 WBC 5.4 (4.5-11.0) X10^3/uL RBC 4.46 (4.0-5.2) X10^6/uL Hgb 13.7 (12.0-16.0) g/dL Hct 40.0 (36-46) % MCV 89.7 (80-100) fL MCH 30.7 (26-34) PG MCHC 34.2 (30-36) % RDW 12.7 (11.6-14.8) % Plt Count 256 (150-400) X10^3/uL Neut % (Auto) 53.2 (50-75) % Lymph % (Auto) 40.0 (25-40) % [place] % (Auto) 4.9 (3-14) % Eos % (Auto) 0.7 L (2-4) % Baso % (Auto) 1.2 (0-2) % Neut # (Auto) 2900 (2297-2824) /uL Lymph # (Auto) 2200 (1865-7453) /uL [place] # (Auto) 300 (0-900) /uL Eos # (Auto) 0 (0-450) /uL Baso # (Auto) 100 (0-100) /uL PT 12.3 (10.1-12.7) SECONDS INR 1.1 (0.9-1.3) APTT 33 (26.4-36.2) SECONDS D-Dimer < 200 (<230) ng/mL Sodium (137-145) mmol/L Potassium (3.4-5.1) mmol/L Chloride (98-107) mmol/L Carbon Dioxide (22-32) mmol/L BUN (7-17) mg/dL Creatinine (0.52-1.04) mg/dL Estimated GFR (>60) mL/min BUN/Creatinine Ratio (6-22) Glucose (70-100) mg/dL Lactate (0.7-2.1) mmol/L Calcium (8.4-10.2) mg/dL Magnesium (1.6-2.3) mg/dL Total Bilirubin (0.2-1.3) mg/dL AST (14-36) IU/L ALT (<35) IU/L Alkaline Phosphatase (38-126) U/L Total Creatine Kinase (30-135) U/L CK-MB (CK-2) CK-MB (CK-2) Rel Index Troponin I (0.01-0.034) ng/mL Total Protein (6.3-8.2) g/dL Albumin (3.5-5.0) g/dL Globulin (1.7-4.1) g/dL Albumin/Globulin Ratio (1.0-2.8) Lipase (23-300) U/L Urine RBC 1-5/hpf (0-5/HPF) Urine WBC 1-5/hpf (0-5/HPF) Ur Squamous Epith Cells 1-5 /hpf (0-5/HPF) Amorphous Sediment 1+ Urine Bacteria Moderate (10-30) H (None) Ur Culture Indicated? Specimen cultured Blood Type Antibody Screen 08/13/20 08/13/20 08/13/20 Range/Units 12:49 12:49 12:49 WBC (4.5-11.0) X10^3/uL RBC (4.0-5.2) X10^6/uL Hgb (12.0-16.0) g/dL Hct (36-46) % MCV (80-100) fL MCH (26-34) PG MCHC (30-36) % RDW (11.6-14.8) % Plt Count (150-400) X10^3/uL Neut % (Auto) (50-75) % Lymph % (Auto) (25-40) % [place] % (Auto) (3-14) % Eos % (Auto) (2-4) % Baso % (Auto) (0-2) % Neut # (Auto) (0351-7189) /uL Lymph # (Auto) (6922-0314) /uL [place] # (Auto) (0-900) /uL Eos # (Auto) (0-450) /uL Baso # (Auto) (0-100) /uL PT (10.1-12.7) SECONDS INR (0.9-1.3) APTT (26.4-36.2) SECONDS D-Dimer (<230) ng/mL Sodium 141 Cancelled (137-145) mmol/L Potassium 4.8 Cancelled (3.4-5.1) mmol/L Chloride 106 Cancelled (98-107) mmol/L Carbon Dioxide 28 Cancelled (22-32) mmol/L BUN 10 Cancelled (7-17) mg/dL Creatinine 0.66 Cancelled (0.52-1.04) mg/dL Estimated GFR > 60.0 Cancelled (>60) mL/min BUN/Creatinine Ratio 15.2 Cancelled (6-22) Glucose 92 Cancelled (70-100) mg/dL Lactate 1.2 (0.7-2.1) mmol/L Calcium 10.0 Cancelled (8.4-10.2) mg/dL Magnesium 2.2 (1.6-2.3) mg/dL Total Bilirubin 0.3 Cancelled (0.2-1.3) mg/dL AST 21 Cancelled (14-36) IU/L ALT 12 Cancelled (<35) IU/L Alkaline Phosphatase 79 Cancelled (38-126) U/L Total Creatine Kinase 32 (30-135) U/L CK-MB (CK-2) TNP CK-MB (CK-2) Rel Index TNP Troponin I < 0.012 (0.01-0.034) ng/mL Total Protein 7.0 Cancelled (6.3-8.2) g/dL Albumin 4.4 Cancelled (3.5-5.0) g/dL Globulin 2.6 Cancelled (1.7-4.1) g/dL Albumin/Globulin Ratio 1.7 Cancelled (1.0-2.8) Lipase 79 (23-300) U/L Urine RBC (0-5/HPF) Urine WBC (0-5/HPF) Ur Squamous Epith Cells (0-5/HPF) Amorphous Sediment Urine Bacteria (None) Ur Culture Indicated? Blood Type Antibody Screen 08/13/20 Range/Units 12:49 WBC (4.5-11.0) X10^3/uL RBC (4.0-5.2) X10^6/uL Hgb (12.0-16.0) g/dL Hct (36-46) % MCV (80-100) fL MCH (26-34) PG MCHC (30-36) % RDW (11.6-14.8) % Plt Count (150-400) X10^3/uL Neut % (Auto) (50-75) % Lymph % (Auto) (25-40) % [place] % (Auto) (3-14) % Eos % (Auto) (2-4) % Baso % (Auto) (0-2) % Neut # (Auto) (3922-2756) /uL Lymph # (Auto) (5881-9515) /uL [place] # (Auto) (0-900) /uL Eos # (Auto) (0-450) /uL Baso # (Auto) (0-100) /uL PT (10.1-12.7) SECONDS INR (0.9-1.3) APTT (26.4-36.2) SECONDS D-Dimer (<230) ng/mL Sodium (137-145) mmol/L Potassium (3.4-5.1) mmol/L Chloride (98-107) mmol/L Carbon Dioxide (22-32) mmol/L BUN (7-17) mg/dL Creatinine (0.52-1.04) mg/dL Estimated GFR (>60) mL/min BUN/Creatinine Ratio (6-22) Glucose (70-100) mg/dL Lactate (0.7-2.1) mmol/L Calcium (8.4-10.2) mg/dL Magnesium (1.6-2.3) mg/dL Total Bilirubin (0.2-1.3) mg/dL AST (14-36) IU/L ALT (<35) IU/L Alkaline Phosphatase (38-126) U/L Total Creatine Kinase (30-135) U/L CK-MB (CK-2) CK-MB (CK-2) Rel Index Troponin I (0.01-0.034) ng/mL Total Protein (6.3-8.2) g/dL Albumin (3.5-5.0) g/dL Globulin (1.7-4.1) g/dL Albumin/Globulin Ratio (1.0-2.8) Lipase (23-300) U/L Urine RBC (0-5/HPF) Urine WBC (0-5/HPF) Ur Squamous Epith Cells (0-5/HPF) Amorphous Sediment Urine Bacteria (None) Ur Culture Indicated? Blood Type B Positive Antibody Screen Negative Urine Dip Bedside Urine Glucose Negative Bedside Urine Bilirubin - Negative Bedside Urine Ketone - Negative Urine Specific [place] 1.010 Bedside Urine Occult Blood ++ Bedside Urine pH 6.0 Bedside Urine Protein - Negative Bedside Urine Urobilinogen - Negative Bedside Urine Nitrite - Negative Bedside Urine Leukocytes - Negative Esterase Point of care testing: Urine Dip Bedside Urine Glucose Negative Bedside Urine Bilirubin - Negative Bedside Urine Ketone - Negative Urine Specific [place] 1.010 Bedside Urine Occult Blood ++ Bedside Urine pH 6.0 Bedside Urine Protein - Negative Bedside Urine Urobilinogen - Negative Bedside Urine Nitrite - Negative Bedside Urine Leukocytes - Negative Esterase Imaging Data Chest x-ray: Radiologist's Impression: [address] [id number] ReportSigned Patient: Pauly Baer KMR#: [id number]: 1970Acct:[id number]/Sex: 50 / FDate of Service: 08/13/20Loc: EDAccession Number: [id number] Procedure: XR chest 2V Ordering Provider: Rachel Schroeder D.O. PROCEDURE: XR CHEST 2V INDICATIONS: coughing up blood TECHNIQUE: 2 views of the chest were acquired. COMPARISON: [facility], XR CXR 2 VIEW, 08/27/2003, 8:14. FINDINGS: Surgical changes and devices: A thoracic spine stimulator can be seen. Lungs and pleura: Lungs are clear. No pleural effusions or pneumothorax. Mediastinum: Mediastinal contours are normal. Heart size is normal. Bones and chest wall: No suspicious bony abnormalities. Mild pectus excavatum deformity can be seen. Soft tissues appear unremarkable. IMPRESSION: Clear lungs. For this patient's presenting history of hemoptysis, please consider a dedicated chest CT with contrast for further evaluation. Incidental note is made of: Pectus excavatum deformity Thoracic spine stimulator Dictated by: Ang Duran M.D. on 08/13/2020 at 11:10 Approved by: Ang Duran M.D. on 08/13/2020 at 11:11 CT scan - chest: Radiologist's Impression: [address] [id number] Scan ReportSigned Patient: Pauly Baer KMR#: [id number]: 1970Acct:[id number]/Sex: 50 / FDate of Service: 08/13/20Loc: EDAccession Number: [id number] Procedure: CT angio chest PE protocol Ordering Provider: Rachel Schroeder D.O. PROCEDURE: CT ANGIO CHEST PE PROTOCOL INDICATIONS: hemoptysis, weight loss, tob use. TECHNIQUE: After the administration of intravenous contrast, 2 mm thick sections acquired from the pulmonary apices to the posterior costophrenic angles. 3-dimensional maximum intensity projection (MIP) coronal and sagittal reformats were then acquired through the thorax. For radiation dose reduction, the following was used: automated exposure control, adjustment of mA and/or kV according to patient size. COMPARISON: None. FINDINGS: Image quality: Excellent. Pulmonary arteries: Pulmonary arteries are normal in size, and demonstrate no intraluminal filling defects to suggest central pulmonary embolism. Lungs and pleura: There are mild upper lobe centrilobular emphysematous changes. Calcified and noncalcified solid nodules are present in the right upper lobe (5/142 and 156), right middle lobe (5/256), right lower lobe (5/141), left upper lobe (5/113) ranging in size from 2 mm to 5 mm. Vertical posterior scarring is present at both lung bases. No acute consolidations. No pleural effusions or pneumothorax. Central and peripheral airways are patent. Mediastinum: Heart size is normal, without pericardial effusion. No mediastinal or hilar adenopathy. Thoracic aorta is normal in caliber and enhancement. Esophagus is normal in caliber, without hiatal hernia. Bones and chest wall: No suspicious bony lesions. Ribs and thoracic spine appear intact throughout. There is an epidural nerve stimulator in place projecting over the midthoracic spine. Thyroid gland is normal. No axillary or supraclavicular adenopathy. Abdomen: Visualized upper abdominal solid organs appear normal in the early arterial phase of enhancement. IMPRESSION: 1. No pulmonary embolus. 2. Mild emphysema. 3. Several small bilateral lung nodules as described. Six-month follow-up chest CT to document stability is recommended. Dictated by: Nirali Ivey M.D. on 08/13/2020 at 13:09 Approved by: Nirali Ivey M.D. on 08/13/2020 at 13:55 CT scan - abdomen/pelvis: Radiologist's Impression: Pauly Baer 50 F [address] [id number] Scan ReportSigned Patient: Pauly Baer KMR#: [id number]: 1970Acct:[id number]/Sex: 50 / FDate of Service: 08/13/20Loc: EDAccession Number: [id number] Procedure: CT abdomen pelvis w con Ordering Provider: Rachel Schroeder D.O. PROCEDURE: CT ABDOMEN PELVIS W CON INDICATIONS: spinal stimulator increasing pain, abd pain with palp. TECHNIQUE: After the administration of intravenous contrast, 5 mm thick sections acquired from the diaphragm to the symphysis. 5 mm coronal and sagittal reformats were acquired. For radiation dose reduction, the following was used: automated exposure control, adjustment of mA and/or kV according to patient size. COMPARISON: [facility], CT, CT ABDOMEN PELVIS W CON, 04/26/2018, 16:08. [facility], CT, ABDOMEN/PELVIS WITH CONTRAST, 04/08/2017, 16:18. FINDINGS: Image quality: Excellent. ABDOMEN: Lung bases: Lung bases are clear. Heart size is normal. Solid organs: Liver is normal in size and enhancement. Gallbladder appears normal, partially contracted. Biliary system is non dilated. Pancreas enhances normally. Spleen is normal in size and enhancement. No adrenal nodules. Kidneys demonstrate normal size and enhancement, without hydronephrosis. Peritoneum and bowel: Bowel loops demonstrate normal wall thickness and caliber. No free fluid or air. Nodes and vessels: No retroperitoneal or mesenteric adenopathy by size criteria. Aorta and inferior vena cava are normal in size. Miscellaneous: No ventral hernias. PELVIS: Genitourinary: Bladder wall thickness is normal. Miscellaneous: No inguinal hernias or adenopathy. Spinal stimulator control device and leads noted over the left paramedian buttock area near the iliac crest. Bones: No suspicious bony lesions. No vertebral body compression fractures. IMPRESSION: No inflammation or evidence of intestinal obstruction or perforation is found. A partially contracted gallbladder is identified right upper quadrant without internal stones or adjacent inflammation. A normal or abnormal appendix could not be located. No secondary CT evidence of acute appendicitis is found. Spinal stimulator control device and leads extend near the left sacrum superiorly, without evidence of operative complication or adjacent inflammation. Source of current symptoms is not found. Dictated by: Dwayne Hernandez M.D. on 08/13/2020 at 14:28 Approved by: Dwayne Hernandez M.D. on 08/13/2020 at 14:31 ECG Data Attestation: I personally reviewed and interpreted this ECG as follows: Interpretation: Sinus bradycardia rate of 58 SD interval 178 QRS 84 and QTC of 404. No acute ST elevation or depression appreciated. RSR in V1 and V2. MDM Narrative Medical decision making narrative: This is a 50-year-old female comes with complaint of hemoptysis patient had several small streaks which she brought with her. She has not had any additional episodes she has had about a week of cough. She does self described several months of unintentional weight, chronic tobacco use and low back pain radiating towards her abdomen but coming from the area of her spinal stimulator. Patient's labs were stable. CT of the chest shows multiple small pulmonary nodules and patient should have follow-up with her recent history that she described at 6 months for imaging but also more urgent follow up with PCP. She is recommended to stop smoking. CT of her abdomen pelvis does not show any new or concerning changes recommended to follow up regarding her spinal stimulator. Patient states she has follow up with Dr. Wilkinson on the and will discuss todays findings. Discharge Plan Departure Patient Disposition: Home Clinical Impression: Hemoptysis, Lung nodules Instructions: DI for Pulmonary Nodule Activity Restrictions/Additional Instructions: Follow up with your physician this week for recheck. Discuss your symptoms and findings today with your physician. Your CT imaging today shows several small bilateral lung nodules ranging from 2-5mm in size. CT of chest is recommended in 6 months to demonstrate follow up. It is also noted that you have emphysematous changes consistent with tobacco abuse. It is recommended that you attempt to stop smoking, there are multiple options that can be offered by your primary care to help with this. You may continue your home medications as prescribed. Please return for fevers, new or worsening chest pain, shortness of breath, if you are persistently coughing up blood or coughing up more than a small streak blood, lightheadedness or passing out, persistent vomiting, black or bloody stools or other signs spontaneous bleeding or spontaneous bruising or any other new or concerning symptoms Prescriptions: No Action lidocaine 5 % adhesive patch,medicated 1 patch TOP DAILY Qty: 15 RF: 1 tizanidine 4 mg tablet 4 mg PO BID PRNRF: 0 hydrocodone-acetaminophen 5-325 mg tablet 1 tab PO DAILY PRN (Reason: pain) Qty: 30 RF: 0 cyclobenzaprine 10 mg tablet 10 mg PO TID PRN (Reason: muscle spasm) Qty: 14 RF: 0 ketorolac 10 mg tablet 10 mg PO Q6H PRN (Reason: pain) Qty: 14 RF: 0 Referrals: Kenny Wilkinson MD [Primary Care Provider] -
--- NOTE | 2020-08-13 12:50 | DI.CT.S_ITS ---
PROCEDURE: CT ABDOMEN PELVIS W CON INDICATIONS: spinal stimulator increasing pain, abd pain with palp. TECHNIQUE: After the administration of intravenous contrast, 5 mm thick sections acquired from the diaphragm to the symphysis. 5 mm coronal and sagittal reformats were acquired. For radiation dose reduction, the following was used: automated exposure control, adjustment of mA and/or kV according to patient size. COMPARISON: [facility], CT, CT ABDOMEN PELVIS W CON, 04/26/2018, 16:08. [facility], CT, ABDOMEN/PELVIS WITH CONTRAST, 04/08/2017, 16:18. FINDINGS: Image quality: Excellent. ABDOMEN: Lung bases: Lung bases are clear. Heart size is normal. Solid organs: Liver is normal in size and enhancement. Gallbladder appears normal, partially contracted. Biliary system is non dilated. Pancreas enhances normally. Spleen is normal in size and enhancement. No adrenal nodules. Kidneys demonstrate normal size and enhancement, without hydronephrosis. Peritoneum and bowel: Bowel loops demonstrate normal wall thickness and caliber. No free fluid or air. Nodes and vessels: No retroperitoneal or mesenteric adenopathy by size criteria. Aorta and inferior vena cava are normal in size. Miscellaneous: No ventral hernias. PELVIS: Genitourinary: Bladder wall thickness is normal. Miscellaneous: No inguinal hernias or adenopathy. Spinal stimulator control device and leads noted over the left paramedian buttock area near the iliac crest. Bones: No suspicious bony lesions. No vertebral body compression fractures. IMPRESSION: No inflammation or evidence of intestinal obstruction or perforation is found. A partially contracted gallbladder is identified right upper quadrant without internal stones or adjacent inflammation. A normal or abnormal appendix could not be located. No secondary CT evidence of acute appendicitis is found. Spinal stimulator control device and leads extend near the left sacrum superiorly, without evidence of operative complication or adjacent inflammation. Source of current symptoms is not found. Dictated by: Dwayne Hernandez M.D. on 08/13/2020 at 14:28 Approved by: Dwayne Hernandez M.D. on 08/13/2020 at 14:31
[2020-08-13 12:57] LABS: Add Manual Diff / Slide Review NO; Basophils Absolute Auto 100 /uL (0-100); Basophils Percent Auto 1.2 % (0-2); Eosinophils Absolute Auto 0 /uL (0-450); Eosinophils Percent Auto 0.7 % (2-4); Hemoglobin 13.7 g/dL (12.0-16.0); Lymphocytes Absolute Auto 2200 /uL (1100-4500); Mean Corpuscular HGB Conc 34.2 % (30-36); Mean Corpuscular Hemoglobin 30.7 PG (26-34); Mean Corpuscular Volume 89.7 fL (80-100); Monocytes Absolute Auto 300 /uL (0-900); Monocytes Percent Auto 4.9 % (3-14); Neutrophils Absolute Auto 2900 /uL (1500-7000); Neutrophils Percent Auto 53.2 % (50-75); Platelet Count 256 X10^3/uL (150-400); Red Blood Cell Count 4.46 X10^6/uL (4.0-5.2); Red Cell Distribution Width 12.7 % (11.6-14.8); White Blood Cell Count 5.4 X10^3/uL (4.5-11.0)
[2020-08-13 13:13] LABS: Amorphous Sediment Urine 1+; Bacteria Urine Moderate (10-30); Culture Indicated Urine Specimen Cultured; RBC Urine 1-5/HPF (0-5/HPF); Squamous Epithelial Cell Urine 1-5 /HPF (0-5/HPF); WBC Urine 1-5/HPF (0-5/HPF)
[2020-08-13 13:14] LABS: Lactate (Lactic Acid) 1.2 mmol/L (0.7-2.1)
[2020-08-13 13:15] LABS: Alanine Aminotransferase 12 IU/L (<35); Albumin 4.4 g/dL (3.5-5.0); Albumin Globulin Ratio 1.7 (1.0-2.8); Alkaline Phosphatase 79 U/L (38-126); Aspartate Aminotransferase 21 IU/L (14-36); BUN Creatinine Ratio 15.2 (6-22); Bilirubin Total 0.3 mg/dL (0.2-1.3); Blood Urea Nitrogen 10 mg/dL (7-17); Carbon Dioxide 28 mmol/L (22-32); Chloride 106 mmol/L (98-107); Creatine Kinase 32 U/L (30-135); Estimated Glomerular Filt Rate > 60.0 mL/min (>60); Globulin 2.6 g/dL (1.7-4.1); Glucose 92 mg/dL (70-100); HEMOLYSIS < 15 (0-50); Lipase 79 U/L (23-300); Magnesium 2.2 mg/dL (1.6-2.3); Potassium 4.8 mmol/L (3.4-5.1); Sodium 141 mmol/L (137-145)
[2020-08-13 13:26] LABS: Troponin I < 0.012 ng/mL (0.01-0.034)
[2020-08-13 13:31] LABS: INR 1.1 (0.9-1.3); Prothrombin Time 12.3 SECONDS (10.1-12.7)
[2020-08-13 13:33] LABS: PTT Partial Thromboplastin Tim 33 SECONDS (26.4-36.2)
[2020-08-13 13:37] LABS: D Dimer < 200 ng/mL (<230)
[2020-08-13 14:00] VITALS: BP 126/78; PULSE 76; RESP 16; O2SAT 97
--- NOTE | 2020-08-13 14:09 | DI.CT.S_ITS ---
PROCEDURE: CT ANGIO CHEST PE PROTOCOL INDICATIONS: hemoptysis, weight loss, tob use. TECHNIQUE: After the administration of intravenous contrast, 2 mm thick sections acquired from the pulmonary apices to the posterior costophrenic angles. 3-dimensional maximum intensity projection (MIP) coronal and sagittal reformats were then acquired through the thorax. For radiation dose reduction, the following was used: automated exposure control, adjustment of mA and/or kV according to patient size. COMPARISON: None. FINDINGS: Image quality: Excellent. Pulmonary arteries: Pulmonary arteries are normal in size, and demonstrate no intraluminal filling defects to suggest central pulmonary embolism. Lungs and pleura: There are mild upper lobe centrilobular emphysematous changes. Calcified and noncalcified solid nodules are present in the right upper lobe (5/142 and 156), right middle lobe (5/256), right lower lobe (5/141), left upper lobe (5/113) ranging in size from 2 mm to 5 mm. Vertical posterior scarring is present at both lung bases. No acute consolidations. No pleural effusions or pneumothorax. Central and peripheral airways are patent. Mediastinum: Heart size is normal, without pericardial effusion. No mediastinal or hilar adenopathy. Thoracic aorta is normal in caliber and enhancement. Esophagus is normal in caliber, without hiatal hernia. Bones and chest wall: No suspicious bony lesions. Ribs and thoracic spine appear intact throughout. There is an epidural nerve stimulator in place projecting over the midthoracic spine. Thyroid gland is normal. No axillary or supraclavicular adenopathy. Abdomen: Visualized upper abdominal solid organs appear normal in the early arterial phase of enhancement. IMPRESSION: 1. No pulmonary embolus. 2. Mild emphysema. 3. Several small bilateral lung nodules as described. Six-month follow-up chest CT to document stability is recommended. Dictated by: Nirali Ivey M.D. on 08/13/2020 at 13:09 Approved by: Nirali Ivey M.D. on 08/13/2020 at 13:55
[2020-08-13 16:01] VITALS: BP 134/78; PULSE 80; RESP 18; O2SAT 96
== END 2020-08-13 16:01 | disposition home or self-care (01) ==
PROVIDERS: Emergency Provider Emergency Medicine; PCP Student in an Organized Health Care Education/Training Program
DX: R04.2 Hemoptysis (principal); R91.8 Other nonspecific abnormal finding of lung field
CPT/HCPCS: 36415; 71046; 71275; 74177; 80053; 81003; 81015; 82550; 83605; 83690; 83735; 84484; 85025; 85379; 85610; 85730; 86850; 86900; 86901; 87086; 93005; 99284

== ENCOUNTER → 2020-08-22 15:03 | Outpatient (CLI) | payer MEDICARE, OTHER, SELFPAY ==
--- NOTE | 2020-08-22 15:06 | DI.RAD.S_ITS ---
PROCEDURE: XR LUMBAR SPINE 2-3V INDICATIONS: Chronic LBP TECHNIQUE: 3 views of the lumbar spine were acquired. COMPARISON: [facility], , L-SPINE 2-3 VIEWS, 04/17/2014, 18:12. FINDINGS: Bones: 5 [id number] vertebrae are present. There is normal bony alignment. No vertebral body compression fractures. No suspicious bony lesions. There is mild disc space narrowing and facet hypertrophy noted at L3-4 and L5-S1, slightly increased from the prior Soft tissues: Overlying bowel gas pattern is normal. No suspicious soft tissue calcifications. There has been interval placement of a epidural spinal stimulator with pulse generator in the left posterior paraspinal subcutaneous fat tissue. No break dislodgement noted. IMPRESSION: 1. Mild degenerative disc disease and arthropathy noted in the lower lumbar spine, slightly increased from the prior 2. Well-positioned spinal epidural stimulator. 3. No fracture or malalignment. Dictated by: Javi Woo M.D. on 08/22/2020 at 16:25 Approved by: Javi Woo M.D. on 08/22/2020 at 16:29
--- NOTE | 2020-08-22 15:06 | DI.RAD.S_ITS ---
PROCEDURE: XR SHOULDER LT MIN 2V INDICATIONS: Left shoulder crepitus TECHNIQUE: 3 views of the shoulder were acquired. COMPARISON: [facility], , SHOULDER MINIMUM 2 VIEW LEFT, 10/21/2012, 12:48. FINDINGS: Bones: No fractures or dislocations. No suspicious bony lesions. Visualized ribs appear intact. Mild glenohumeral joint space narrowing. Soft tissues: No suspicious soft tissue calcifications. No no soft tissue air. Other: Small calcified granuloma noted in the left upper lobe peripherally, stable prior IMPRESSION: Mild glenohumeral joint space narrowing, similar prior exam Dictated by: Javi Woo M.D. on 08/22/2020 at 16:19 Approved by: Javi Woo M.D. on 08/22/2020 at 16:25
[2020-08-27 23:36] LABS: QuantiFERON Mitogen Value >10.00 IU/mL (.); QuantiFERON Nil Value <0.00 IU/mL (.); QuantiFERON TB Gold Plus Negative (Negative); QuantiFERON TB1 Ag Value <0.00 IU/mL (.); QuantiFERON TB2 Ag Value <0.00 IU/mL (.)
== END ==
PROVIDERS: PCP Student in an Organized Health Care Education/Training Program; Referring Provider Student in an Organized Health Care Education/Training Program; Visit Provider Student in an Organized Health Care Education/Training Program
DX: M24.812 Other specific joint derangements of left shoulder, not elsewhere classified (principal); M54.5 Low back pain; M51.36 Other intervertebral disc degeneration, lumbar region; M51.37 Other intervertebral disc degeneration, lumbosacral region; M47.816 Spondylosis without myelopathy or radiculopathy, lumbar region; M47.817 Spondylosis without myelopathy or radiculopathy, lumbosacral region; R04.2 Hemoptysis; R63.4 Abnormal weight loss; R91.8 Other nonspecific abnormal finding of lung field; Z96.82 Presence of neurostimulator
CPT/HCPCS: 36415; 72100; 73030; 86480

== ENCOUNTER → 2020-09-04 12:01 | Outpatient (CLI) | payer MEDICARE, OTHER, SELFPAY ==
[2020-09-04] MEDS: COVID-19 VACC #2, MRNA(MOD) 100 MCG/0.5 ML VIAL IM (12:09)
== END ==
PROVIDERS: PCP Student in an Organized Health Care Education/Training Program; Visit Provider Internal Medicine
DX: Z23 Encounter for immunization (principal); R10.13 Epigastric pain; R10.32 Left lower quadrant pain; R63.4 Abnormal weight loss
CPT/HCPCS: 0012A; 91301; 99214

== ENCOUNTER → 2020-09-07 17:15 | Outpatient (CLI) | payer MEDICARE, OTHER, SELFPAY ==
[2020-09-07 18:11] LABS: COVID19 -Nasal RAPID Negative (Negative)
== END ==
PROVIDERS: PCP Student in an Organized Health Care Education/Training Program; Visit Provider Physician Assistant
DX: Z20.822 Contact with and (suspected) exposure to COVID-19 (principal)
CPT/HCPCS: 87635

== ENCOUNTER 2020-09-09 08:53 | Day surgery (SDC) | payer MEDICARE, OTHER, SELFPAY ==
[2020-09-09] VITALS (7 sets, daily range): BP systolic 110–128; BP diastolic 61–70; PULSE 59–76; RESP 9–16; TEMP 36.2–37.3; O2SAT 97–100; BMI 18.9
--- NOTE | 2020-09-09 | PATH_ITS ---
[facility] Accession Number: [id number] . 01 Material submitted: . PART A: duodenum - DUODENAL BIOPSIES PART B: stomach - STOMACH BIOPSIES PART C: COLONIC MUCOSA - COLONIC MUCOSA RANDOM BIOPSIES . 02 Diagnosis: A. Duodenum, Biopsies: Small bowel mucosa with no diagnostic abnormality. Negative for intraepithelial lymphocytosis or villous blunting. 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 Negative for granulomas, dysplasia and malignancy. . B. Stomach, Biopsies: Antral and body-type mucosa with mild chronic gastritis. Negative for Helicobacter by immunohistochemistry. Negative for intestinal metaplasia. Negative for dysplasia and malignancy. . C. Colon, Random Biopsies: Colonic mucosa with no diagnostic abnormality. Negative for active, chronic, and microscopic colitis. Negative for dysplasia and malignancy. . [facility] 09/17/2020 1407 Local . 02 Electronically signed: . Idalia Gaxiola MD, Pathologist NPI- [id number] . 01 Gross description: . A. Received in formalin, labeled duodenal and consists of two alanis fragments of soft tissue measuring 0.4 x 0.4 x 0.2 cm in aggregate. The specimen is entirely submitted in cassette A1. B. Received in formalin, labeled stomach and consists of three alanis fragments of soft tissue measuring 0.5 x 0.4 x 0.2 cm in aggregate. The specimen is entirely submitted in cassette B1. C. Received in formalin, labeled colonic mucosa random and consists of three alanis-pink fragments of soft tissue measuring 0.5 x 0.4 x 0.2 cm in aggregate. The specimen is entirely submitted in cassette C1. (EA:[id number]) /MRV 09/10/2020 1553 Local . 02 Microscopic: . B. An immunohistochemical stain was performed to evaluate for Helicobacter organisms and is negative. The control stain showed appropriate reactivity. . * This test was developed and its performance characteristics determined by [facility]. It has not been cleared or approved by the U.S. Food and Drug Administration. The FDA has determined that such clearance or approval is not necessary. This test is used for clinical purposes. It should not be regarded as investigational or for research. . 02 Pathologist provided ICD-10: R10.13, R63.4 . 02 CPT . 238279, 840049, 539912, [id number] Performed at: 01 [facility] [address] [facility], [place], [place] [id number] MD Adriano Gardner MD Phone: [phone] Performed at: 02 [facility] [address] [place], [place] [id number] MD Idalia Gaxiola MD Phone: [phone]
[2020-09-09] MEDS: LACTATED RINGERS 1,000 ML 100 ML IV (09:59)
--- NOTE | 2020-09-09 10:49 | PM.PREOP ---
Pre-operative Note COVID-19 COVID-19 status: Negative Result date/Date tested (Pos, Neg/Pending): 09/06/20 Interval Note History & Physical reviewed/Exam performed by Physician: Yes Changes to H&P: No
--- NOTE | 2020-09-09 12:02 | P.OP.ENDO_ITS ---
Operative Date/Time/Diagnoses Date of procedure: 09/09/20 Time of procedure: 12:02 Pre-op diagnosis: Nausea, unexplained 40 lb weight loss in 1 year Post-op diagnosis: other (Mild gastritis) Procedure & Clinicians Study performed: Esophagogastroduodenoscopy Standard forceps biopsies of stomach and duodenum, rule out H pylori, sprue Colonoscopy Standard forceps random biopsies of the colon, rule out microscopic colitis Same procedure as scheduled: Yes Indications: Nausea, weight loss. MAC sedation by the anesthesiologist would be required because of the patient's history of awareness under procedural sedation, and request for anesthesiologist to perform deep sedation Surgeon: Lidya Pal Procedure Notes SCOAP/Timeout: Performed Procedure in detail: The patient was brought to the room and placed in left lateral decubitus position with all bony prominences padded. A bite block was positioned in the patient's mouth to protect the lips, teeth, and tongue for the procedure. A time-out was performed and then the patient was given MAC sedation by Dr. Shah. Once adequately sedated, the procedure was begun. The lubricated gastroscope was passed through the bite block and across the tongue and into the esophagus without incident. A tubular view of the esophagus was maintained as the scope was advanced through the esophagus and into the stomach. The scope was advanced through the stomach and to the pylorus. The scope was gently popped through the pylorus and into the duodenal bulb. There were redundant mucosal folds in the duodenal bulb, obscuring the curve of the C loop. With some additional maneuvering, I was able to flex the scope and advance into the second and third portions of the duodenum. No neoplasm or ulcer was seen to explain this. It may just be an anatomical variant. The duo denum and duodenal bulb appeared nayeli with slight inflammatory change. Biopsies were taken. The scope was withdrawn into the stomach. The stomach revealed some low-grade endoscopic gastritis. Biopsies were taken. The scope was retroflexed and the gastric cardia was examined. The hiatus [appeared normal with no gaping around the scope, or evidence of any significant hiatal hernia. The scope was then straightened, and withdrawn into the esophagus. The Z-line appeared normal. No evidence of reflux esophagitis or Lopez's esophagitis was seen. The distal esophagus appeared normal. The scope was then withdrawn through the esophagus with a tubular view. The scope was then withdrawn from the patient And attention was turned to the colonoscopy portion of the procedure. A rectal exam was performed revealing no abnormalitie. The colonoscope was then introduced to the rectum and advanced to the cecum in the usual fashion. The colon was very tortuous, and required some additional maneuvers, using the stiffener flooding the colon with water to help safely reach the cecum. The cecum was identified by the appendiceal orifice, the mucosal tri-fold, and the ileocecal valve. There was some solid debris in the cecum and transverse colon that I was not able to suction out. It is possible that lesions smaller than 5 mm could have been missed due to the inadequacy of the prep. The scope was then retracted while rotating side to side and examining each mucosal fold. No polyps or other abnormalities were seen. Standard forceps biopsies were taken to rule out microscopic colitis. At the conclusion of the procedure retroflexion was performed and small grade 1-2 internal hemorrhoids without stigmata of bleeding were seen. The scope was then withdrawn from the rectum the procedure was concluded. The patient tolerated the procedure well and was transferred to the PACU in stable condition. Scope withdrawal time: 10 Findings: gastritis and other findings (Redundant folds of mucosa in the C-loop of the duodenum, likely normal anatomical variant) Specimen(s): other (Biopsies of stomach and duodenum, random biopsies of colon) Complications: none Impression: The potential cause of her nausea could be the gastritis, although it is quite mild viewed endoscopically. We will see with the biopsy results reveal, and specifically rule out H pylori. The redundant folds in her duodenum, may be normal variant. If we find no cause of her nausea on the biopsy results, and may be necessary to do a gastric emptying study, barium swallow, or endoscopic ultrasound to further evaluate this area. Post-procedure Recommendations: Colonscopy in 10 years and Will call with biopsy results Plan for aftercare: Further recommendations will be forthcoming pending the biopsy results Follow up: as needed Disposition: PACU
--- NOTE | 2020-09-09 12:07 | SUR.PHASEI ---
Pt sleepy, awakened over time. Dentures replaced in mouth per request. C/O pain in lower abdomen rated 7/10/ Belly is soft, pt passing gas per rectum. VSS. Dr Pal made aware of pain, no new orders.
--- NOTE | 2020-09-09 12:11 | SUR.PHASEI ---
Pt relaxed, rr 17 uven and unlabored.
== END 2020-09-09 12:50 | disposition home or self-care (01) ==
PROVIDERS: PCP Student in an Organized Health Care Education/Training Program; Referring Provider Student in an Organized Health Care Education/Training Program; Visit Provider Surgery
PROC: 0DJD8ZZ Inspection of Lower Intestinal Tract, Via Natural or Artificial Opening Endoscopic (ICD-10-PCS; CPT 45378; 2020-09-09 10:45)
PROC: 0DJ08ZZ Inspection of Upper Intestinal Tract, Via Natural or Artificial Opening Endoscopic (ICD-10-PCS; CPT 43235; 2020-09-09 10:45)
DX: K29.50 Unspecified chronic gastritis without bleeding (principal); R63.4 Abnormal weight loss; R11.0 Nausea; F17.210 Nicotine dependence, cigarettes, uncomplicated; K64.0 First degree hemorrhoids
CPT/HCPCS: 45380; 43239; J2704

== ENCOUNTER 2020-09-29 17:00 | Emergency (ER) | payer MEDICARE, OTHER, SELFPAY ==
[2020-09-29] VITALS (10 sets, daily range): BP systolic 111–143; BP diastolic 65–75; PULSE 63–83; RESP 13–30; TEMP 37.1; O2SAT 97–100; BMI 19.3
[2020-09-29 18:09] LABS: Add Manual Diff / Slide Review NO; Basophils Absolute Auto 100 /uL (0-100); Eosinophils Absolute Auto 100 /uL (0-450); Hematocrit 42.2 % (36-46); Hemoglobin 14.3 g/dL (12.0-16.0); Lymphocytes Absolute Auto 3100 /uL (1100-4500); Lymphocytes Percent Auto 41.3 % (25-40); Mean Corpuscular HGB Conc 33.9 % (30-36); Mean Corpuscular Hemoglobin 30.7 PG (26-34); Mean Corpuscular Volume 90.7 fL (80-100); Monocytes Absolute Auto 400 /uL (0-900); Monocytes Percent Auto 5.1 % (3-14); Neutrophils Absolute Auto 3900 /uL (1500-7000); Neutrophils Percent Auto 51.6 % (50-75); Platelet Count 251 X10^3/uL (150-400); Red Blood Cell Count 4.65 X10^6/uL (4.0-5.2); Red Cell Distribution Width 12.7 % (11.6-14.8); White Blood Cell Count 7.5 X10^3/uL (4.5-11.0)
[2020-09-29 18:13] LABS: Alanine Aminotransferase 15 IU/L (<35); Albumin Globulin Ratio 1.6 (1.0-2.8); Alkaline Phosphatase 88 U/L (38-126); Aspartate Aminotransferase 23 IU/L (14-36); BUN Creatinine Ratio 15.5 (6-22); Bilirubin Total 0.3 mg/dL (0.2-1.3); Blood Urea Nitrogen 9 mg/dL (7-17); Calcium 10.3 mg/dL (8.4-10.2); Carbon Dioxide 27 mmol/L (22-32); Chloride 105 mmol/L (98-107); Estimated Glomerular Filt Rate > 60.0 mL/min (>60); Globulin 3.1 g/dL (1.7-4.1); Glucose 97 mg/dL (70-100); HEMOLYSIS < 15 (0-50); Lipase 67 U/L (23-300); Potassium 4.4 mmol/L (3.4-5.1); Sodium 141 mmol/L (137-145); Total Protein 8.1 g/dL (6.3-8.2)
--- NOTE | 2020-09-29 18:16 | ED.ABDPAIN ---
HPI - Abdominal Pain General Chief Complaint: Abdominal Pain Stated Complaint: UPPER LEFT ABD PAIN SHOOTING TOWARDS BACK NAUSEA Time Seen by Provider: 09/29/20 17:52 Source: patient Mode of arrival: Ambulatory Limitations: no limitations History of Present Illness HPI narrative: 50-year-old woman with a history of interstitial cystitis with spine stimulator presents 2-3 days of increasing left upper flank/lower posterior lung pain that is worse with movement causing significant nausea without vomiting. Today it is severe enough that she has been unable to eat anything at all. She is not complaining of fever, cough, chills. She notes normal bowel movements with no change to texture color. She has some left upper quadrant abdominal pain. She describes his pain is significantly different from any prior interstitial cystitis pain. She was seen recently with imaging done for hemoptysis imaging at that point did not show anything in her abdomen and she had some small pulmonary nodules that need follow-up in 6 months. She does not describe any further cough or hemoptysis this point. Related Data Home Medications Medication Instructions Recorded Confirmed tizanidine 4 mg tablet 4 mg PO BID PRN 05/28/20 09/04/20 Previous Rx's Medication Instructions Recorded lidocaine 5 % topical patch 1 patch TOP DAILY #15 each 01/03/19 Allergies Allergy/AdvReac Type Severity Reaction Status Date / Time cephalexin [From KEFLEX] Allergy Severe DRY HEAVES Verified 09/04/20 13:58 adhesive tape AdvReac Mild Rash Verified 09/04/20 13:58 Review of Systems Review of Systems Narrative: Remainder of complete review of systems is otherwise unremarkable except for that included in the HPI. Patient History Medical History Arthritis DDD (degenerative disc disease) GERD (gastroesophageal reflux disease) Greater trochanteric bursitis of right hip Hiatal hernia Hx of multiple pulmonary nodules Hx of temporomandibular joint disorder Interstitial cystitis Ovarian cyst Tibia/fibula fracture Surgical History History of breast biopsy History of hysterectomy History of surgical removal of nipple History of tonsillectomy S/P bilateral salpingo-oophorectomy (09/09/18) S/P laparoscopic procedure (09/09/18) Status post epidural steroid injection Family History Family/Other Family history not known due to adoption Social History marital status: household members: spouse occupational status: employed Smoking Status: Current every day smoker alcohol intake: never substance use type: does not use additional social history: Adopted Smoking Status: Current every day smoker alcohol intake frequency: a few times a month Substance Use Type: marijuana Exam Narrative Exam Narrative: General: Healthy appearing, in mild distress. Able to give a complete and coherent history. Well-nourished well-developed HEENT: Moist mucous membranes, normal sclera with reactive pupils, Neck: supple Respiratory: Lungs are clear to auscultation, no wheezing no rales no rhonchi. Full and symmetrical air movement Cardiac: Regular rate and rhythm no murmurs no bruits Spine: No point tenderness along the thoracic or lumbar spine. Spinal stimulator is palpable just above the left SI joint. Abdomen: Soft, mildly tender in the left upper quadrant without rebound or guarding, good bowel tones, no flank pain Skin: Warm and dry, no rashes Neurologic: Grossly neurologically intact with no obvious asymmetries or abnormalities Extremities: No trauma, well perfused Psych: Cooperative, appropriate insight and affect Initial Vital Signs Initial Vital Signs: Vital Signs Pulse Rate 83 09/29/20 17:25 Pulse Oximetry 99 09/29/20 17:25 Course Orders Ordered: ED Orders 09/29/20 17:45 Urine Culture Stat Urine Microscopic Stat 09/29/20 17:48 Complete Blood Count AUTO DIFF Stat Comprehensive Metabolic Panel Stat Lipase Stat 09/29/20 17:54 Test Urine Stat 09/29/20 18:28 CT abdomen pelvis w con Stat Hydromorphone HCl (Hydromorphone 0.5 Mg Inj) 0.5 mg IV Q15MIN PRN PRN Reason: Pain, Last Admin: 09/29/20 20:08 Dose: 0.5 mg Documented by: Admin: 09/29/20 19:27 Dose: 0.5 mg Documented by: Admin: 09/29/20 18:37 Dose: 0.5 mg Documented by: CHIRAG Discontinued Medications Sodium Chloride (Normal Saline 0.9%) 1,000 mls @ 1,000 mls/hr IV BOLUS ONE Stop: 09/29/20 19:25 Last Infusion: 09/29/20 19:41 Dose: 0 mls/hr Documented by: Admin: 09/29/20 18:37 Dose: 1,000 mls/hr Documented by: CHIRAG Ondansetron HCl (Ondansetron 4 Mg/2 Ml Inj) 4 mg IV NOW ONE Stop: 09/29/20 18:27 Last Admin: 09/29/20 18:37 Dose: 4 mg Documented by: CHIRAG Vital Signs Vital signs: Vital Signs - 8 hr 09/29/20 17:25 09/29/20 17:30 09/29/20 17:49 Temperature 98.8 F Pulse Rate 83 76 76 Respiratory Rate 28 H 20 Blood Pressure 126/75 129/75 Pulse Oximetry 99 100 100 09/29/20 18:00 09/29/20 18:30 09/29/20 19:00 Temperature Pulse Rate 65 63 63 Respiratory Rate 17 30 H 24 Blood Pressure 111/69 115/72 119/72 Pulse Oximetry 99 100 97 09/29/20 19:23 09/29/20 19:30 09/29/20 20:00 Temperature Pulse Rate 71 69 67 Respiratory Rate 18 15 13 Blood Pressure 143/65 H 118/67 125/65 Pulse Oximetry 99 100 98 MDM - Abdominal Pain Medical Records Attestation: I reviewed the patient's medical records. Lab Data Attestation: I reviewed the patient's lab results. Result diagrams: 09/29/20 17:48 09/29/20 17:48 Labs: Lab Results 09/29/20 09/29/20 09/29/20 Range/Units 17:45 17:48 17:48 WBC 7.5 (4.5-11.0) X10^3/uL RBC 4.65 (4.0-5.2) X10^6/uL Hgb 14.3 (12.0-16.0) g/dL Hct 42.2 (36-46) % MCV 90.7 (80-100) fL MCH 30.7 (26-34) PG MCHC 33.9 (30-36) % RDW 12.7 (11.6-14.8) % Plt Count 251 (150-400) X10^3/uL Neut % (Auto) 51.6 (50-75) % Lymph % (Auto) 41.3 H (25-40) % [place] % (Auto) 5.1 (3-14) % Eos % (Auto) 1.0 L (2-4) % Baso % (Auto) 1.0 (0-2) % Neut # (Auto) 3900 (8150-4150) /uL Lymph # (Auto) 3100 (8315-5982) /uL [place] # (Auto) 400 (0-900) /uL Eos # (Auto) 100 (0-450) /uL Baso # (Auto) 100 (0-100) /uL Sodium 141 (137-145) mmol/L Potassium 4.4 (3.4-5.1) mmol/L Chloride 105 (98-107) mmol/L Carbon Dioxide 27 (22-32) mmol/L BUN 9 (7-17) mg/dL Creatinine 0.58 (0.52-1.04) mg/dL Estimated GFR > 60.0 (>60) mL/min BUN/Creatinine Ratio 15.5 (6-22) Glucose 97 (70-100) mg/dL Calcium 10.3 H (8.4-10.2) mg/dL Total Bilirubin 0.3 (0.2-1.3) mg/dL AST 23 (14-36) IU/L ALT 15 (<35) IU/L Alkaline Phosphatase 88 (38-126) U/L Total Protein 8.1 (6.3-8.2) g/dL Albumin 5.0 (3.5-5.0) g/dL Globulin 3.1 (1.7-4.1) g/dL Albumin/Globulin Ratio 1.6 (1.0-2.8) Lipase 67 (23-300) U/L Urine RBC 5-10/hpf H (0-5/HPF) Urine WBC 1-5/hpf (0-5/HPF) Ur Squamous Epith Cells 1-5 /hpf (0-5/HPF) Urine Bacteria Moderate (10-30) H (None) Ur Culture Indicated? Specimen cultured Urine Test (Negative) 09/29/20 Range/Units 17:54 WBC (4.5-11.0) X10^3/uL RBC (4.0-5.2) X10^6/uL Hgb (12.0-16.0) g/dL Hct (36-46) % MCV (80-100) fL MCH (26-34) PG MCHC (30-36) % RDW (11.6-14.8) % Plt Count (150-400) X10^3/uL Neut % (Auto) (50-75) % Lymph % (Auto) (25-40) % [place] % (Auto) (3-14) % Eos % (Auto) (2-4) % Baso % (Auto) (0-2) % Neut # (Auto) (5695-1116) /uL Lymph # (Auto) (5629-4083) /uL [place] # (Auto) (0-900) /uL Eos # (Auto) (0-450) /uL Baso # (Auto) (0-100) /uL Sodium (137-145) mmol/L Potassium (3.4-5.1) mmol/L Chloride (98-107) mmol/L Carbon Dioxide (22-32) mmol/L BUN (7-17) mg/dL Creatinine (0.52-1.04) mg/dL Estimated GFR (>60) mL/min BUN/Creatinine Ratio (6-22) Glucose (70-100) mg/dL Calcium (8.4-10.2) mg/dL Total Bilirubin (0.2-1.3) mg/dL AST (14-36) IU/L ALT (<35) IU/L Alkaline Phosphatase (38-126) U/L Total Protein (6.3-8.2) g/dL Albumin (3.5-5.0) g/dL Globulin (1.7-4.1) g/dL Albumin/Globulin Ratio (1.0-2.8) Lipase (23-300) U/L Urine RBC (0-5/HPF) Urine WBC (0-5/HPF) Ur Squamous Epith Cells (0-5/HPF) Urine Bacteria (None) Ur Culture Indicated? Urine Test Negative (Negative) Point of care testing: Urine Dip Bedside Urine Glucose Negative Bedside Urine Bilirubin - Negative Bedside Urine Ketone - Negative Urine Specific [place] 1.015 Bedside Urine Occult Blood ++ Bedside Urine pH 6 Bedside Urine Protein - Negative Bedside Urine Urobilinogen - Negative Bedside Urine Nitrite - Negative Bedside Urine Leukocytes - Negative Esterase Imaging Data CT scan - abdomen/pelvis: Radiologist's Impression: FINDINGS: Image quality: Excellent. ABDOMEN: Lung bases: Lung bases are clear. Heart size is normal. Solid organs: Liver is normal in size and enhancement. Gallbladder is unremarkable. Biliary system is non dilated. Pancreas enhances normally. Spleen is normal in size and enhancement. No adrenal nodules. Kidneys demonstrate normal size and enhancement, without hydronephrosis. Peritoneum and bowel: Bowel loops demonstrate normal wall thickness and caliber. No free fluid or air. Nodes and vessels: No retroperitoneal or mesenteric adenopathy by size criteria. Aorta and inferior vena cava are normal in size. Miscellaneous: No ventral hernias. PELVIS: Genitourinary: Bladder wall thickness is normal. Miscellaneous: No inguinal hernias or adenopathy. Uterus is surgically absent. Bones: No suspicious bony lesions. No vertebral body compression fractures. Dorsal column stimulator. IMPRESSION: No evidence acute abdominal process. Dictated by: Amaury Lopez M.D. on 09/29/2020 at 19:54 MDM Narrative Medical decision making narrative: 50-year-old woman who presents with left upper flank/lower posterior chest pain worse with breathing moving and significant enough that is causing some nausea. No actual emesis. Workup is unremarkable at this time with no evidence of infection, pneumothorax, CT scan of the abdomen is unremarkable no evidence pancreatitis. She did have a CT scan of the lungs about a month ago that showed some pulmonary nodules but no other significant findings. Bottom portions of the lungs on CT scan today or reassuring. No evidence of shingles. At this point she is safe for home discharge this is likely musculoskeletal in nature. Treating the pain at this point is safe and appropriate. She did have small amount of bacteria in her urine but does have a history of interstitial cystitis so will opt to not treat that as an infection unless the culture does come back positive. She is safe for home discharge Discharge Plan Departure Patient Disposition: Home Clinical Impression: Musculoskeletal chest pain Instructions: DI for Musculoskeletal Pain Activity Restrictions/Additional Instructions: Thank you for coming in today Your workup was very reassuring. There is no skin lesions to suggest this might be shingles however if you do notice a rash breaking out please return to the ER. No sign of a heart attack, pneumonia, pancreatitis, gallbladder concerns, intra-abdominal abscesses(like appendicitis or diverticulitis) and no evidence of pyelonephritis. Using 400 mg of ibuprofen (2 jxmj-jrc-hntcqdi pills) and 1 Tylenol every 6 hours can be very helpful in controlling pain. I hope you feel better. Prescriptions: No Action lidocaine 5 % adhesive patch,medicated 1 patch TOP DAILY Qty: 15 RF: 1 tizanidine 4 mg tablet 4 mg PO BID PRN (Reason: Muscle Spasm) RF: 0 Referrals: Kenny Wilkinson MD [Primary Care Provider] -
[2020-09-29 18:19] LABS: Pregnancy Test Urine Negative (Negative)
[2020-09-29 18:23] LABS: Bacteria Urine Moderate (10-30); Culture Indicated Urine Specimen Cultured; RBC Urine 5-10/HPF (0-5/HPF); Squamous Epithelial Cell Urine 1-5 /HPF (0-5/HPF); WBC Urine 1-5/HPF (0-5/HPF)
--- NOTE | 2020-09-29 18:28 | DI.CT.S_ITS ---
PROCEDURE: CT ABDOMEN PELVIS W CON INDICATIONS: Right flank pain TECHNIQUE: After the administration of intravenous contrast, 5 mm thick sections acquired from the diaphragm to the symphysis. 5 mm coronal and sagittal reformats were acquired. For radiation dose reduction, the following was used: automated exposure control, adjustment of mA and/or kV according to patient size. COMPARISON: [facility], CT, CT ABDOMEN PELVIS W CON, 08/13/2020, 13:48. FINDINGS: Image quality: Excellent. ABDOMEN: Lung bases: Lung bases are clear. Heart size is normal. Solid organs: Liver is normal in size and enhancement. Gallbladder is unremarkable. Biliary system is non dilated. Pancreas enhances normally. Spleen is normal in size and enhancement. No adrenal nodules. Kidneys demonstrate normal size and enhancement, without hydronephrosis. Peritoneum and bowel: Bowel loops demonstrate normal wall thickness and caliber. No free fluid or air. Nodes and vessels: No retroperitoneal or mesenteric adenopathy by size criteria. Aorta and inferior vena cava are normal in size. Miscellaneous: No ventral hernias. PELVIS: Genitourinary: Bladder wall thickness is normal. Miscellaneous: No inguinal hernias or adenopathy. Uterus is surgically absent. Bones: No suspicious bony lesions. No vertebral body compression fractures. Dorsal column stimulator. IMPRESSION: No evidence acute abdominal process. Dictated by: Amaury Lopez M.D. on 09/29/2020 at 19:54 Approved by: Amaury Lopez M.D. on 09/29/2020 at 19:55
[2020-09-29] MEDS: ONDANSETRON 4 MG/2 ML INJ IV (18:37)
[2020-09-29] MEDS: SODIUM CHLORIDE 0.9% 1,000 ML 1000 ML IV (18:37)
[2020-09-29] MEDS: HYDROMORPHONE 0.5 MG INJ IV ×3 (18:37→20:08)
== END 2020-09-29 20:46 | disposition home or self-care (01) ==
PROVIDERS: Emergency Medicine; Emergency Provider Emergency Medicine; PCP Student in an Organized Health Care Education/Training Program
DX: R07.89 Other chest pain (principal); R11.0 Nausea
CPT/HCPCS: 36415; 74177; 80053; 81003; 81015; 81025; 83690; 85025; 87086; 96361; 96374; 96375; 96376; 99284; J1170; J2405; Q9967

== ENCOUNTER → 2020-10-21 15:50 | Outpatient (CLI) | payer MEDICARE, OTHER, SELFPAY ==
--- NOTE | 2020-10-21 15:52 | DI.MG.S_ITS ---
BILATERAL DIGITAL SCREENING MAMMOGRAM 3D/2D WITH CAD: 10/21/2020 CLINICAL: Routine screening. Comparison is made to exams dated: 08/09/2018 mammogram, 12/17/2006 mammogram, and 10/15/2005 mammogram - [facility]. The tissue of both breasts is extremely dense, which lowers the sensitivity of mammography. Current study was also evaluated with a Computer Aided Detection (CAD) system. No significant masses, calcifications, or other findings are seen in either breast. There has been no significant interval change. IMPRESSION: NEGATIVE There is no mammographic evidence of malignancy. A 1 year screening mammogram is recommended. This exam was interpreted at Station ID: [id number]. NOTE: For mammograms, a report in lay terms will be sent to the patient. Approximately 15% of breast malignancies will not be visualized mammographically. In the management of a palpable breast mass, a negative mammogram must not discourage biopsy of a clinically suspicious lesion. Electronically Signed By: Sabino sykes/henrique:10/21/2020 17:22:57 letter sent: Normal Exam ACR BI-RADS Category 1: Negative [id number]
== END ==
PROVIDERS: PCP Student in an Organized Health Care Education/Training Program; Referring Provider Student in an Organized Health Care Education/Training Program; Visit Provider Student in an Organized Health Care Education/Training Program
DX: Z12.31 Encounter for screening mammogram for malignant neoplasm of breast (principal)
CPT/HCPCS: 77063; 77067

== ENCOUNTER → 2020-12-30 08:05 | Outpatient (CLI) | payer MEDICARE, OTHER, SELFPAY ==
[2020-12-30 12:53] LABS: COVID19 -Nasal RAPID Negative (Negative)
== END ==
PROVIDERS: PCP Student in an Organized Health Care Education/Training Program; Visit Provider Physical Medicine & Rehabilitation
DX: Z20.822 Contact with and (suspected) exposure to COVID-19 (principal)
CPT/HCPCS: 87635; C9803

== ENCOUNTER 2020-12-31 08:05 | Outpatient (CLI) | payer MEDICARE, OTHER, SELFPAY ==
[2020-12-31] VITALS (8 sets, daily range): BP systolic 90–128; BP diastolic 50–71; PULSE 64–75; RESP 10–20; TEMP 36.4; O2SAT 100
--- NOTE | 2020-12-31 08:09 | DI.RAD.S_ITS ---
PROCEDURE: PAIN L/S TRANSFORAM INJECT RACHEAL COMPARISON: [facility], CR, XR LUMBAR SPINE 2-3V, 08/22/2020, 15:17. INDICATIONS: SPONDYLOSIS FINDINGS: Fluoroscopic spot filming was performed to verify placement of a spinal needle at the L4-L5 level on both sides, as labeled on the films. Appropriate location of the needle tips was confirmed by injection of iodinated contrast. IMPRESSION: Intraprocedural examination within normal limits. Dictated by: Ang Duran M.D. on 12/31/2020 at 9:50 Approved by: Ang Duran M.D. on 12/31/2020 at 9:50
[2020-12-31] MEDS: fentaNYL 100 MCG/2 ML INJ 50 MCG IV (08:45)
[2020-12-31] MEDS: MIDAZOLAM 5 MG/5 ML VIAL IV (08:48)
[2020-12-31] MEDS: IOPAMIDOL 15 ML VIAL 3 ML INJ (08:53)
[2020-12-31] MEDS: DEXAMETHASONE 10 MG/ML VIAL 20 MG INJ (08:54)
[2020-12-31] MEDS: BUPIVACAINE 0.25% (PF) VIAL 2 ML INJ (08:54)
[2020-12-31] MEDS: BETAMETHASONE 30 MG/5 ML MDV 12 MG INJ (08:54)
--- NOTE | 2020-12-31 08:59 | PM.PROC.IR.1 ---
Date/Time/Diagnoses Date of procedure: 12/31/20 Time of procedure: 08:59 Pre-procedure diagnosis: 1. FORAMINAL STENOSIS WITH LE SYMPTOMS Procedure Notes Procedure: 1. FLUOROSCOPICALLY GUIDED CONTRAST CONTROLLED TRANSFORAMINAL EPIDURAL STEROID INJECTION - BILATERAL L4/5 TFESI Indications: Pauly is referred by Dr. Wilkinson for treatment of Foraminal Stenosis with bilateral LE Symptoms Physician: Neftali Tyler Total Fluoroscopy time (seconds): 11 Total sedation minutes: 12 Complications: none Procedure in detail & Post-procedure care: FINDINGS Foraminal Nerve Root Compression secondary to disc disease and facet hypertrophy DESCRIPTION OF PROCEDURE Following review of allergy and review of potential side effects and complications, including, but not necessarily limited to, infection, allergic reaction, local tissue breakdown, stroke, temporary or permanent nerve injury, paralysis, and possible , the patient indicated that the patient understood and agreed to proceed. An informed consent document was signed by the patient, witnessed by a nurse, and placed in the patient's chart. Additionally, other treatment options including medications, modalities, and physical therapy were reviewed with the patient. After review of previous anaesthesic history and IV conscious sedation the patient was deemed safe to proceed with today?s procedure with IV conscious sedation as ASA class II designation. Safety time-out was performed to confirm patient ID, procedure to be performed and site of procedure. IV sedation was accomplished with a combination of 4mg of Versed and 50mcg of Fentanyl was administered by the RN after DO order, titrated to patient comfort during the course of the procedure while the patient remained responsive to all verbal commands In the prone position following sterile prep and drape of the lumbar region, the right L4/5 posterior neuroforamen was identified fluoroscopically. The skin was anesthetized via a 25-gauge 1.5-inch needle with 1% lidocaine solution. At this point, a 25-gauge 3.5-inch spinal needle was atraumatically introduced and advanced under fluoroscopic guidance through the posterior right L4/5 neuroforamen to approximately the anterior aspect of the canal. Depth was confirmed on lateral view. Following negative aspiration, injection of approximately 1.5cc of Isovue 200 under live fluoroscopy in the AP view confirmed excellent flow along the nerve root, into the epidural space without vascular or intrathecal uptake observed Radiological data, including multiple fluoroscopic views of the lumbosacral spine, reveal a spinal needle at the right L4/5 posterior neuroforamen. Subsequent views show flow of contrast material flowing superiorly and inferiorly along the nerve root confirming epidural flow. Subsequently, a test dose of 1.5cc of 1% lidocaine solution was administered and patient was observed for two minutes for signs or symptoms of complications, including abdominal pain, shortness of breath, bilateral upper or lower extremity weakness, nausea and vomiting, prior to steroid injection. At this point, a total of 3cc or 20mg of dexamethasone and 6mg betamethasone was injected without incident. Attention was then refocused to the left L4/5 level where the identical procedure was replicated. The procedure tolerated the procedure well without signs or symptoms of complications prior to transfer to the recovery area continued monitoring without incident. The patient was then transferred to the recovery area where they were observed for an appropriate time after the injection. The patient reported a VAS score of 7 prior to the procedure and a post-procedure VAS of 0. POST OP INSTRUCTIONS The patient was provided a Pain Log to continue to record their response to the target-specific procedure prior to follow-up visit with their referring physician. Additionally, specific post-injection care instructions and a contact number to our office were provided if concerns arise regarding possible complications associated with the procedure are suspected.
== END 2020-12-31 09:20 | disposition home or self-care (01) ==
LOC: RAD 08:08
PROVIDERS: PCP Student in an Organized Health Care Education/Training Program; Referring Provider Physical Medicine & Rehabilitation; Visit Provider Physical Medicine & Rehabilitation
DX: M48.061 Spinal stenosis, lumbar region without neurogenic claudication (principal); M51.16 Intervertebral disc disorders with radiculopathy, lumbar region
CPT/HCPCS: 64483; 99152; J0702; J1100; J2250; J3010

== ENCOUNTER → 2021-02-10 14:06 | Outpatient (CLI) | payer MEDICARE, OTHER, SELFPAY ==
--- NOTE | 2021-02-10 14:10 | DI.CT.S_ITS ---
PROCEDURE: CT CHEST WO CON INDICATIONS: 6 mo f/u TECHNIQUE: Noncontrast 5 mm thick sections acquired from the pulmonary apices to the posterior costophrenic angles. 1 mm lung window, 5 mm thick coronal and sagittal and 7 mm axial MIP reformats were then acquired. For radiation dose reduction, the following was used: automated exposure control, adjustment of mA and/or kV according to patient size. COMPARISON: Reference is made to the CTA chest dated August 13, 2020. FINDINGS: Image quality: Excellent. Lungs and pleura: Minimal biapical pleural thickening/scarring. A few scattered calcified granulomas are again seen. No focal consolidation. Paraseptal and centrilobular emphysematous changes are noted. No pleural effusions or pneumothorax. Central and peripheral airways are patent and normal in caliber. Left lower lobe scar/atelectasis. Mediastinum: Heart size is normal. No pericardial effusion. No mediastinal adenopathy by size criteria. Thoracic aorta and central pulmonary arteries are normal in size. Esophagus is normal in caliber. No hiatal hernia. Bones and chest wall: No suspicious bony lesions. No vertebral body compression fractures. No axillary or supraclavicular adenopathy by size criteria. The thyroid gland is homogeneous. Abdomen: Visualized upper abdominal solid organs and bowel loops appear normal in the absence of contrast. IMPRESSION: 1. No significant intrathoracic abnormality. Dictated by: Jamie Lin M.D. on 02/10/2021 at 15:18 Approved by: Jamie Lin M.D. on 02/10/2021 at 15:42
== END ==
PROVIDERS: PCP Student in an Organized Health Care Education/Training Program; Referring Provider Student in an Organized Health Care Education/Training Program; Visit Provider Student in an Organized Health Care Education/Training Program
DX: R91.8 Other nonspecific abnormal finding of lung field (principal)
CPT/HCPCS: 71250

== ENCOUNTER → 2021-02-17 10:22 | Outpatient (CLI) | payer MEDICARE, OTHER, SELFPAY ==
[2021-02-17 16:11] LABS: COVID19 -Nasal RAPID Negative (Negative)
== END ==
PROVIDERS: PCP Student in an Organized Health Care Education/Training Program; Visit Provider Physical Medicine & Rehabilitation
DX: Z20.822 Contact with and (suspected) exposure to COVID-19 (principal)
CPT/HCPCS: 87635; C9803

== ENCOUNTER 2021-02-18 07:25 | Outpatient (CLI) | payer MEDICARE, OTHER, SELFPAY ==
[2021-02-18] VITALS (7 sets, daily range): BP systolic 88–110; BP diastolic 50–60; PULSE 62–75; RESP 8–21; TEMP 36.6; O2SAT 96–100
--- NOTE | 2021-02-18 07:27 | DI.RAD.S_ITS ---
PROCEDURE: PAIN L INTERLAMINAR/CAUDAL INJ INDICATIONS: SPONDYLOSIS COMPARISON: [facility], CT, CT LUMBAR SPINE WITHOUT CONTRAST, 01/16/2021, 17:02. [facility], XA, PAIN L/S TRANSFORAM INJECT RACHEAL, 12/31/2020, 8:50. FINDINGS: Fluoroscopic spot filming was performed to verify placement of a spinal needle at the L4-L5 level, as labeled on the films. Appropriate location of the needle tip was confirmed by injection of iodinated contrast. IMPRESSION: Intraprocedural examination within normal limits. Dictated by: Ang Duran M.D. on 02/18/2021 at 8:52 Approved by: Ang Duran M.D. on 02/18/2021 at 8:52
[2021-02-18] MEDS: MIDAZOLAM 5 MG/5 ML VIAL IV (08:30)
[2021-02-18] MEDS: fentaNYL 100 MCG/2 ML INJ 50 MCG IV (08:30)
[2021-02-18] MEDS: DEXAMETHASONE 10 MG/ML VIAL 20 MG (08:36)
[2021-02-18] MEDS: BUPIVACAINE 0.25% (PF) VIAL 30 ML (08:36)
[2021-02-18] MEDS: IOPAMIDOL 15 ML VIAL 3 ML INJ (08:36)
[2021-02-18] MEDS: BETAMETHASONE 30 MG/5 ML MDV 12 MG INJ (08:37)
--- NOTE | 2021-02-18 08:48 | P.PCN_ITS ---
Date/Time/Diagnoses Date of procedure: 02/18/21 Time of procedure: 08:48 Pre-procedure diagnosis: 1. HNP WITH RADICULAR FEATURES, 2. MULTILEVEL CENTRAL STENOSIS, Post-procedure diagnosis: same Procedure Notes Procedure: 1. FLUOROSCOPICALLY GUIDED CONTRAST CONTROLLED INTERLAMINAR EPIDURAL STEROID INJECTION -L4/5 Indications: Pauly is referred by Dr. Wilkinson for treatment of Bilateral Foraminal Stenosis R>L LE symptoms. Physician: Neftali Tyler Total Fluoroscopy time (seconds): 7 Total sedation minutes: 11 Complications: none Procedure in detail & Post-procedure care: FINDINGS Multilevel Central Spinal Stenosis with Nerve Root Compression DESCRIPTION OF PROCEDURE Fluoroscopically guided, contrast-controlled L4/5 translaminar epidural steroid injection. Following review of allergy and review of potential side effects and complications, including, but not necessarily limited to, infection, allergic reaction, local tissue breakdown, temporary as well as permanent nerve injury, paralysis, stroke and possible , the patient indicated that the patient understood and agreed to proceed. An informed consent document was signed by the patient, witnessed by a nurse, and placed in the patient's chart. Additionally, other treatment options including modalities, medications, and physical therapy were reviewed with the patient. After review of previous anaesthesic history and IV conscious sedation the patient was deemed safe to proceed with today?s procedure with IV conscious sedation as ASA class II designation. Safety time-out was performed to confirm patient ID, procedure to be performed and site of procedure. IV sedation was accomplished with a combination of 3mg of Versed and 50mcg of Fentanyl was administered by the RN after DO order, titrated to patient comfort during the course of the procedure while the patient remained responsive to all verbal commands In the prone position, following sterile prep and drape of the lumbar region, the L4/5 translaminar space was identified fluoroscopically. The skin was anesthetized via a 25-gauge, 1.5inch needle with 1% lidocaine solution. At this point, a 22-gauge short bevel spinal needle was atraumatically introduced and advanced under fluoroscopic guidance into the region of the L4/5 translaminar space. Depth was confirmed on lateral view. Radiological data, including multiple fluoroscopic views of the lumbar spine, reveal a spinal needle at the L4/5 translaminar space. Lateral views then show placement of the needle in the epidural space. Subsequent views show contrast material flowing superiorly and inferiorly in the epidural space. No vascular or intrathecal uptake is observed. At this point, using loss of resistance technique with saline and air, the epidural space was entered. This was confirmed following negative aspiration with injection of approximately 1.5cc of Isovue 200, showing excellent epidural flow without vascular or intrathecal uptake. At this point, 1cc of 1% lidocaine solution combined with 3cc or 20mg of dexamethasone and 12mg betamethasone was injected without incident. The patient tolerated the procedure well without signs or symptoms of complicat ions prior to transfer to the recovery area continued monitoring without incident. The patient was then transferred to the recovery area where they were observed for an appropriate period of time after the injection. The patient reported a VAS score of 6 prior to the procedure and a post- procedure VAS of 0. POST OP INSTRUCTIONS The patient was provided a Pain Log to continue to record their response to the target-specific procedure prior to follow-up visit with their referring physician. Additionally, specific post-injection care instructions and a contact number to our office were provided if concerns arise regarding possible complications associated with the procedure are suspected.
== END 2021-02-18 09:05 | disposition home or self-care (01) ==
LOC: RAD 07:26
PROVIDERS: PCP Student in an Organized Health Care Education/Training Program; Referring Provider Physical Medicine & Rehabilitation; Visit Provider Physical Medicine & Rehabilitation
DX: M51.16 Intervertebral disc disorders with radiculopathy, lumbar region (principal); M48.061 Spinal stenosis, lumbar region without neurogenic claudication
CPT/HCPCS: 62323; 99152; J0702; J1100; J2250; J3010

== ENCOUNTER 2021-07-20 11:27 | Emergency (ER) | payer MEDICARE, OTHER, SELFPAY ==
[2021-07-20 11:51] VITALS: BP 119/60; PULSE 87; RESP 20; TEMP 37; O2SAT 100; BMI 20.1
[2021-07-20] MEDS: ONDANSETRON 4 MG ODT SL (15:53)
[2021-07-20] MEDS: OXYCODONE IR 5 MG TABLET PO (15:53)
[2021-07-20] MEDS: CYCLOBENZAPRINE 10 MG TABLET PO (15:53)
[2021-07-20 15:58] VITALS: BP 117/67; PULSE 74; RESP 14; O2SAT 98
--- NOTE | 2021-07-20 16:05 | ED.BACK ---
HPI - Back Pain/Injury <Dionicio Velázquez PA-C - Last Filed: 07/20/21 19:47> General Chief Complaint: Back Pain/Injury Stated Complaint: Sciatica, cold toes, left leg numb Time Seen by Provider: 07/20/21 15:22 Source: patient History of Present Illness HPI Narrative: Patient is a 51-year-old female with history of bilateral sciatica presents to the emergency department today for evaluation of low back pain. Patient states that she has experienced worsening left-sided sciatica for approximately 1 week with mild intermittent numbness in the left lower extremity. She states that her right-sided sciatica has not significantly worsened over that time. She states that she is usually able to control her symptoms but states that the pain significantly worsened over the last few days. She denies fever, chills, chest pain, cough, shortness of breath, nausea, vomiting, diarrhea, constipation, abdominal pain, dysuria, hematuria, urinary incontinence, fecal incontinence, saddle anesthesia, or any other concerning symptoms. No further concerns were voiced at this time. Related Data Home Medications Medication Instructions Recorded Confirmed tizanidine 4 mg tablet 4 mg PO BID PRN 05/28/20 09/04/20 Previous Rx's Medication Instructions Recorded lidocaine 5 % topical patch 1 patch TOP DAILY #15 each 01/03/19 tramadol 50 mg tablet 50 mg PO BID PRN #30 tab 01/27/21 nortriptyline 25 mg capsule 25 mg PO BEDTIME #60 cap MDD 2 tabs 02/18/21 baclofen 10 mg tablet 10 mg PO TID #30 tab 07/20/21 ondansetron 4 mg disintegrating 4 mg PO Q8H PRN #20 tab 07/20/21 tablet oxycodone 5 mg tablet 5 mg PO BID PRN #15 tab 07/20/21 Allergies Allergy/AdvReac Type Severity Reaction Status Date / Time cephalexin [From KEFLEX] Allergy Severe DRY HEAVES Verified 07/20/21 11:49 adhesive tape AdvReac Mild Rash Verified 07/20/21 11:49 Review of Systems <Dionicio Velázquez PA-C - Last Filed: 07/20/21 19:47> Constitutional Constitutional: Denies chills, Denies fatigue, Denies fever(s), Denies frequent falls, Denies lethargy and Denies weakness Eyes Eyes: Denies loss of vision ENT Ears, Nose, Mouth, and Throat: Denies dizziness and Denies neck pain Cardiovascular Cardiovascular: Denies chest pain, Denies irregular heart rhythm, Denies lightheadedness, Denies palpitations, Denies dyspnea, Denies dyspnea on exertion and Denies orthopnea Respiratory Respiratory: Denies cough, Denies dyspnea, Denies dyspnea on exertion and Denies wheezing Gastrointestinal Gastrointestinal: Denies abdominal pain, Denies change in bowel habits, Denies diarrhea, Denies nausea and Denies vomiting Genitourinary Genitourinary: Denies hematuria, Denies flank pain, Denies urinary incontinence and Denies urinary urgency Musculoskeletal Musculoskeletal: Reports back pain, Denies muscle weakness, Denies neck pain, Reports numbness (Left lower extremity) and Denies tingling Integumentary/Breasts Skin/Breast: Denies pruritus, Denies erythema, Denies rash and Denies wounds Neurologic Neurologic: Denies behavioral changes, Denies confusion, Denies dizziness, Denies frequent falls, Denies loss of vision, Reports numbness (Left lower extremity), Denies tingling, Denies weakness and Reports other (Bilateral sciatica) Psychiatric Psychiatric: Denies behavioral changes and Denies confusion Endocrine Endocrine: Denies fatigue and Denies palpitations Allergic/Immunologic Allergic/Immunologic: Denies wheezing Patient History <Dionicio Velázquez PA-C - Last Filed: 07/20/21 19:47> Medical History Arthritis DDD (degenerative disc disease) GERD (gastroesophageal reflux disease) Greater trochanteric bursitis of right hip Herniated nucleus pulposus, lumbar Hiatal hernia Hx of multiple pulmonary nodules Hx of temporomandibular joint disorder Impingement syndrome of left shoulder Interstitial cystitis Lumbar radiculopathy Ovarian cyst Tibia/fibula fracture Surgical History History of breast biopsy History of hysterectomy History of surgical removal of nipple History of tonsillectomy S/P bilateral salpingo-oophorectomy (09/09/18) S/P laparoscopic procedure (09/09/18) Status post epidural steroid injection Family History Family/Other Family history not known due to adoption Social History marital status: household members: spouse occupational status: employed Smoking Status: Current every day smoker alcohol intake: never substance use type: does not use additional social history: Adopted Smoking Status: Current every day smoker tobacco type: cigarettes alcohol intake frequency: a few times a month Substance Use Type: marijuana Exam <Dionicio Velázquez PA-C - Last Filed: 07/20/21 19:47> Narrative Exam Narrative: GENERAL: 51 year old patient appears stated age. Well-developed patient, in mild distress. Appears uncomfortable HEAD: Atraumatic. Normocephalic. EYES: Pupils equal round and reactive. Extraocular motions intact. No scleral icterus. No injection or drainage. ENT: Nose without bleeding, purulent drainage. Throat without erythema, tonsillar hypertrophy or exudate. Airway patent. NECK: Trachea midline. Non tender CARDIOVASCULAR: Regular rate and rhythm without murmurs, gallops, or rubs. RESPIRATORY: Clear to auscultation. Breath sounds equal bilaterally. No wheezes, rales, or rhonchi. GASTROINTESTINAL: Abdomen soft, non-tender, nondistended. EXTREMITIES: No edema or joint tenderness. BACK: No deformity or crepitance. No flank tenderness. Mild tenderness to palpation appreciated over the paraspinal muscles bilaterally over the area of L2 through L5. No significant overlying ecchymosis or erythema appreciated. NEURO: AOx3. Gross motor function intact throughout the bilateral lower extremities. Good sensation to light touch appreciated throughout bilateral lower extremities. SKIN: No rash or erythema of visible areas Initial Vital Signs Initial Vital Signs: Vital Signs Temperature 98.6 F 07/20/21 11:51 Pulse Rate 87 07/20/21 11:51 Respiratory Rate 20 07/20/21 11:51 Blood Pressure 119/60 07/20/21 11:51 Pulse Oximetry 100 07/20/21 11:51 Course <Dionicio Velázquez PA-C - Last Filed: 07/20/21 19:47> Course Course Narrative: Oxycodone, Flexeril, Zofran administered in the emergency department. Patient states she is feeling significantly better and would like to be discharged home. Orders Ordered: Discontinued Medications Baclofen (Baclofen 10 Mg Tablet) 10 mg PO NOW ONE Stop: 07/20/21 15:29 Last Admin: 07/20/21 15:49 Dose: Not Given Documented by: EDYTA Cyclobenzaprine HCl (Cyclobenzaprine 10 Mg Tablet) 10 mg PO NOW ONE Stop: 07/20/21 15:48 Last Admin: 07/20/21 15:53 Dose: 10 mg Documented by: NIKKI Ondansetron HCl (Ondansetron 4 Mg Odt) 4 mg SL NOW ONE Stop: 07/20/21 15:29 Last Admin: 07/20/21 15:53 Dose: 4 mg Documented by: NIKKI Oxycodone HCl (Oxycodone Ir 5 Mg Tablet) 5 mg PO NOW ONE Stop: 07/20/21 15:29 Last Admin: 07/20/21 15:53 Dose: 5 mg Documented by: NIKKI Vital Signs Vital signs: Vital Signs - 8 hr 07/20/21 11:51 07/20/21 15:58 Temperature 98.6 F Pulse Rate 87 74 Respiratory Rate 20 14 Blood Pressure 119/60 117/67 Pulse Oximetry 100 98 MDM - Back Pain/Injury <Dionicio Velázquez PA-C - Last Filed: 07/20/21 19:47> MDM Narrative Medical decision making narrative: Differential diagnosis to consider but not limited to acute on chronic low back pain versus sciatica versus disc herniation versus disc protrusion versus musculoskeletal low back pain verses cauda equinus syndrome. Physical examination was reassuring as there is no sign of deformity appreciated. Additionally, patient had good sensation throughout the bilateral lower extremities and was able to move the bilateral lower extremities to rule range of motion. She states that she is feeling significantly better following administration of oxycodone, Zofran, and Flexeril. I discussed plan to prescribe her a short course of pain medications to help alleviate her symptoms. Patient expresses understanding and agrees to plan. She states that this time she is comfortable being discharged home and is stable for discharge. Strict return precautions were discussed with the patient prior to discharge. Discharge Plan Departure Patient Disposition: Home Clinical Impression: Lower back pain, Bilateral sciatica Instructions: DI for Back Pain With Sciatica Activity Restrictions/Additional Instructions: *You have been diagnosed with low back pain, bilateral sciatica *What to do: *Please continue to take your regular medications as directed. [X] New medication prescriptions sent to your pharmacy: [facility] - Baclofen, Zofran [X] New medication written as a paper prescription: Oxycodone [ ] No new medications given You were evaluated in the emergency department today for low back pain and sciatica. I am glad we were able to get her pain under control. I have prescribed View with a short course pain medications (oxycodone) to alleviate your pain, please use these for only severe pain. I have sent prescriptions for a muscle relaxer (Baclofen) and a medication to help with nausea (Zofran) to your preferred pharmacy. Please follow-up with the primary care provider within the next 2-3 days for further evaluation. Please do not hesitate to return to the emergency department if you experience worsening back pain, numbness and tingling in the lower extremities, loss of bowel or bladder control, fever, or any other concerning symptoms. *Please follow up with your primary care provider in 2-3 days, call for an appointment. Let them know you were seen in the Emergency Department and that we ask that you be seen in follow up. We will electronically transmit a record of today's note if your PCP is in our system *If you do not have a primary care provider please contact the [facility] Resource line at [phone]. They will ask some questions about your medical history and help get you set up with a doctor in the community. *Return to Emergency Department if you should have any new, worsening or concerning symptoms, such as [fever greater than 101 F, shaking chills, worsening pain, persistent vomiting or other bothersome symptoms] Prescriptions: New ondansetron 4 mg tablet,disintegrating 4 mg PO Q8H PRN (Reason: nausea and vomiting) Qty: 20 0RF baclofen 10 mg tablet 10 mg PO TID Qty: 30 0RF oxycodone 5 mg tablet 5 mg PO BID PRN (Reason: pain) Qty: 15 0RF No Action lidocaine 5 % adhesive patch,medicated 1 patch TOP DAILY Qty: 15 1RF Rx Instructions: leave on most painful area for 12 hrs tramadol 50 mg tablet 50 mg PO BID PRN (Reason: pain) Qty: 30 1RF nortriptyline 25 mg capsule 25 mg PO BEDTIME MDD 2 tabs Qty: 60 2RF tizanidine 4 mg tablet 4 mg PO BID PRN (Reason: Muscle Spasm) 0RF Referrals: Kenny Wilkinson MD [Primary Care Provider] -
== END 2021-07-20 16:54 | disposition home or self-care (01) ==
PROVIDERS: Emergency Provider Physician Assistant; PCP Student in an Organized Health Care Education/Training Program
DX: M54.42 Lumbago with sciatica, left side (principal); M54.41 Lumbago with sciatica, right side
CPT/HCPCS: 99283

== ENCOUNTER → 2021-09-09 13:45 | Outpatient (CLI) | payer MEDICARE, OTHER, SELFPAY ==
[2021-09-09 14:32] LABS: COVID19 -Nasal RAPID Negative (Negative)
== END ==
PROVIDERS: PCP Student in an Organized Health Care Education/Training Program; Visit Provider Physical Medicine & Rehabilitation
DX: Z20.822 Contact with and (suspected) exposure to COVID-19 (principal)
CPT/HCPCS: 87635; C9803

== ENCOUNTER 2021-09-11 10:54 | Outpatient (CLI) | payer MEDICARE, OTHER, SELFPAY ==
[2021-09-11] VITALS (10 sets, daily range): BP systolic 97–117; BP diastolic 56–73; PULSE 56–77; RESP 11–19; TEMP 36.5; O2SAT 72–100
--- NOTE | 2021-09-11 11:30 | DI.RAD.S_ITS ---
PROCEDURE: PAIN L/S TRANSFORAM INJECT RACHEAL COMPARISON: [facility], XA, PAIN L/S TRANSFORAM INJECT RACHEAL, 12/31/2020, 8:50. [facility], CR, XR LUMBAR SPINE WITH FLEXION EXTENSION 5 VIEWS, 03/05/2021, 14:15. INDICATIONS: SPONDYLOSIS FINDINGS: Fluoroscopic spot filming was performed to verify placement of spinal needles on both sides at the L4-L5 level, as labeled on the films. Appropriate location of the needle tips was confirmed by injection of iodinated contrast. IMPRESSION: Intraprocedural examination demonstrating appropriate positions of the needles. Dictated by: Ang Duran M.D. on 09/11/2021 at 11:59 Approved by: Ang Duran M.D. on 09/11/2021 at 12:00
[2021-09-11] MEDS: MIDAZOLAM 5 MG/5 ML VIAL IV (12:09)
[2021-09-11] MEDS: BUPIVACAINE 0.25% (PF) VIAL 2 ML INJ (12:10)
[2021-09-11] MEDS: IOPAMIDOL 15 ML VIAL 3 ML INJ (12:11)
[2021-09-11] MEDS: DEXAMETHASONE 10 MG/ML VIAL 20 MG INJ (12:12)
[2021-09-11] MEDS: BETAMETHASONE 30 MG/5 ML MDV 12 MG INJ (12:12)
--- NOTE | 2021-09-11 12:24 | P.PCN_ITS ---
Date/Time/Diagnoses Date of procedure: 09/11/21 Time of procedure: 12:24 Pre-procedure diagnosis: 1. FORAMINAL STENOSIS WITH LE SYMPTOMS Procedure Notes Procedure: 1. FLUOROSCOPICALLY GUIDED CONTRAST CONTROLLED TRANSFORAMINAL EPIDURAL STEROID INJECTION - BILATERAL L4/5 TFESI Indications: Pauly is referred by Dr. Wilkinson for treatment of Foraminal Stenosis with bilateral LE Symptoms Physician: Neftali Tyler Total Fluoroscopy time (seconds): 17 Total sedation minutes: 18 Complications: none Procedure in detail & Post-procedure care: FINDINGS Foraminal Nerve Root Compression secondary to disc disease and facet hypertrophy DESCRIPTION OF PROCEDURE Following review of allergy and review of potential side effects and complications, including, but not necessarily limited to, infection, allergic reaction, local tissue breakdown, stroke, temporary or permanent nerve injury, paralysis, and possible , the patient indicated that the patient understood and agreed to proceed. An informed consent document was signed by the patient, witnessed by a nurse, and placed in the patient's chart. Additionally, other treatment options including medications, modalities, and physical therapy were reviewed with the patient. After review of previous anaesthesic history and IV conscious sedation the patient was deemed safe to proceed with today?s procedure with IV conscious sedation as ASA class II designation. Safety time-out was performed to confirm patient ID, procedure to be performed and site of procedure. IV sedation was accomplished with a combination of 5mg of Versed was administered by the RN after DO order, titrated to patient comfort during the course of the procedure while the patient remained responsive to all verbal commands In the prone position following sterile prep and drape of the lumbar region, the right L4/5 posterior neuroforamen was identified fluoroscopically. The skin was anesthetized via a 25-gauge 1.5-inch needle with 1% lidocaine solution. At this point, a 25-gauge 3.5-inch spinal needle was atraumatically introduced and advanced under fluoroscopic guidance through the posterior right L4/5 neuroforamen to approximately the anterior aspect of the canal. Depth was confirmed on lateral view. Following negative aspiration, injection of approximately 1.5cc of Isovue 200 under live fluoroscopy in the AP view confirmed excellent flow along the nerve root, into the epidural space without vascular or intrathecal uptake observed Radiological data, including multiple fluoroscopic views of the lumbosacral spine, reveal a spinal needle at the right L4/5 posterior neuroforamen. Subsequent views show flow of contrast material flowing superiorly and inferiorly along the nerve root confirming epidural flow. Subsequently, a test dose of 1.5cc of 1% lidocaine solution was administered and patient was observed for two minutes for signs or symptoms of complications, including abdominal pain, shortness of breath, bilateral upper or lower extremity weakness, nausea and vomiting, prior to steroid injection. At this point, a total of 3cc or 20mg of dexamethasone and 6mg betamethasone was injected without incident. Attention was then refocused to the left L4/5 level where the identical procedure was replicated. The procedure tolerated the procedure well without signs or symptoms of complications prior to transfer to the recovery area continued monitoring with out incident. The patient was then transferred to the recovery area where they were observed for an appropriate time after the injection. The patient reported a VAS score of 7 prior to the procedure and a post-procedure VAS of 0. POST OP INSTRUCTIONS The patient was provided a Pain Log to continue to record their response to the target-specific procedure prior to follow-up visit with their referring physician. Additionally, specific post-injection care instructions and a contact number to our office were provided if concerns arise regarding possible complications associated with the procedure are suspected.
== END 2021-09-11 12:45 | disposition home or self-care (01) ==
LOC: RAD 10:56
PROVIDERS: PCP Student in an Organized Health Care Education/Training Program; Referring Provider Physical Medicine & Rehabilitation; Visit Provider Physical Medicine & Rehabilitation
DX: M51.16 Intervertebral disc disorders with radiculopathy, lumbar region (principal); M48.061 Spinal stenosis, lumbar region without neurogenic claudication
CPT/HCPCS: 64483; 99152; J0702; J1100; J2250

== ENCOUNTER 2021-11-11 07:42 | Outpatient (CLI) | payer MEDICARE, OTHER, SELFPAY ==
[2021-11-11] VITALS (9 sets, daily range): BP systolic 83–127; BP diastolic 58–75; PULSE 70–81; RESP 10–20; TEMP 37; O2SAT 97–100
--- NOTE | 2021-11-11 07:44 | DI.RAD.S_ITS ---
PROCEDURE: PAIN L/S TRANSFORAMINAL INJECT INDICATIONS: SPONDYLOSIS COMPARISON: None. FINDINGS: Fluoroscopic spot filming was performed to verify placement of spinal needles at the left L4-L5 neural foramen level(s), as labeled on the films. Appropriate location(s) of the needle tip(s) was confirmed by injection of iodinated contrast. IMPRESSION: [place] needle at the left L4-L5 neural foramen for transforaminal epidural steroid injection Dictated by: Cris Stevenson MD, PhD on 11/11/2021 at 13:23 Approved by: Cris Stevenson MD, PhD on 11/11/2021 at 13:24
[2021-11-11 08:57] LABS: COVID19 -Nasal RAPID Negative (Negative)
[2021-11-11] MEDS: MIDAZOLAM 2 MG/2 ML VIAL 4 MG IV (09:11)
[2021-11-11] MEDS: IOPAMIDOL 15 ML VIAL 3 ML INJ (09:14)
[2021-11-11] MEDS: BUPIVACAINE 0.25% (PF) VIAL 2 ML INJ (09:14)
[2021-11-11] MEDS: BETAMETHASONE 30 MG/5 ML MDV 6 MG INJ (09:15)
[2021-11-11] MEDS: DEXAMETHASONE 10 MG/ML VIAL 20 MG INJ (09:15)
--- NOTE | 2021-11-11 09:26 | P.PCN_ITS ---
Date/Time/Diagnoses Date of procedure: 11/11/21 Time of procedure: 09:27 Pre-procedure diagnosis: 1. FORAMINAL STENOSIS WITH LE SYMPTOMS Post-procedure diagnosis: same Procedure Notes Procedure: 1. FLUOROSCOPICALLY GUIDED CONTRAST CONTROLLED TRANSFORAMINAL EPIDURAL STEROID INJECTION - LEFT L4/5 Indications: Pauly is referred by Dr. Wilkinson for treatment of Foraminal Stenosis with Left LE Symptoms Physician: Neftali Tyler Total Fluoroscopy time (seconds): 10 Total sedation minutes: 12 Complications: none Procedure in detail & Post-procedure care: FINDINGS Foraminal Nerve Root Compression secondary to disc disease and facet hypertrophy DESCRIPTION OF PROCEDURE Following review of allergy and review of potential side effects and complications, including, but not necessarily limited to, infection, allergic reaction, local tissue breakdown, stroke, temporary or permanent nerve injury, paralysis, and possible , the patient indicated that the patient understood and agreed to proceed. An informed consent document was signed by the patient, witnessed by a nurse, and placed in the patient's chart. Additionally, other treatment options including medications, modalities, and physical therapy were reviewed with the patient. After review of previous anaesthesic history and IV conscious sedation the patient was deemed safe to proceed with today?s procedure with IV conscious sedation as ASA class II designation. Safety time-out was performed to confirm patient ID, procedure to be performed and site of procedure. IV sedation was accomplished with a combination of 4mg of Versed administered by the RN after DO order, titrated to patient comfort during the course of the procedure while the patient remained responsive to all verbal commands In the prone position following sterile prep and drape of the lumbar region, the left L4/5 posterior neuroforamen was identified fluoroscopically. The skin was anesthetized via a 25-gauge 1.5-inch needle with 1% lidocaine solution. At this point, a 25-gauge 3.5-inch spinal needle was atraumatically introduced and advanced under fluoroscopic guidance through the posterior left L4/5 neuroforamen to approximately the anterior aspect of the canal. Depth was confirmed on lateral view. Following negative aspiration, injection of approximately 1.5 cc of Isovue 200 under live fluoroscopy in the AP view confirmed excellent flow along the nerve root, into the epidural space without vascular or intrathecal uptake observed Radiological data, including multiple fluoroscopic views of the lumbosacral spine, reveal a spinal needle at the left L4/5 posterior neuroforamen. Subsequent views show flow of contrast material flowing superiorly and inferiorly along the nerve root confirming epidural flow. Subsequently, a test dose of 1.5 cc of 1% lidocaine solution was administered and patient was observed for two minutes for signs or symptoms of complications, including abdominal pain, shortness of breath, bilateral upper or lower extremity weakness, nausea and vomiting, prior to steroid injection. At this point, a total of 3cc or 20mg of dexamethasone and 6mg of betamethasone was injected without incident. The procedure tolerated the procedure well without signs or symptoms of complications prior to transfer to the recovery area continued monitoring without incident. The patient was then transferred to the recovery area where they were observed for an appropriate time after the injection. The patient reported a VAS score of 7 prior to the procedure and a post- procedure VAS of 0. POST OP INSTRUCTIONS The patient was provided a Pain Log to continue to record their response to the target-specific procedure prior to follow-up visit with their referring physician. Additionally, specific post-injection care instructions and a contact number to our office were provided if concerns arise regarding possible complications associated with the procedure are suspected.
== END 2021-11-11 09:43 | disposition home or self-care (01) ==
LOC: RAD 07:44
PROVIDERS: PCP Student in an Organized Health Care Education/Training Program; Referring Provider Physical Medicine & Rehabilitation; Visit Provider Physical Medicine & Rehabilitation
DX: M48.061 Spinal stenosis, lumbar region without neurogenic claudication (principal); M51.16 Intervertebral disc disorders with radiculopathy, lumbar region; Z20.822 Contact with and (suspected) exposure to COVID-19
CPT/HCPCS: 64483; 87635; 99152; J0702; J1100; J2250

== ENCOUNTER → 2022-02-21 09:48 | Outpatient (CLI) | payer MEDICARE, OTHER, SELFPAY ==
--- NOTE | 2022-02-21 | DI.MG.S_ITS ---
BILATERAL DIGITAL SCREENING MAMMOGRAM 3D/2D WITH CAD: 02/21/2022 CLINICAL: Routine screening. Family history of breast cancer. Comparison is made to exams dated: 10/21/2020 mammogram, 08/09/2018 mammogram, and 12/17/2006 mammogram - [facility]. Both breasts are extremely dense, which lowers the sensitivity of mammography (category d />75% glandular tissue). Current study was also evaluated with a Computer Aided Detection (CAD) system. There are benign vascular calcifications in both breasts. No significant masses, calcifications, or other findings are seen in either breast. IMPRESSION: BENIGN There is no mammographic evidence of malignancy. A 1 year screening mammogram is recommended. Based on the Tyrer Cuzick model (a risk assessment model) the patient's lifetime risk is 8.7% and her 10 year risk is 2.1%. According to the ACR, ACS, and NCCN guidelines, an annual breast MRI exam along with mammogram is recommended if the patient's lifetime risk is 20% or greater. This exam was interpreted at Station ID: [id number]. NOTE: For mammograms, a report in lay terms will be sent to the patient. Approximately 15% of breast malignancies will not be visualized mammographically. In the management of a palpable breast mass, a negative mammogram must not discourage biopsy of a clinically suspicious lesion. Electronically Signed By: Sabino [email or web address]/[email or web address]:02/23/2022 11:11:22 letter sent: Normal Exam ACR BI-RADS Category 2: Benign Finding(s) [id number]
== END ==
PROVIDERS: PCP Student in an Organized Health Care Education/Training Program; Referring Provider Student in an Organized Health Care Education/Training Program; Visit Provider Student in an Organized Health Care Education/Training Program
DX: Z12.31 Encounter for screening mammogram for malignant neoplasm of breast (principal); Z80.3 Family history of malignant neoplasm of breast
CPT/HCPCS: 77063; 77067

== ENCOUNTER 2022-03-10 12:53 | Emergency (ER) | payer MEDICARE, OTHER, SELFPAY ==
[2022-03-10] VITALS (8 sets, daily range): BP systolic 110–127; BP diastolic 52–71; PULSE 56–79; RESP 14–30; TEMP 36.6; O2SAT 96–100; BMI 19.1
[2022-03-10 14:09] LABS: Bacteria Urine None Seen; Culture Indicated Urine Cult Not Indicated; RBC Urine 1-5/HPF (0-5/HPF); WBC Urine None Seen (0-5/HPF)
[2022-03-10 15:22] LABS: Add Manual Diff / Slide Review NO; Basophils Absolute Auto 100 /uL (0-100); Eosinophils Absolute Auto 100 /uL (0-450); Eosinophils Percent Auto 0.9 % (2-4); Hemoglobin 14.8 g/dL (12.0-16.0); Lymphocytes Absolute Auto 2900 /uL (1100-4500); Lymphocytes Percent Auto 44.8 % (25-40); Mean Corpuscular HGB Conc 33.7 % (30-36); Mean Corpuscular Hemoglobin 30.8 PG (26-34); Mean Corpuscular Volume 91.4 fL (80-100); Monocytes Absolute Auto 300 /uL (0-900); Monocytes Percent Auto 4.7 % (3-14); Neutrophils Absolute Auto 3100 /uL (1500-7000); Neutrophils Percent Auto 48.6 % (50-75); Platelet Count 275 X10^3/uL (150-400); Red Blood Cell Count 4.82 X10^6/uL (4.0-5.2); Red Cell Distribution Width 12.8 % (11.6-14.8); White Blood Cell Count 6.4 X10^3/uL (4.5-11.0)
[2022-03-10 16:02] LABS: Alanine Aminotransferase 19 IU/L (<35); Albumin 4.7 g/dL (3.5-5.0); Albumin Globulin Ratio 1.6 (1.0-2.8); Alkaline Phosphatase 91 U/L (38-126); Aspartate Aminotransferase 21 IU/L (14-36); BUN Creatinine Ratio 9.5 (6-22); Bilirubin Total 0.5 mg/dL (0.2-1.3); Blood Urea Nitrogen 7 mg/dL (7-17); Calcium 9.4 mg/dL (8.4-10.2); Carbon Dioxide 28 mmol/L (22-32); Chloride 105 mmol/L (98-107); Estimated Glomerular Filt Rate > 60 mL/min (>60); Glucose 92 mg/dL (70-100); HEMOLYSIS < 15 (0-50); Lipase 66 U/L (23-300); Potassium 3.8 mmol/L (3.4-5.1); Sodium 142 mmol/L (137-145); Total Protein 7.7 g/dL (6.3-8.2)
--- NOTE | 2022-03-10 17:55 | DI.CT.S_ITS ---
PROCEDURE: CT ABDOMEN PELVIS W CON INDICATIONS: LLQ pain TECHNIQUE: After the administration of intravenous contrast, axial sections acquired from the lung bases to the pubic symphysis. Coronal and sagittal reformats were performed. For radiation dose reduction, the following was used: automated exposure control, adjustment of mA and/or kV according to patient size. COMPARISON: [facility], CT, CT ABDOMEN PELVIS W CON, 04/26/2018, 16:08. FINDINGS: Image quality: Excellent. Lung bases: Lung bases are clear. Heart size is normal. Solid organs: Liver: The liver has no mass or intrahepatic biliary ductal dilatation. The portal vein and hepatic veins are patent. Biliary: The gallbladder has no gallstones, pericholecystic fluid, gallbladder wall thickening, or surrounding inflammatory change. Pancreas: The pancreas has no mass or ductal dilatation. There is no surrounding inflammation. Spleen: Normal size. There are no masses. Adrenals: No hypertrophy or nodules. Kidneys: No obstructive calculus or hydronephrosis. No solid mass. No cystic mass. Peritoneum and bowel: The distal esophagus and stomach are normal. The small bowel has a normal caliber and appearance. The terminal ileum is normal. The large bowel has a normal caliber and appearance. The appendix is normal. No free fluid or air. Nodes and vessels: No retroperitoneal or mesenteric adenopathy by size criteria. The aorta has atherosclerosis with no aneurysmal dilatation. Miscellaneous: No abdominal wall mass or hernia. A stimulator device is seen in the lower back with leads extending into the thoracic spine. PELVIS: Genitourinary: The bladder has no wall thickening or mass. No bladder calcifications. Bones: No suspicious bony lesions. No vertebral body compression fractures. IMPRESSION: No acute abdominal or pelvic abnormality. Dictated by: Romero Da Silva M.D. on 03/10/2022 at 18:48 Approved by: Romero Da Silva M.D. on 03/10/2022 at 18:52
[2022-03-10] MEDS: MORPHINE 4 MG/ML INJ IV (18:18)
--- NOTE | 2022-03-16 20:32 | ED.ABDPAIN ---
HPI - Abdominal Pain General Chief Complaint: Abdominal Pain Stated Complaint: lower lf abd pain 4hours Time Seen by Provider: 03/10/22 17:24 Mode of arrival: Family Vehicle History of Present Illness HPI narrative: 51-year-old female with past medical history of interstitial cystitis, hyperlipidemia presents to the ED with 4 hours of left lower quadrant pain. Patient has a spinal stimulator for back pain. Patient denies fever, chills, chest pain, shortness of breath, nausea, vomiting, diarrhea, constipation, lightheadedness, dizziness, syncope. Related Data Home Medications Medication Instructions Recorded Confirmed baclofen 10 mg tablet 10 mg PO TID 01/14/22 01/14/22 tizanidine 4 mg capsule 4 mg PO BID PRN 01/14/22 01/14/22 Previous Rx's Medication Instructions Recorded pregabalin 75 mg capsule (Lyrica) 75 mg PO BID #60 caps 10/27/21 Allergies Allergy/AdvReac Type Severity Reaction Status Date / Time cephalexin [From KEFLEX] Allergy Severe DRY HEAVES Verified 01/14/22 15:22 adhesive tape AdvReac Mild Rash Verified 01/14/22 15:22 Review of Systems Review of Systems ROS Unobtainable: All systems reviewed & are unremarkable except as noted in HPI and below Constitutional Constitutional: Denies chills, Denies fatigue, Denies fever(s), Denies frequent falls, Denies lethargy and Denies weakness Eyes Eyes: Denies change in vision, Denies eye discharge, Denies irritation and Denies loss of vision ENT Ears, Nose, Mouth, and Throat: Denies change in voice, Denies dizziness, Denies neck pain, Denies sore throat and Denies throat swelling Cardiovascular Cardiovascular: Denies chest pain, Denies irregular heart rhythm, Denies lightheadedness, Denies palpitations, Denies dyspnea, Denies dyspnea on exertion and Denies orthopnea Respiratory Respiratory: Denies cough, Denies dyspnea, Denies dyspnea on exertion and Denies wheezing Gastrointestinal Gastrointestinal: Reports abdominal pain, Denies change in bowel habits, Denies diarrhea, Denies nausea and Denies vomiting Genitourinary Genitourinary: Denies hematuria, Denies flank pain, Denies urinary incontinence and Denies urinary urgency Musculoskeletal Musculoskeletal: Denies back pain, Denies muscle weakness, Denies neck pain, Denies numbness and Denies tingling Integumentary/Breasts Skin/Breast: Denies pruritus, Denies erythema, Denies rash and Denies wounds Neurologic Neurologic: Denies behavioral changes, Denies confusion, Denies dizziness, Denies frequent falls, Denies loss of vision, Denies numbness, Denies tingling and Denies weakness Psychiatric Psychiatric: Denies anxiety, Denies behavioral changes, Denies confusion, Denies depression, Denies homicidal ideation and Denies suicidal ideation Endocrine Endocrine: Denies fatigue, Denies flushing and Denies palpitations Hematologic/Lymphatic Hematologic/Lymphatic: Denies easy bruising Allergic/Immunologic Allergic/Immunologic: Denies urticaria, Denies throat swelling and Denies wheezing Patient History Medical History Arthritis DDD (degenerative disc disease) GERD (gastroesophageal reflux disease) Greater trochanteric bursitis of right hip Herniated nucleus pulposus, lumbar Hiatal hernia Hx of multiple pulmonary nodules Hx of temporomandibular joint disorder Impingement syndrome of left shoulder Interstitial cystitis Lumbar radiculopathy Ovarian cyst Tibia/fibula fracture TMJ arthritis Surgical History History of breast biopsy History of hysterectomy History of surgical removal of nipple History of tonsillectomy S/P bilateral salpingo-oophorectomy (09/09/18) S/P laparoscopic procedure (09/09/18) Status post epidural steroid injection Family History Family/Other Family history not known due to adoption Social History marital status: household members: spouse occupational status: employed Smoking Status: Current every day smoker alcohol intake: never substance use type: does not use additional social history: Adopted Smoking Status: Current every day smoker tobacco type: cigarettes alcohol intake frequency: a few times a month Substance Use Type: marijuana Exam Narrative Exam Narrative: Const General:?cooperative, healthy appearing and comfortable [facility] Head:?normal to inspection Ears:?hearing grossly normal bilaterally Nose:?external nose normal Face and sinus:?normal facial exam and sinuses nontender Mouth:?oral mucosae normal Throat:?posterior oropharynx normal Eyes General:?appearance normal, both eyes and all related structures Neck Neck:?normal visual inspection and no lymphadenopathy noted Resp Effort & Inspection:?normal respiratory effort Auscultation:?clear to auscultation bilaterally Cardio Rate:?regular rate Rhythm:?regular rhythm GI Abdomen is soft, nondistended, tender to palpation in the left lower quadrant. No CVA tenderness. Neuro General:?patient alert, patient awake and patient oriented x3 Initial Vital Signs Initial Vital Signs: Vital Signs Temperature 97.9 F 03/10/22 12:56 Pulse Rate 79 03/10/22 12:56 Respiratory Rate 18 03/10/22 12:56 Blood Pressure 127/71 03/10/22 12:56 Pulse Oximetry 100 03/10/22 12:56 Oxygen Delivery Method 03/10/22 12:56 Course Orders Ordered: Discontinued Medications Morphine Sulfate (Morphine 4 Mg/Ml Inj) 4 mg IV NOW ONE Stop: 03/10/22 17:56 Last Admin: 03/10/22 18:18 Dose: 4 mg Documented By: PHILLIP MDM - Abdominal Pain Lab Data Result diagrams: 03/10/22 15:09 03/10/22 15:09 Labs: Lab Results 03/10/22 03/10/22 03/10/22 Range/Units 13:34 15:09 15:09 WBC 6.4 (4.5-11.0) X10^3/uL RBC 4.82 (4.0-5.2) X10^6/uL Hgb 14.8 (12.0-16.0) g/dL Hct 44.0 (36-46) % MCV 91.4 (80-100) fL MCH 30.8 (26-34) PG MCHC 33.7 (30-36) % RDW 12.8 (11.6-14.8) % Plt Count 275 (150-400) X10^3/uL Neut % (Auto) 48.6 L (50-75) % Lymph % (Auto) 44.8 H (25-40) % [place] % (Auto) 4.7 (3-14) % Eos % (Auto) 0.9 L (2-4) % Baso % (Auto) 1.0 (0-2) % Neut # (Auto) 3100 (2447-6643) /uL Lymph # (Auto) 2900 (3896-7087) /uL [place] # (Auto) 300 (0-900) /uL Eos # (Auto) 100 (0-450) /uL Baso # (Auto) 100 (0-100) /uL Sodium 142 (137-145) mmol/L Potassium 3.8 (3.4-5.1) mmol/L Chloride 105 (98-107) mmol/L Carbon Dioxide 28 (22-32) mmol/L BUN 7 (7-17) mg/dL Creatinine 0.74 (0.52-1.04) mg/dL Estimated GFR > 60 (>60) mL/min BUN/Creatinine Ratio 9.5 (6-22) Glucose 92 (70-100) mg/dL Calcium 9.4 (8.4-10.2) mg/dL Total Bilirubin 0.5 (0.2-1.3) mg/dL AST 21 (14-36) IU/L ALT 19 (<35) IU/L Alkaline Phosphatase 91 (38-126) U/L Total Protein 7.7 (6.3-8.2) g/dL Albumin 4.7 (3.5-5.0) g/dL Globulin 3.0 (1.7-4.1) g/dL Albumin/Globulin Ratio 1.6 (1.0-2.8) Lipase 66 (23-300) U/L Urine RBC 1-5/hpf (0-5/HPF) Urine WBC None seen (0-5/HPF) Urine Bacteria None seen (None) Ur Culture Indicated? Cult not indicated Point of care testing: Urine Dip Bedside Urine Glucose Negative Bedside Urine Bilirubin - Negative Bedside Urine Ketone - Negative Urine Specific [place] 1.005 Bedside Urine Occult Blood ++ Bedside Urine pH 7.5 Bedside Urine Protein - Negative Bedside Urine Urobilinogen - Negative Bedside Urine Nitrite - Negative Bedside Urine Leukocytes - Negative Esterase Imaging Data CT scan - abdomen/pelvis: Radiologist's Impression: PROCEDURE:? CT ABDOMEN PELVIS W CON ? INDICATIONS:? LLQ pain ? TECHNIQUE:? After the administration of intravenous contrast, axial sections acquired from the lung bases to the pubic symphysis.? Coronal and sagittal reformats were performed.? For radiation dose reduction, the following was used:? automated exposure control, adjustment of mA and/or kV according to patient size.? ? COMPARISON:? [facility], CT, CT ABDOMEN PELVIS W CON, 04/26/2018, 16:08. ? FINDINGS: Image quality:? Excellent.? ? Lung bases:? Lung bases are clear.? Heart size is normal. ? Solid organs:? Liver: The liver has no mass or intrahepatic biliary ductal dilatation. The portal vein and hepatic veins are patent. Biliary: The gallbladder has no gallstones, pericholecystic fluid, gallbladder wall thickening, or surrounding inflammatory change. Pancreas: The pancreas has no mass or ductal dilatation. There is no surrounding inflammation. Spleen: Normal size. There are no masses. Adrenals: No hypertrophy or nodules. Kidneys: No obstructive calculus or hydronephrosis.? No solid mass. No cystic mass. ? Peritoneum and bowel:? The distal esophagus and stomach are normal.? The small bowel has a normal caliber and appearance. The terminal ileum is normal. The large bowel has a normal caliber and appearance.? The appendix is normal. No free fluid or air.? ? Nodes and vessels:? No retroperitoneal or mesenteric adenopathy by size criteria.? The aorta has atherosclerosis with no aneurysmal dilatation.? ? Miscellaneous:? No abdominal wall mass or hernia.? A stimulator device is seen in the lower back with leads extending into the thoracic spine. ? PELVIS:? Genitourinary:? The bladder has no wall thickening or mass. No bladder calcifications. ? Bones:? No suspicious bony lesions.? No vertebral body compression fractures.? ? IMPRESSION: No acute abdominal or pelvic abnormality.? ? Dictated by: Romero Da Silva M.D. on 03/10/2022 at 18:48 ? ? Approved by: Romero Da Silva M.D. on 03/10/2022 at 18:52 ? MDM Narrative Medical decision making narrative: 51-year-old female with past medical history of interstitial cystitis, hyperlipidemia presents to the ED with 4 hours of left lower quadrant pain. Concern for diverticulitis versus UTI versus nephrolithiasis versus other intra-abdominal pathology. Will obtain labs, lactate, lipase, CT abdomen pelvis. Will reassess. Will give morphine for pain. Will reassess. Workup unremarkable. CT, labs, urine without acute findings. Discussed with patient. ED return precautions were discussed with patient. Patient verbalized understanding. Discharge Plan Departure Patient Disposition: Home Clinical Impression: Abdominal pain Instructions: DI for Abdominal Pain-Adult Activity Restrictions/Additional Instructions: You were evaluated in the ED today for abdominal pain. Your labs, urine, CT abdomen pelvis did not show any acute findings. It is unclear why you were having these symptoms. Your symptoms responded well to morphine. We recommend you monitor your symptoms, take Tylenol, ibuprofen. You may also follow-up with your PCP as soon as possible. Please return to the ED at any time if symptoms worsen. Prescriptions: No Action baclofen 10 mg tablet 10 mg PO TID tizanidine 4 mg capsule 4 mg PO BID PRN pregabalin [Lyrica] 75 mg capsule 75 mg PO BID Qty: 60 1RF Referrals: Kenny Wilkinson MD [Primary Care Provider] - Visit Report Forms: Patient Portal/API
== END 2022-03-10 19:38 | disposition home or self-care (01) ==
PROVIDERS: Family Medicine Addiction Medicine; Emergency Provider Student in an Organized Health Care Education/Training Program; PCP Student in an Organized Health Care Education/Training Program
DX: R10.32 Left lower quadrant pain (principal)
CPT/HCPCS: 36415; 74177; 80053; 81003; 81015; 83690; 85025; 93005; 96374; 99284; J2270; Q9967

== ENCOUNTER → 2022-03-13 14:41 | Outpatient (CLI) | payer MEDICARE, OTHER, SELFPAY ==
--- NOTE | 2022-03-13 14:43 | DI.CT.S_ITS ---
PROCEDURE: CT LUMBAR SPINE WO CON INDICATIONS: LBP, Post Lami and Spinal cord stim placement TECHNIQUE: Noncontrast 3 mm thick sections acquired from the T12 level to the sacrum. Sagittal and coronal reformats were constructed. For radiation dose reduction, the following was used: automated exposure control. COMPARISON: [facility], CT, CT LUMBAR SPINE WITHOUT CONTRAST, 01/16/2021, 17:02. [facility], CT, CT ABDOMEN PELVIS W CON, 03/10/2022, 18:00. [facility], CR, XR LUMBAR SPINE MIN 4V, 03/13/2022, 14:47. FINDINGS: Image quality: Excellent. Bones: There is normal bony alignment. No acute vertebral body compression fractures. No suspicious lytic or blastic bony lesions. No pars defects. Pectus excavatum deformity is partially seen. There is a thoracic spine stimulator seen, with the power pack seen on the left, with the leads entering from posteriorly at the L2-L3 level. The lead tips are off of the field of view of this study. T12-L1: Normal. L1-L2: Normal. L2-L3: The disc height is well preserved. Mild disc bulge is seen. No significant neural foraminal or central canal narrowing can be seen. When comparison is made with the prior images, these findings are similar. L3-L4: The disc height is well preserved. Mild to moderate disc bulge is seen, which is eccentric to the left. No significant neural foraminal or central canal narrowing can be seen. No significant change from the prior. L4-L5: Mild loss of disc height is seen. Moderate generalized disc bulge is seen. There is a superimposed central disc protrusion. Mild facet joint hypertrophy is seen. There is at least moderate bilateral neural foraminal narrowing seen. Mild central canal narrowing is seen. When comparison is made with the prior images, these findings are similar. L5-S1: The disc height is well preserved. Mild generalized disc bulge is seen. Moderate facet joint hypertrophy is seen. No significant neural foraminal or central canal narrowing can be seen. When comparison is made with the prior images, these findings are similar. Soft tissues: No retroperitoneal masses or hematomas. Visualized aorta is normal in caliber. Atherosclerotic calcification is noted. IMPRESSION: Mild degenerative changes are seen, which are similar to the prior. These are worst at the L4-L5 level. Unremarkable thoracic stimulator leads noted. Dictated by: Ang Duran M.D. on 03/13/2022 at 15:43 Approved by: Ang Duran M.D. on 03/13/2022 at 15:48
--- NOTE | 2022-03-13 14:43 | DI.RAD.S_ITS ---
PROCEDURE: XR LUMBAR SPINE MIN 4V INDICATIONS: BACK PAIN TECHNIQUE: 5 views of the lumbar spine acquired, including flexion and extension views. COMPARISON: [facility], CR, XR LUMBAR SPINE 2-3V, 08/22/2020, 15:17. FINDINGS: Bones: 5 nonrib-bearing vertebrae are present. 2 mm retrolisthesis L2-L3, L3-L4 and-L5. Mild multilevel disc height loss with endplate sclerosis and spurring, most notably at the L4-L5 and L5-S1 levels. Mild L4-L5 and L5-S1 facet joint arthropathy. No vertebral body compression fractures. No suspicious bony lesions. Soft tissues: Overlying bowel gas pattern is normal. No suspicious soft tissue calcifications. Neural stimulator pulse generator and catheter is present with the catheter tip at the T9-T10 level. IMPRESSION: Mild multilevel spondylosis, most notably at the L4-L5 and L5-S1 levels. Dictated by: Manuel Jefferson RRA Interpreted: Aureliano Norman MD on 03/13/2022 at 15:38 Transcribed by: SIMRAN on 03/13/2022 at 15:39 Approved by: Aureliano Norman M.D. on 03/13/2022 at 19:45
== END ==
PROVIDERS: PCP Student in an Organized Health Care Education/Training Program; Referring Provider Physical Medicine & Rehabilitation; Visit Provider Physical Medicine & Rehabilitation
DX: M47.26 Other spondylosis with radiculopathy, lumbar region (principal); M47.27 Other spondylosis with radiculopathy, lumbosacral region
CPT/HCPCS: 72110; 72131

== ENCOUNTER 2022-05-27 07:55 | Outpatient (CLI) | payer MEDICARE, OTHER, SELFPAY ==
[2022-05-27] VITALS (11 sets, daily range): BP systolic 89–113; BP diastolic 48–73; PULSE 66–85; RESP 14–18; TEMP 36.4–36.7; O2SAT 94–100; BMI 19.3
--- NOTE | 2022-05-27 | DI.CT.S_ITS ---
PROCEDURE: CT LUMBAR MYELOGRAM INDICATIONS: Spondylosis without myelopathy or radiculopathy, lumbar lupillo TECHNIQUE: After the intrathecal administration of 15 mL intrathecal contrast, 3 mm thick sections acquired from T12 to the sacrum. Sagittal and coronal reformats were then constructed. For radiation dose reduction, the following was used: automated exposure control. COMPARISON: [facility], CT, CT LUMBAR SPINE WO CON, 03/13/2022, 15:08. MR, L-SPINE W&WO CONTRAST, 01/12/2013, 17:16. FINDINGS: Image quality: Excellent. Bones: There is no visualized fracture or dislocation. There is trace retrolisthesis of L2 on L3. Minimal to mild disc space narrowing is present L4-5, L5-S1. No suspicious osseous lesions. The conus ends at L1. There is a partially visualized nerve stimulator extending to the level of T10. Minimal disc bulges are present at L2-3, L3-4, mild L4-5 and minimal L5-S1. There is appearance of small superimposed posterior central protrusion at L4-5. Minimal L4-5 spinal stenosis. Moderate bilateral foraminal narrowing is present at L4-5. Overall changes are stable compared to prior exam. Miscellaneous: Nerve roots appear unremarkable throughout. No nerve root clumping to suggest arachnoiditis. IMPRESSION: Stable interval exam demonstrating disc bulges most prominent at L4-5. Foraminal narrowing is most prominent L5-S1. Dictated by: Leola Harris M.D. on 05/27/2022 at 11:29 Approved by: Leola Harris M.D. on 05/27/2022 at 13:56
--- NOTE | 2022-05-27 | DI.RAD.S_ITS ---
PROCEDURE: FL MYELOGRAM SPINE LUMBOSACRAL INDICATIONS: LUMBAR SPONDYLOSIS COMPARISON: [facility], CT, CT LUMBAR MYELOGRAM, 05/27/2022, 10:11. TECHNIQUE: The indications, alternatives, benefits, risks and complications of the procedure were explained to the patient. Written informed consent was obtained and placed in the chart. The patient was placed in a prone position on the fluoroscopy table, and a level was chosen for percutaneous access under fluoroscopic guidance. The skin was prepped and draped in a sterile fashion. After local anaesthetic, a spinal needle was then used to enter the intrathecal space, with return of clear cerebrospinal fluid. 15 mL of Isovue M-200 were administered intrathecally under fluoroscopic visualization. The needle was then withdrawn, and a bandage applied to the puncture site. Fluoroscopic spot films were then acquired in various positions. FINDINGS: Standing frontal, lateral, and oblique views demonstrate no significant central canal stenoses. Spine generator device with leads projecting cephalad. Access level: L4-L5. Medications: 1% lidocaine for local anaesthesia. Complications: None. Patient was transferred to CT for subsequent CT myelogram. IMPRESSION: Successful fluoroscopically guided administration of iodinated contrast into the lumbar spine central canal for CT myelogram. Dictated by: Ashish Lira M.D. on 05/27/2022 at 14:05 Approved by: Ashish Lira M.D. on 05/27/2022 at 14:07
--- NOTE | 2022-05-27 | DI.RAD.S_ITS ---
PROCEDURE: XR T AND L SPINE 4 TO 5 VIEWS INDICATIONS: LUMBAR SPONDYLOSIS TECHNIQUE: 2 views acquired of the thoracolumbar spine. COMPARISON: CT lumbar spine 03/13/2022, CT myelogram 05/27/2022. FINDINGS: Bones: No acute fractures or dislocations. Visualized inferior ribs appear intact. No suspicious bony lesions. No significant scoliosis. Minimal degenerative changes are seen in the lumbar spine. Soft tissues: No suspicious soft tissue calcifications. Spinal stimulator leads are seen projecting over the lower thoracic and lumbar spine. A full strain area is seen in the left lower back. IMPRESSION: No significant scoliosis. Minimal spondylosis. Approved by: Jewel Bo M.D. on 05/27/2022 at 13:22
[2022-05-27] MEDS: fentaNYL 100 MCG/2 ML INJ 25 MCG IV (10:01)
[2022-05-27] MEDS: MIDAZOLAM 2 MG/2 ML VIAL 1.5 MG IV (10:13)
== END 2022-05-27 12:38 | disposition home or self-care (01) ==
PROVIDERS: PCP Student in an Organized Health Care Education/Training Program; Referring Provider Neurological Surgery; Visit Provider Neurological Surgery
DX: M47.816 Spondylosis without myelopathy or radiculopathy, lumbar region (principal)
CPT/HCPCS: 72083; 72133; 72265; J2250; J3010

== ENCOUNTER → 2022-06-09 15:19 | Outpatient (CLI) | payer MEDICARE, OTHER, SELFPAY ==
[2022-06-09 17:10] LABS: Influenza A - CEPHEID Flu A POSITIVE (NEGATIVE); Influenza B - CEPHEID Flu B NEGATIVE (NEGATIVE); Respiratory Syncytial Virus Negative (Negative)
[2022-06-09 17:13] LABS: COVID-19 CEPHEID 4-PLEX PCR Negative (Negative)
== END ==
PROVIDERS: PCP Student in an Organized Health Care Education/Training Program; Visit Provider Nurse Practitioner Family
DX: R53.83 Other fatigue (principal); R05.1 Acute cough; Z20.822 Contact with and (suspected) exposure to COVID-19
CPT/HCPCS: 0241U

== ENCOUNTER 2022-06-29 10:00 | Emergency (ER) | payer MEDICARE, OTHER, SELFPAY ==
[2022-06-29 10:20] VITALS: BP 121/68; PULSE 92; RESP 14; TEMP 36.7; O2SAT 99
--- NOTE | 2022-06-29 10:30 | ED.FALL ---
HPI - Fall General Chief Complaint: Fall Stated Complaint: fell thinks she broke her tailbone Time Seen by Provider: 06/29/22 10:04 Source: patient and family Mode of arrival: Wheelchair History of Present Illness HPI Narrative: 52-year-old female smoker with history of chronic back pain presents with significant other and a chief complaint of tailbone pain. She states that she had been in her normal state of health and got up at about 2 or 3:00 a.m. in the morning and after standing up from the toilet became lightheaded and fell to the ground landing on her tailbone. She denies any head neck or back pain otherwise. She denies any trouble controlling bowel or bladder. She does not have pain that radiates down her legs and denies any numbness, tingling or weakness. She has pain on her ?tailbone? and nowhere else. She states a few weeks ago she had a lumbar stimulator removed and no longer has any hardware. Related Data Home Medications Medication Instructions Recorded Confirmed tizanidine 4 mg capsule 4 mg PO BID PRN Spasms 01/14/22 05/27/22 baclofen 10 mg tablet 10 mg PO TID PRN 06/09/22 06/09/22 Previous Rx's Medication Instructions Recorded dextromethorphan-guaifenesin ER 60 1 tab PO Q12H PRN cough #20 tabs 06/09/22 mg-1,200 mg tab,extend release,12hr (Mucinex DM) oxycodone 5 mg tablet 5 mg PO Q4-6H PRN pain #10 tabs 06/29/22 Allergies Allergy/AdvReac Type Severity Reaction Status Date / Time cephalexin [From KEFLEX] Allergy Severe DRY HEAVES Verified 06/29/22 10:30 adhesive tape AdvReac Mild Rash Verified 06/29/22 10:30 Review of Systems Review of Systems Narrative: GENERAL: Denies chills, fatigue, malaise, fever, sweats. HEENT: Denies sinus pain, ear pain, sore throat, difficulty swallowing, dizziness. RESPIRATORY: Denies dyspnea, cough, wheezing, hemoptysis, sputum. CARDIOVASCULAR: Denies chest pain, palpitations, orthopnea, edema, GASTROINTESTINAL: Denies nausea, vomiting, abdominal pain, diarrhea, constipation, melena. : Denies dysuria, frequency, incontinence, hematuria, urinary retention. MUSCULOSKELETAL: See HPI SKIN: Denies rash, skin lesions, or other NEUROLOGIC: Denies weakness, headache, numbness, change in speech, confusion, seizures, incoordination. PSYCHIATRIC: No concerning psychosocial issues. 12 point review of systems is negative except for those stated above Patient History Medical History Arthritis DDD (degenerative disc disease) GERD (gastroesophageal reflux disease) Greater trochanteric bursitis of right hip Herniated nucleus pulposus, lumbar Hiatal hernia Hx of multiple pulmonary nodules Hx of temporomandibular joint disorder Impingement syndrome of left shoulder Interstitial cystitis Lumbar radiculopathy Ovarian cyst Tibia/fibula fracture TMJ arthritis Surgical History History of breast biopsy History of hysterectomy History of surgical removal of nipple History of tonsillectomy S/P bilateral salpingo-oophorectomy (09/09/18) S/P laparoscopic procedure (09/09/18) Status post epidural steroid injection Family History Family/Other Family history not known due to adoption Social History marital status: household members: spouse occupational status: employed Smoking Status: Current every day smoker alcohol intake: current substance use type: does not use additional social history: Adopted Smoking Status: Current every day smoker tobacco type: cigarettes alcohol intake frequency: a few times a month Substance Use Type: marijuana Exam Narrative Exam Narrative: GENERAL: [52] year old patient appears stated age. Well-developed patient, in mild distress. HEAD: Atraumatic. Normocephalic. EYES: Pupils equal round and reactive. Extraocular motions intact. No scleral icterus. No injection or drainage. ENT: Nose without bleeding, purulent drainage. Throat without erythema, tonsillar hypertrophy or exudate. Airway patent. NECK: Trachea midline. Non tender CARDIOVASCULAR: Regular rate and rhythm without murmurs, gallops, or rubs. RESPIRATORY: Clear to auscultation. Breath sounds equal bilaterally. No wheezes, rales, or rhonchi. GASTROINTESTINAL: Abdomen soft, non-tender, nondistended. EXTREMITIES: No edema or joint tenderness. BACK: No midline neck, thoracic, lumbar pain. Incisions C/D/I. No sacral pain, only pain on coccyx. No saddle anesthesia. No numbness or tingling and lower extremities NEURO: AOx3. SKIN: No rash or erythema of visible areas Initial Vital Signs Initial Vital Signs: Vital Signs Temperature 98.1 F 06/29/22 10:20 Pulse Rate 92 H 06/29/22 10:20 Respiratory Rate 14 06/29/22 10:20 Blood Pressure 121/68 06/29/22 10:20 Pulse Oximetry 99 06/29/22 10:20 Oxygen Delivery Method 06/29/22 10:20 Course Orders Ordered: Discontinued Medications Oxycodone/Acetaminophen (Oxycodone/Acetaminophen 5/325 Tablet) 2 tab PO NOW ONE Stop: 06/29/22 10:30 Last Admin: 06/29/22 10:40 Dose: 2 tab Documented By: DEAN Vital Signs Vital signs: Vital Signs - 8 hr 06/29/22 10:20 06/29/22 10:58 Temperature 98.1 F Pulse Rate 92 H 80 Respiratory Rate 14 Blood Pressure 121/68 103/58 L Pulse Oximetry 99 99 Oxygen Delivery Method Room Air Room Air MDM - Fall MDM Narrative Medical decision making narrative: [52-year-old female with fall and tailbone pain] Multiple etiologies for patient's symptoms considered including, but not limited to: [Bruising, coccyx fracture, sacral fracture, lumbar fracture versus other] Prior Charts reviewed: Multiple prior notes consulted Patient with low risk injury and possible coccyx injury, we discussed at length at the bedside the utility of imaging how it is unlikely to change the plan. I discussed her reassuring physical exam and lack of tenderness on sacrum, lumbar spine etc.. Patient's symptoms improved over duration of stay with above-stated therapies. Findings and discharge diagnosis discussed with patient/family followed by verbalization of understanding Return precautions discussed with patient/family whom verbalize understanding of diagnosis and plan Discharge Plan Departure Patient Disposition: Home Clinical Impression: Acute coccygeal pain Instructions: How to Prevent Falls Activity Restrictions/Additional Instructions: *You have been diagnosed with [tailbone pain, possible small fracture] *What to do: *Please continue to take your regular medications as directed. [x ] New medication prescriptions sent to your pharmacy: [ [facility]] [ ] New medication written as a paper prescription [ ] No new medications given *Please follow up with your primary care provider in 2-3 days, call for an appointment. Let them know you were seen in the Emergency Department and that we ask that you be seen in follow up. We will electronically transmit a record of today's note if your PCP is in our system *If you do not have a primary care provider please contact the [facility] Resource line at [phone]. They will ask some questions about your medical history and help get you set up with a doctor in the community. *Return to Emergency Department if you should have any new, worsening or concerning symptoms, such as [fever greater than 101 F, shaking chills, worsening pain, persistent vomiting or other bothersome symptoms] You have been prescribed a short course of narcotic medications. These are potentially dangerous and addictive medications that should be used carefully. While on these medications you cannot drive or operate heavy machinery. Additionally, you cannot sign legal documents or perform any duties such as this. 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 Please understand that we cannot provide further refills of narcotics or controlled substances through the ED and your pain management will need to be through your Primary Care Provider Prescriptions: New oxycodone 5 mg tablet 5 mg PO Q4-6H PRN (Reason: pain) Qty: 10 0RF No Action tizanidine 4 mg capsule 4 mg PO BID PRN (Reason: Spasms) baclofen 10 mg tablet 10 mg PO TID PRN dextromethorphan-guaifenesin [Mucinex DM] 60-1,200 mg tablet extended release 12 hr 1 tab PO Q12H PRN (Reason: cough) Qty: 20 0RF Rx Instructions: take for cough with a full glass of water Referrals: Kenny Wilkinson MD [Primary Care Provider] - Stand Alone Forms: Patient Portal/API
[2022-06-29] MEDS: OXYCODONE/ACETAMINOPHEN 5/325 TABLET 2 TAB PO (10:40)
[2022-06-29 10:58] VITALS: BP 103/58; PULSE 80; O2SAT 99
== END 2022-06-29 10:59 | disposition home or self-care (01) ==
PROVIDERS: Emergency Provider Emergency Medicine; PCP Student in an Organized Health Care Education/Training Program
DX: M53.3 Sacrococcygeal disorders, not elsewhere classified (principal)
CPT/HCPCS: 99283; 99284

== ENCOUNTER → 2022-08-31 16:14 | Outpatient (CLI) | payer MEDICARE, OTHER, SELFPAY ==
--- NOTE | 2022-08-31 16:18 | DI.MRI.S_ITS ---
PROCEDURE: MR LUMBAR SPINE WO CON INDICATIONS: Chronic progressive low back pain lower extremity symptoms TECHNIQUE: Noncontrast sagittal T1 spin echo and T2 fast echo, sagittal STIR, and T2 fast spin echo through the lumbar spine. In cases with scoliosis, additional coronal T2 fast spin echo may be performed. COMPARISON: None. FINDINGS: Image quality: Excellent. Alignment and Curvature: There is normal bony alignment. Bone Marrow: Marrow is of normal overall signal. No acute vertebral body compression fractures. Spinal Cord: Conus medullaris terminates at the L1 level. Visualized cord demonstrates normal signal and size. Paraspinous Soft Tissues: No paravertebral masses. T12-L1: Normal appearance. L1-L2: Normal appearance. L2-L3: There is likely a left perineural cyst which abuts the exiting left nerve root best seen on the sagittal view (series 3/image 12). No canal stenosis. No neural foraminal stenosis. L3-L4: There is a 7 mm left perineural cyst best seen on the axial view (series 5/image 18) which abuts the exiting left nerve root. No canal stenosis. No neural foraminal stenosis. L4-L5: Mild disc desiccation and height loss. Broad-based disc bulge. No canal stenosis. Mild bilateral neural foraminal stenosis. There are small bilateral posterolateral focal high-intensity zones. L5-S1: Mild disc desiccation and height loss. No canal stenosis. No foraminal stenosis. There is a small focal posterior high-intensity zone. IMPRESSION: 1. 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 2. Left-sided perineural cysts at L2-3 and L3-4 which likely abuts the exiting nerve roots. 3. No significant canal stenosis or foraminal stenosis of the lumbar spine. Dictated by: Isabel Durham M.D. on 09/01/2022 at 10:56 Approved by: Isabel Durham M.D. on 09/01/2022 at 11:07
== END ==
PROVIDERS: PCP Student in an Organized Health Care Education/Training Program; Referring Provider Physical Medicine & Rehabilitation; Visit Provider Physical Medicine & Rehabilitation
DX: M51.16 Intervertebral disc disorders with radiculopathy, lumbar region (principal); M51.17 Intervertebral disc disorders with radiculopathy, lumbosacral region; G96.191 Perineural cyst
CPT/HCPCS: 72148

== ENCOUNTER 2022-10-08 15:09 | Outpatient (CLI) | payer MEDICARE, OTHER, SELFPAY ==
[2022-10-08] VITALS (9 sets, daily range): BP systolic 108–134; BP diastolic 65–90; PULSE 63–76; RESP 16–22; TEMP 36.3; O2SAT 96–100
--- NOTE | 2022-10-08 15:10 | DI.RAD.S_ITS ---
PROCEDURE: PAIN L/S TRANSFORAMINAL INJECT INDICATIONS: SPONDYLOSIS COMPARISON: [facility], CT, CT LUMBAR MYELOGRAM, 05/27/2022, 10:11. [facility], MR, MR LUMBAR SPINE WO CON, 08/31/2022, 16:35. FINDINGS: Fluoroscopic spot filming was performed to verify placement of spinal needles at the L4-L5 level(s), as labeled on the films. Appropriate location(s) of the needle tip(s) was confirmed by injection of iodinated contrast. IMPRESSION: Fluoroscopy for pain management. Dictated by: Jillian Hernandez M.D. on 10/09/2022 at 7:46 Approved by: Jillian Hernandez M.D. on 10/09/2022 at 7:46
[2022-10-08] MEDS: MIDAZOLAM 2 MG/2 ML VIAL 4 MG IV (16:08)
[2022-10-08] MEDS: BETAMETHASONE 30 MG/5 ML MDV 6 MG INJ (16:09)
[2022-10-08] MEDS: BUPIVACAINE 0.25% (PF) VIAL 2 ML INJ (16:09)
[2022-10-08] MEDS: DEXAMETHASONE 10 MG/ML VIAL 20 MG INJ (16:09)
[2022-10-08] MEDS: IOPAMIDOL 15 ML VIAL 3 ML INJ (16:10)
--- NOTE | 2022-10-08 16:20 | P.PCN_ITS ---
Date/Time/Diagnoses Date of procedure: 10/08/22 Time of procedure: 16:21 Pre-procedure diagnosis: 1. FORAMINAL STENOSIS WITH LE SYMPTOMS Post-procedure diagnosis: same Procedure Notes Procedure: 1. FLUOROSCOPICALLY GUIDED CONTRAST CONTROLLED TRANSFORAMINAL EPIDURAL STEROID INJECTION - LEFT L4/5 Indications: Pauly is referred by Dr. Wilkinson for treatment of Foraminal Stenosis with Left LE Symptoms Physician: Neftali Tyler Total Fluoroscopy time (seconds): 9 Total sedation minutes: 10 Complications: none Procedure in detail & Post-procedure care: FINDINGS Foraminal Nerve Root Compression secondary to disc disease and facet hypertrophy DESCRIPTION OF PROCEDURE Following review of allergy and review of potential side effects and complications, including, but not necessarily limited to, infection, allergic reaction, local tissue breakdown, stroke, temporary or permanent nerve injury, paralysis, and possible , the patient indicated that the patient understood and agreed to proceed. An informed consent document was signed by the patient, witnessed by a nurse, and placed in the patient's chart. Additionally, other treatment options including medications, modalities, and physical therapy were reviewed with the patient. After review of previous anaesthesic history and IV conscious sedation the patient was deemed safe to proceed with today?s procedure with IV conscious sedation as ASA class II designation. Safety time-out was performed to confirm patient ID, procedure to be performed and site of procedure. IV sedation was accomplished with a combination of 4mg of Versed administered by the RN after DO order, titrated to patient comfort during the course of the procedure while the patient remained responsive to all verbal commands In the prone position following sterile prep and drape of the lumbar region, the left L4/5 posterior neuroforamen was identified fluoroscopically. The skin was anesthetized via a 25-gauge 1.5-inch needle with 1% lidocaine solution. At this point, a 25-gauge 3.5-inch spinal needle was atraumatically introduced and advanced under fluoroscopic guidance through the posterior left L4/5 neuroforamen to approximately the anterior aspect of the canal. Depth was confirmed on lateral view. Following negative aspiration, injection of approximately 1.5 cc of Isovue 200 under live fluoroscopy in the AP view confirmed excellent flow along the nerve root, into the epidural space without vascular or intrathecal uptake observed Radiological data, including multiple fluoroscopic views of the lumbosacral spine, reveal a spinal needle at the left L4/5 posterior neuroforamen. Subsequent views show flow of contrast material flowing superiorly and inferiorly along the nerve root confirming epidural flow. Subsequently, a test dose of 1.5 cc of 1% lidocaine solution was administered and patient was observed for two minutes for signs or symptoms of complications, including abdominal pain, shortness of breath, bilateral upper or lower extremity weakness, nausea and vomiting, prior to steroid injection. At this point, a total of 3cc or 20mg of dexamethasone and 6mg of betamethasone was injected without incident. The procedure tolerated the procedure well without signs or symptoms of complications prior to transfer to the recovery area continued monitoring without incident. The patient was then transferred to the recovery area where they were observed for an appropriate time after the injection. The patient reported a VAS score of 7 prior to the procedure and a post- procedure VAS of 0. POST OP INSTRUCTIONS The patient was provided a Pain Log to continue to record their response to the target-specific procedure prior to follow-up visit with their referring physician. Additionally, specific post-injection care instructions and a contact number to our office were provided if concerns arise regarding possible complications associated with the procedure are suspected.
== END 2022-10-08 16:44 | disposition home or self-care (01) ==
PROVIDERS: PCP Student in an Organized Health Care Education/Training Program; Referring Provider Physical Medicine & Rehabilitation; Visit Provider Physical Medicine & Rehabilitation
DX: M51.26 Other intervertebral disc displacement, lumbar region (principal); M51.16 Intervertebral disc disorders with radiculopathy, lumbar region
CPT/HCPCS: 64483; 99152; J0702; J1100; J2250; J3490

== ENCOUNTER → 2023-05-31 13:27 | Outpatient (CLI) | payer MEDICARE, OTHER, SELFPAY ==
--- NOTE | 2023-05-31 | DI.US.S_ITS ---
ULTRASOUND OF LEFT BREAST AND AXILLA: 05/31/2023 CLINICAL: Focal left axilla pain. Comparison is made to exams dated: 02/21/2022 mammogram, 05/31/2023 mammogram, 10/21/2020 mammogram, 08/09/2018 mammogram, 12/17/2006 mammogram, and 10/15/2005 mammogram - [facility]. Color flow and real-time ultrasound of the left breast axilla were performed. Barney scale images of the real-time examination were reviewed. There are lymph nodes in the left axilla. No other significant abnormalities were seen sonographically in the left axilla. IMPRESSION: BENIGN There is no sonographic evidence of malignancy. Recommend clinical follow up for persistent or worsening symptoms, or development of any clinically suspicious findings. A 1 year screening mammogram is recommended. Findings and recommendations were conveyed to the patient during today's evaluation. This exam was interpreted at Station ID: [id number]. Electronically Signed By: Sabino Spence M.D. at/:05/31/2023 16:02:03 letter sent: Clinical Evaluation Ultrasound BI-RADS: 2 Benign
--- NOTE | 2023-05-31 | DI.US.S_ITS ---
ULTRASOUND OF RIGHT BREAST AND AXILLA: 05/31/2023 CLINICAL: Focal right axilla pain. Comparison is made to exams dated: 05/31/2023 mammogram, 02/21/2022 mammogram, 10/21/2020 mammogram, 08/09/2018 mammogram, 12/17/2006 mammogram, and 10/15/2005 mammogram - [facility]. Color flow and real-time ultrasound of the right breast axilla were performed. Barney scale images of the real-time examination were reviewed. There are benign lymph nodes in the right axilla. No other significant abnormalities were seen sonographically in the right axilla. IMPRESSION: BENIGN There is no sonographic evidence of malignancy. Recommend clinical follow up for persistent or worsening symptoms, or development of any clinically suspicious findings. A 1 year screening mammogram is recommended. Findings and recommendations were conveyed to the patient during today's evaluation. This exam was interpreted at Station ID: [id number]. Electronically Signed By: Sabino Spence M.D. at/:05/31/2023 16:00:22 letter sent: Clinical Evaluation Ultrasound BI-RADS: 2 Benign
--- NOTE | 2023-05-31 13:28 | DI.MG.S_ITS ---
BILATERAL DIGITAL DIAGNOSTIC MAMMOGRAM 3D/2D: 05/31/2023 CLINICAL: Bilateral axilla pain. Comparison is made to exams dated: 02/21/2022 mammogram, 10/21/2020 mammogram, and 08/09/2018 mammogram - . Both breasts are extremely dense, which lowers the sensitivity of mammography (category d />75% glandular tissue). No significant masses, calcifications, or other findings are seen in either breast. IMPRESSION: INCOMPLETE: NEEDS ADDITIONAL IMAGING EVALUATION There is no abnormality seen in either axilla to correspond with the area of clinical concern and pain , however, bilateral axillary ultrasound is recommended for further evaluation and is scheduled to immediately follow this examination. Based on the Tyrer Cuzick model (a risk assessment model) the patient's lifetime risk is 8.6% and her 10 year risk is 2.2%. According to the ACR, ACS, and NCCN guidelines, an annual breast MRI exam along with mammogram is recommended if the patient's lifetime risk is 20% or greater. This exam was interpreted at Station ID: [id number]. NOTE: For mammograms, a report in lay terms will be sent to the patient. Approximately 15% of breast malignancies will not be visualized mammographically. In the management of a palpable breast mass, a negative mammogram must not discourage biopsy of a clinically suspicious lesion. Electronically Signed By: Sabino Spence M.D. aty/:05/31/2023 15:42:22 ACR BI-RADS Category 0: Incomplete 3340F
== END ==
LOC: MAMMO 13:28
PROVIDERS: PCP Family Medicine; Referring Provider Family Medicine; Visit Provider Family Medicine
DX: R92.2 Inconclusive mammogram (principal); R92.343 Mammographic extreme density, bilateral breasts; N64.4 Mastodynia; M79.622 Pain in left upper arm; Z80.3 Family history of malignant neoplasm of breast
CPT/HCPCS: 76882; 77066; G0279

== ENCOUNTER → 2023-06-11 13:47 | Outpatient (CLI) | payer MEDICARE, OTHER, SELFPAY ==
[2023-06-11 14:52] LABS: Add Manual Diff / Slide Review NO; Basophils Absolute Auto 100 /uL (0-100); Basophils Percent Auto 0.7 % (0-2); Eosinophils Absolute Auto 0 /uL (0-450); Eosinophils Percent Auto 0.4 % (2-4); Hematocrit 41.6 % (36-46); Lymphocytes Absolute Auto 2300 /uL (1100-4500); Lymphocytes Percent Auto 29.2 % (25-40); Mean Corpuscular HGB Conc 33.7 % (30-36); Mean Corpuscular Hemoglobin 31.2 PG (26-34); Mean Corpuscular Volume 92.7 fL (80-100); Monocytes Absolute Auto 300 /uL (0-900); Monocytes Percent Auto 3.8 % (3-14); Neutrophils Absolute Auto 5100 /uL (1500-7000); Neutrophils Percent Auto 65.9 % (50-75); Platelet Count 241 X10^3/uL (150-400); Red Blood Cell Count 4.49 X10^6/uL (4.0-5.2); Red Cell Distribution Width 12.8 % (11.6-14.8); White Blood Cell Count 7.8 X10^3/uL (4.5-11.0)
[2023-06-11 15:08] LABS: Hemoglobin A1C% w Est Avg Glu 5.2 % (4.0-6.0)
[2023-06-11 15:09] LABS: Alanine Aminotransferase 24 IU/L (<35); Albumin Globulin Ratio 1.7 (1.0-2.8); Alkaline Phosphatase 82 U/L (38-126); Aspartate Aminotransferase 27 IU/L (14-36); BUN Creatinine Ratio 12.9 (6-22); Bilirubin Total 0.6 mg/dL (0.2-1.3); Blood Urea Nitrogen 9 mg/dL (7-17); C-Reactive Protein Quant 0.6 mg/dL (<1.0); Calcium 10.2 mg/dL (8.4-10.2); Carbon Dioxide 29 mmol/L (22-32); Chloride 102 mmol/L (98-107); Creatine Kinase 62 U/L (30-135); Estimated Glomerular Filt Rate > 60 mL/min (>60); Globulin 2.9 g/dL (1.7-4.1); Glucose 92 mg/dL (70-100); HEMOLYSIS < 15 (0-50); Potassium 4.1 mmol/L (3.4-5.1); Sodium 139 mmol/L (137-145); Total Protein 7.9 g/dL (6.3-8.2)
[2023-06-11 15:11] LABS: Rheumatoid Factor < 8.6 IU/mL (<12.0)
[2023-06-11 15:37] LABS: TSH w/ Reflex to FT4 1.55 uIU/mL (0.47-4.68)
[2023-06-11 15:51] LABS: Erythrocyte Sedimentation Rate 6 MM/HR (0-20)
[2023-06-16 21:49] LABS: ANA Screen, IFA Negative (.)
== END ==
PROVIDERS: PCP Family Medicine; Referring Provider Family Medicine; Visit Provider Family Medicine
DX: R52 Pain, unspecified (principal); M79.10 Myalgia, unspecified site
CPT/HCPCS: 80053; 82550; 83036; 84443; 85025; 85651; 86038; 86140; 86430

== ENCOUNTER 2023-07-27 12:38 | Outpatient (CLI) | payer MEDICARE, OTHER, SELFPAY ==
[2023-07-27] VITALS (9 sets, daily range): BP systolic 101–118; BP diastolic 51–60; PULSE 64–75; RESP 12–18; TEMP 36.7; O2SAT 98–100
--- NOTE | 2023-07-27 13:30 | DI.RAD.S_ITS ---
PROCEDURE: PAIN L/S TRANSFORAM INJECT RACHEAL COMPARISON: [facility], XA, PAIN L/S TRANSFORAM INJECT RACHEAL, 09/11/2021, 12:09. INDICATIONS: radiculopathy FINDINGS: 9 fluoroscopic images of bilateral needle placement and epidural injection at the L4-5 level. Please see procedure report for details. IMPRESSION: 9 fluoroscopic images of bilateral needle placement and epidural injection at the L4-5 level. Please see procedure report for details. Dictated by: Yael Kauffman M.D. on 07/27/2023 at 22:14 Approved by: Yael Kauffman M.D. on 07/27/2023 at 22:15
[2023-07-27] MEDS: MIDAZOLAM 2 MG/2 ML VIAL IV (13:49)
[2023-07-27] MEDS: fentaNYL 100 MCG/2 ML INJ 50 MCG IV (13:56)
[2023-07-27] MEDS: DEXAMETHASONE 10 MG/ML VIAL 20 MG INJ (14:01)
[2023-07-27] MEDS: BUPIVACAINE 0.25% (PF) VIAL 2 ML INJ (14:01)
[2023-07-27] MEDS: iopamidoL 15 ML VIAL 3 ML INJ (14:01)
[2023-07-27] MEDS: BETAMETHASONE 30 MG/5 ML MDV 12 MG INJ (14:01)
[2023-07-27] MEDS: LIDOCAINE 1% 20 ML 5 ML INJ (14:02)
--- NOTE | 2023-07-27 14:08 | PM.PROC.IR.1 ---
Date/Time/Diagnoses Date of procedure: 07/27/23 Time of procedure: 14:09 Pre-procedure diagnosis: 1. FORAMINAL STENOSIS WITH LE SYMPTOMS Procedure Notes Procedure: 1. FLUOROSCOPICALLY GUIDED CONTRAST CONTROLLED TRANSFORAMINAL EPIDURAL STEROID INJECTION - BILATERAL L4/5 TFESI Indications: Pauly is referred by Dr. Jackson for treatment of Foraminal Stenosis with bilateral LE Symptoms Physician: Neftali Tyler Total Fluoroscopy time (seconds): 11 Total sedation minutes: 16 Complications: none Procedure in detail & Post-procedure care: FINDINGS Foraminal Nerve Root Compression secondary to disc disease and facet hypertrophy DESCRIPTION OF PROCEDURE Following review of allergy and review of potential side effects and complications, including, but not necessarily limited to, infection, allergic reaction, local tissue breakdown, stroke, temporary or permanent nerve injury, paralysis, and possible , the patient indicated that the patient understood and agreed to proceed. An informed consent document was signed by the patient, witnessed by a nurse, and placed in the patient's chart. Additionally, other treatment options including medications, modalities, and physical therapy were reviewed with the patient. After review of previous anaesthesic history and IV conscious sedation the patient was deemed safe to proceed with today?s procedure with IV conscious sedation as ASA class II designation. Safety time-out was performed to confirm patient ID, procedure to be performed and site of procedure. IV sedation was accomplished with a combination of 2mg of Versed was administered by the RN after DO order, titrated to patient comfort during the course of the procedure while the patient remained responsive to all verbal commands In the prone position following sterile prep and drape of the lumbar region, the right L4/5 posterior neuroforamen was identified fluoroscopically. The skin was anesthetized via a 25-gauge 1.5-inch needle with 1% lidocaine solution. At this point, a 25-gauge 3.5-inch spinal needle was atraumatically introduced and advanced under fluoroscopic guidance through the posterior right L4/5 neuroforamen to approximately the anterior aspect of the canal. Depth was confirmed on lateral view. Following negative aspiration, injection of approximately 1.5cc of Isovue 200 under live fluoroscopy in the AP view confirmed excellent flow along the nerve root, into the epidural space without vascular or intrathecal uptake observed Radiological data, including multiple fluoroscopic views of the lumbosacral spine, reveal a spinal needle at the right L4/5 posterior neuroforamen. Subsequent views show flow of contrast material flowing superiorly and inferiorly along the nerve root confirming epidural flow. Subsequently, a test dose of 1.5cc of 1% lidocaine solution was administered and patient was observed for two minutes for signs or symptoms of complications, including abdominal pain, shortness of breath, bilateral upper or lower extremity weakness, nausea and vomiting, prior to steroid injection. At this point, a total of 2cc or 10mg of dexamethasone and 6mg betamethasone was injected without incident. Attention was then refocused to the left L4/5 level where the identical procedure was replicated. The procedure tolerated the procedure well without signs or symptoms of complications prior to transfer to the recovery area continued monitoring without incident. The patient was then transferred to the recovery area where they were observed for an appropriate time after the injection. The patient reported a VAS score of 7 prior to the procedure and a post-procedure VAS of 0. POST OP INSTRUCTIONS The patient was provided a Pain Log to continue to record their response to the target-specific procedure prior to follow-up visit with their referring physician. Additionally, specific post-injection care instructions and a contact number to our office were provided if concerns arise regarding possible complications associated with the procedure are suspected.
== END 2023-07-27 14:31 | disposition home or self-care (01) ==
PROVIDERS: PCP Family Medicine; Referring Provider Physical Medicine & Rehabilitation; Visit Provider Physical Medicine & Rehabilitation
DX: M48.061 Spinal stenosis, lumbar region without neurogenic claudication (principal); M51.16 Intervertebral disc disorders with radiculopathy, lumbar region; M47.26 Other spondylosis with radiculopathy, lumbar region
CPT/HCPCS: 64483; 99152; J0702; J1100; J2250; J3010; J3490

== ENCOUNTER → 2023-09-21 | Outpatient (CLI) | payer MEDICARE, OTHER, SELFPAY ==
--- NOTE | 2023-09-21 15:21 | DI.CT.S_ITS ---
PROCEDURE: CT IVP A/P W/WO INDICATIONS: hematuria and cigarette abuse history TECHNIQUE: Optional 5 mm thick noncontrast images acquired from the diaphragm to the symphysis pubis. After the administration of intravenous contrast, 5 mm thick images acquired from the diaphragm to the symphysis pubis after a 10-minute delay. 2 mm thick coronal and sagittal reformats were then performed of the kidneys and ureters. For radiation dose reduction, the following was used: automated exposure control, adjustment of mA and/or kV according to patient size. COMPARISON: [facility], CT, CT ABDOMEN PELVIS W CON, 08/13/2020, 13:48. [facility], CT, CT ABDOMEN PELVIS W CON, 09/29/2020, 19:06. [facility], CT, CT ABDOMEN PELVIS W CON, 03/10/2022, 18:00. FINDINGS: Image quality: Diagnostic. Kidneys and Ureters: Both kidneys are normal in size, without hydronephrosis or nephrolithiasis. No perinephric fat stranding. There is normal bilateral renal enhancement. Renal calyces appear normal in morphology when filled with contrast. Opacified portions of both ureters demonstrate normal caliber Bladder: Bladder base appears irregular. Cannot rule out a mass arising from the right posterior lateral bladder base. No calcified bladder stones. OTHER: Lower chest: Unremarkable. Liver: No solid mass. Gallbladder: No radiopaque gallstones or wall thickening. Biliary ducts: No biliary dilation. Pancreas: No ductal dilation. Spleen: Size is within normal limits. Adrenal Glands: No adrenal nodules. Stomach and Bowel: Normal colonic caliber, without significant wall thickening. Peritoneum: No abnormal intraperitoneal fluid. No free air. Ventral Wall: No hernia. Abdominal Nodes: No retroperitoneal or mesenteric adenopathy by size criteria. Vessels: Aorta and inferior vena cava are normal in size. Mild to moderate atherosclerotic calcifications. PELVIS: Pelvic Organs: Uterus is absent consistent with hysterectomy. Pelvic Nodes: No enlarged lymph nodes. Miscellaneous: No inguinal hernias are seen. Bones: No aggressive osseous abnormality. Mild spondylitic changes in lumbar spine. IMPRESSION: 1. Irregularity of the bladder base. Cannot rule out a mass in the right posterior lateral inferior aspect of the urinary bladder. Recommend cystoscopy for further evaluation. Dictated by: Jillian Hernandez M.D. on 09/22/2023 at 9:58 Approved by: Jillian Hernandez M.D. on 09/22/2023 at 11:51
== END ==
LOC: CT 15:20
PROVIDERS: PCP Family Medicine; Referring Provider Specialist; Visit Provider Specialist
DX: R31.9 Hematuria, unspecified (principal); Z87.891 Personal history of nicotine dependence
CPT/HCPCS: 74178; Q9967

== ENCOUNTER 2023-10-08 06:58 | Day surgery (SDC) | payer MEDICARE, OTHER, SELFPAY ==
[2023-09-29 15:16] VITALS: BMI 18.8
[2023-10-08 07:32] VITALS: BP 124/75; PULSE 65; RESP 18; TEMP 36.8; O2SAT 100; BMI 18.8
[2023-10-08] MEDS: LACTATED RINGERS 1,000 ML 21 ML IV (07:48)
--- NOTE | 2023-10-08 08:53 | PM.PREOP ---
Pre-operative Note Interval Note History & Physical reviewed/Exam performed by Physician: Yes Changes to H&P: No
[2023-10-08] MEDS: ACETAMINOPHEN IV 1,000 MG/100 ML VIAL 400 MG IV (09:00)
[2023-10-08] MEDS: CIPROFLOXACIN 400 MG/200 ML PIGGYBACK 200 MG IV (09:15)
--- NOTE | 2023-10-08 09:21 | SUR.OPER ---
Lithotomy on padded OR bed, head on pillow, arms secured on padded arm boards at <90 degrees abduction. Legs secured in padded yellow fins stirrups.
[2023-10-08] MEDS: DIMETHYL SULFOXIDE 120 ML LIQUID 50 ML URE (09:30)
[2023-10-08 09:38] VITALS: BP 102/65; PULSE 77; RESP 11; TEMP 36.2; O2SAT 94
[2023-10-08 09:42] VITALS: BP 104/72; PULSE 79; RESP 14; O2SAT 97
--- NOTE | 2023-10-08 09:44 | PM.OP.1 ---
Operative Date/Time/Diagnoses Date of procedure: 10/08/23 Time of procedure: 09:30 Pre-op diagnosis: 1. Interstitial cystitis. 2. Microscopic hematuria. Procedure & Clinicians Procedure: 1. Cystoscopy/hydrodistention. 2. Cystoscopy/instillation DMSO (50 cc). Same procedure as scheduled: Yes Indications: 1. Interstitial cystitis. 2. Microscopic hematuria. Surgeon: Ollie Nazario Click Yes if Unassisted: Yes Anesthesia Type: General Operative Notes Findings: 1. Urethra-normal caliber and location without mass, lesion, or discharge. 2. Bladder-trace trabeculation. Normal ureteral orifices bilaterally with clear efflux. No stone, diverticulum, or suspicious urothelium. Following 2 minute hydrodistention/retention at gravity fill bladder capacity reexamination of the bladder identified 3 or 4 regions of petechiae formation primarily confined to the bladder base and lower lateral and posterior wall. Retained gravity filled bladder capacity was measured at 600 cc. Closure Type: not applicable Specimen(s): none sent Estimated Blood Loss (mL): 2 Blood products transfused: none Procedure in detail: The patient was positioned in supine and was administered general anesthesia. She was then repositioned in semilithotomy in the lower abdomen, genitalia, and groin were then prepped and draped in sterile fashion. The 22 [place] panendoscope was then passed and lower urinary tract with the findings as described above. The bladder was then filled via gravity to capacity at 80 cm irrigant bag height. A gravity fill volume was retained for 2 minutes after which the bladder was drained. Reexamination of the bladder demonstrated the findings as described above. The bladder was again drained completely and 50 cc of DMSO of the were then instilled in the bladder via the cystoscope. The cystoscope was then removed. The patient was then repositioned in supine, was awakened, transferred to [facility], and then transported to recovery awake and in stable condition. Complications: none Post-operative Condition: stable Disposition: PACU Plan for aftercare: 1. 30 minute DMSO retention. 2. Discharge home.
[2023-10-08 09:48] VITALS: BP 112/74; PULSE 72; RESP 14; O2SAT 98
[2023-10-08] MEDS: OXYCODONE IR 5 MG TABLET PO (09:56)
== END 2023-10-08 10:15 | disposition home or self-care (01) ==
PROVIDERS: PCP Family Medicine; Referring Provider Specialist; Visit Provider Specialist
PROC: 3E1K78Z Irrigation of Genitourinary Tract using Irrigating Substance, Via Natural or Artificial Opening (ICD-10-PCS; CPT 51700; principal; 2023-10-08 09:00)
DX: N30.10 Interstitial cystitis (chronic) without hematuria (principal)
CPT/HCPCS: 52260; 51700; J0136; J0744; J1100; J1212; J2250; J2405; J2704; J3010

== ENCOUNTER → 2023-10-15 09:55 | Outpatient (CLI) | payer MEDICARE, OTHER, SELFPAY | PROVIDERS: PCP Family Medicine; Referring Provider Specialist; Visit Provider Specialist | DX: N30.10 Interstitial cystitis (chronic) without hematuria (principal) | CPT/HCPCS: 87077; 87086; 87147; 87186 ==

== ENCOUNTER → 2024-07-04 15:23 | Outpatient (CLI) | payer MEDICARE, OTHER, SELFPAY | PROVIDERS: PCP Family Medicine; Visit Provider Urology | DX: N30.10 Interstitial cystitis (chronic) without hematuria (principal); R39.9 Unspecified symptoms and signs involving the genitourinary system | CPT/HCPCS: 81002; 87086; 99214 ==

== ENCOUNTER → 2024-08-18 15:41 | Outpatient (CLI) | payer MEDICARE, OTHER, SELFPAY | PROVIDERS: PCP Family Medicine; Visit Provider Urology | DX: N30.10 Interstitial cystitis (chronic) without hematuria (principal); R39.9 Unspecified symptoms and signs involving the genitourinary system | CPT/HCPCS: 87086 ==

== ENCOUNTER → 2024-09-12 14:11 | Outpatient (CLI) | payer MEDICARE, OTHER, SELFPAY | PROVIDERS: PCP Family Medicine; Visit Provider Urology | DX: N30.10 Interstitial cystitis (chronic) without hematuria (principal) | CPT/HCPCS: 87086 ==

== ENCOUNTER → 2025-03-27 17:34 | Outpatient (CLI) | payer MEDICARE, OTHER, SELFPAY ==
[2025-03-27 18:57] LABS: Appearance Urine UA CLEAR; Bilirubin Urine UA NEGATIVE (NEGATIVE); Color Urine UA YELLOW; Glucose Urine UA NEGATIVE (Negative); Ketones Urine UA TRACE (NEGATIVE); Leukocyte Esterase Urine UA NEGATIVE (NEGATIVE); Nitrite Urine UA NEGATIVE (Negative); Occult Blood Urine UA 2+ (Negative); Protein Urine UA NEGATIVE (Negative); Specific Gravity Urine UA >=1.030 (1.000-1.035); Urobilinogen Urine UA 1.0 E.U./dL (0.2)
[2025-03-27 18:59] LABS: pH Urine UA 5.5 (4.5-8.0)
[2025-03-27 19:04] LABS: Culture Indicated Urine Cult Not Indicated
== END ==
PROVIDERS: PCP Family Medicine; Visit Provider Obstetrics & Gynecology Gynecology
DX: N32.81 Overactive bladder (principal); N95.1 Menopausal and female climacteric states; N30.10 Interstitial cystitis (chronic) without hematuria
CPT/HCPCS: 81001

== ENCOUNTER → 2025-04-04 07:25 | Outpatient (CLI) | payer MEDICARE, OTHER, SELFPAY ==
--- NOTE | 2025-04-04 07:30 | DI.US.S_ITS ---
PROCEDURE: US ABDOMEN COMPLETE INDICATIONS: abdominal pain; hx of gastritis TECHNIQUE: Real-time scanning was performed of the abdominal and retroperitoneal organs, with image documentation. COMPARISON: [facility], US, ABDOMEN COMPLETE, 01/25/2017, 20:58. FINDINGS: Liver: Liver is normal in size. Slightly increased liver parenchymal echotexture is seen. No discrete hepatic lesion. Gallbladder: No gallstones. No gallbladder wall thickening or pericholecystic fluid. No sonographic Banda sign. Biliary ducts: Intrahepatic bile ducts are non-dilated. Extrahepatic bile duct caliber measures 6.7 mm. Normal is 6-7 mm or less in diameter, or 10 mm or less post-cholecystectomy. Pancreas: Visualized portions of the pancreas are sonographically normal. Spleen: Spleen is normal in size and homogeneous in echotexture. Kidneys: Kidneys are normal in size and echotexture. Right kidney measures 10.1 cm long; left kidney measures 11.3 cm long. No hydronephrosis or nephrolithiasis. No solid masses. Aorta: Visualized aorta is normal in caliber at less than 3 cm. Atherosclerotic calcifications are seen in mid to distal abdominal aorta. Iliacs: Proximal common iliac arteries are normal in caliber at less than 2.5 cm. IVC: Intrahepatic inferior vena cava is patent. Miscellaneous: No free abdominal fluid. Anterior abdominal wall defect of umbilicus measures 2 cm in transverse dimension with herniation sac contains fat only. IMPRESSION: 1. Mild hepatic steatosis, no discrete hepatic lesion. 2. Small supraumbilical fat containing ventral hernia as described above. 3. Mild atherosclerotic calcifications seen in mid to distal abdominal aorta. No abdominal aortic aneurysm. 4. Rest of the exam is unremarkable. Dictated by: Aureliano Norman M.D. on 04/04/2025 at 9:17 Approved by: Aureliano Norman M.D. on 04/04/2025 at 9:19
== END ==
LOC: US 07:29
PROVIDERS: PCP Family Medicine; Referring Provider Family Medicine; Visit Provider Family Medicine
DX: R10.9 Unspecified abdominal pain (principal); K76.0 Fatty (change of) liver, not elsewhere classified; K43.9 Ventral hernia without obstruction or gangrene; I70.0 Atherosclerosis of aorta; Z87.19 Personal history of other diseases of the digestive system
CPT/HCPCS: 76700

== ENCOUNTER → 2025-04-04 10:15 | Outpatient (CLI) | payer MEDICARE, OTHER, SELFPAY | PROVIDERS: PCP Family Medicine; Visit Provider Urology | DX: R31.9 Hematuria, unspecified (principal) | CPT/HCPCS: 87086 ==

== ENCOUNTER 2025-04-13 08:42 | Day surgery (SDC) | payer MEDICARE, OTHER, SELFPAY ==
[2025-04-09 10:13] VITALS: BMI 18.1
[2025-04-13] VITALS (8 sets, daily range): BP systolic 105–137; BP diastolic 51–70; PULSE 60–80; RESP 13–18; TEMP 36.1–37.2; O2SAT 97–100
[2025-04-13] MEDS: LACTATED RINGERS 1,000 ML 21 ML IV (09:29)
--- NOTE | 2025-04-13 10:20 | PM.PREOP ---
Pre-operative Note COVID-19 COVID-19 status: Not tested Interval Note History & Physical reviewed/Exam performed by Physician: Yes Changes to H&P: No
[2025-04-13] MEDS: ONABOTULINUMTOXINA 100 UNIT VIAL INJ (11:10)
--- NOTE | 2025-04-13 11:17 | SUR.OPER ---
Lithotomy on padded OR bed, head on pillow,arms tucked. Legs secured in padded yellow fins stirrups.
--- NOTE | 2025-04-13 11:22 | PM.OP.1 ---
Operative Date/Time/Diagnoses Date of procedure: 04/13/25 Time of procedure: 11:00 Pre-op diagnosis: Overactive bladder Post-op diagnosis: same Procedure & Clinicians Procedure: Cystoscopy Intravesical instillation of Botox Same procedure(s) as scheduled: Yes Indications: 54 y/o F noted to have symptoms consistent w/ overactive bladder. Discussed treatment options of OAB/UUI to include avoidance of common bladder irritants, remaining well-hydrated, pelvic floor physical therapy, urge suppression, percutaneous tibial nerve stimulation, trial of anticholinergics or beta-3 agonists, Interstim or intravesical Botox. Discussed possible side effects of anticholinergics to include dry eyes, dry mouth, constipation, blurry vision and mental confusion. Discussed possible side effects of beta-3 agonists to include a small increase in systolic blood pressure. Discussed risks of the procedure to include but not limited to pain, bleeding, infection, inadvertent injury to urethra/bladder/ureteral orifice requiring either prolonged catheterization and/or an open emergent procedure to repair these structures, as well as the need for an indwelling pink catheter and/or CIC should her bladder become atonic secondary to the Botox injection. Surgeon: Denilson Ventura Assisted?: No Anesthesia Type: General Operative Notes Findings: Unremarkable cystoscopy Closure Type: not applicable Specimen(s): none sent Applied: none Estimated Blood Loss (mL): 2 Procedure in detail: Patient was identified in the preoperative holding area and consent confirmed. She was then brought to the operating room where general anesthesia was induced.? She was then placed in the low lithotomy position. She was then prepped and draped in the usual sterile fashion. A surgical timeout was conducted and all were in agreement. Access to the bladder was obtained via a 22Fr cystoscope.? Complete cystoscopy was performed and no concerning masses or lesions were noted. Bilateral ureteral orifices were easily visualized and noted to be orthotopic in nature. A total of 100 units of Botox was mixed with 10 cc of normal saline and instillated in 1ml aliquots along the posterior bladder wall. Hemostasis was evaluated at case end and noted to be excellent. The bladder was then drained and the cystoscope was removed.? Anesthesia was reversed, she was extubated in the OR and transferred to the PACU in stable condition for recovery. Complications: none Post-operative Condition: stable Disposition: PACU Plan for aftercare: Discharge home from PACU. Will return to Urology clinic when her symptoms worsen and she is in need of a repeat intravesical instillation of Botox.
[2025-04-13] MEDS: ACETAMINOPHEN 325 MG TABLET 975 MG PO (11:35)
== END 2025-04-13 12:27 | disposition home or self-care (01) ==
PROVIDERS: PCP Family Medicine; Referring Provider Family Medicine; Visit Provider Urology
PROC: (CPT 52287; principal; 2025-04-13 10:30)
DX: N32.81 Overactive bladder (principal); N30.10 Interstitial cystitis (chronic) without hematuria; R35.0 Frequency of micturition; R35.1 Nocturia
CPT/HCPCS: 52287; J0585; J0689; J1885; J2250; J2405; J2704; J7120